=== PATIENT | female | born 1945 | race Caucasian/White ===

== ENCOUNTER 2019-07-15 22:16 | Inpatient (IN) | payer MEDICARE, OTHER ==
[2019-07-16] MEDS: INSULIN LISPRO SLIDING SCALE 100 UNITS/ML UNIT SUBQ SCH ×4 (07:30→20:57)
[2019-07-16] MEDS ORDERED: Tolterodine Tartrate 4 mg ER Cap PO SCH (09:00)
[2019-07-16] MEDS ORDERED: Non-Formulary Item 1 EA (Duloxetine Hcl [Cymbalta] 60 MG) PO SCH (09:00)
[2019-07-16] MEDS: Levothyroxine 0.025 Mg Tab PO SCH (09:00)
[2019-07-16] MEDS: Potassium Chloride 20 mEq ER Tab PO SCH (09:18)
[2019-07-16] MEDS: Aspirin 81mg Chewable Tab PO SCH (09:21)
[2019-07-16] MEDS: Albuterol/Ipratropium Neb 3 ML AERS HHN SCH ×2 (09:30→12:09)
--- NOTE | 2019-07-16 09:43 | Psychiatric Evaluation ---
DATE OF SERVICE: 07/16/2019 HISTORY OF PRESENT ILLNESS: This is a 74-year-old female medically cleared from [place] and when coming from [facility], the patient was apparently very aggressive, verbally abusive, threatening roommate. The patient tells me she has a history of schizophrenia, telling me that "they wanted me to call the devil." The patient noting that she hears voices, believes that she needs to contact the devil, very depressed, upset. PAST PSYCHIATRIC HISTORY: Admissions in the past, diagnosis of schizophrenia. Unclear when signs and symptoms worsened. FAMILY HISTORY: Noncontributory. SOCIAL HISTORY: Born in [place]. Not . She has 3 kids, but does not live with them, "they don't want me." MEDICATIONS: Noted. MENTAL STATUS EXAMINATION: Stated age. Fair eye contact. Speech within normal limits. Mood "okay." Affect flat. Thought processes were tangential. No overt SI or HI. The patient with voices, talking about the devil, calling the devil. Insight and judgment diminished. PROVISIONAL DIAGNOSES: Mood, unspecified; also schizophrenia. MEDICAL: Please see full H and P. ASSESSMENT: The patient requiring hospitalization, agitated, aggressive psychotically driven agitation, voices talking about the devil. TREATMENT PLAN: Includes group as well as milieu therapy, adjustment of medications. CONDITIONS FOR DISCHARGE: Improved mood, improved affect, better control of her psychotic symptoms, agitation. [facility]# [id number]
--- NOTE | 2019-07-16 18:05 | Consultation ---
DATE OF CONSULTATION: 07/16/2019 INTERNAL MEDICINE CONSULTATION REQUESTING PHYSICIAN: Lorne Velásquez M.D. REASON FOR CONSULT: Medical management. HISTORY OF PRESENT ILLNESS: This is a 74-year-old female with a history of diabetes with peripheral neuropathy, COPD, previous history of left lower lobe cellulitis, who was transferred from [facility] to [facility] for aggressive behavior including verbal abuse. The patient has a history of schizophrenia and states that she got aggressive because of her roommate bothering her. She denies any major symptomatology except for leg pain. The patient was admitted to [facility] for further management and care. PAST MEDICAL HISTORY: As noted above. Hypertension and hypothyroidism. PAST SURGICAL HISTORY: One . FAMILY HISTORY: Noncontributory to this admission. SOCIAL HISTORY: Previous smoker - the patient states that she only smoked for a few years and it was about a pack a week. Denies any ETOH and illicit drug usage. Currently lives at [facility]. ALLERGIES: PENICILLIN. OUTPATIENT MEDICATIONS: DuoNeb every 6 p.r.n. for SOB, aspirin 81 every day, Colace 100 mg b.i.d., Cymbalta 60 mg daily, Lexapro 5 mg at bedtime, Lasix 20 mg every day, gabapentin 300 mg every day, [place] 10/325 q. 4 p.r.n. for severe pain, Lantus 26 units at bedtime, insulin sliding scale, Humulin insulin sliding scale, levothyroxine 25 mcg every day, metoprolol 25 mg every day, potassium chloride 20 mEq every day, temazepam 15 mg at bedtime, and Detrol-LA 4 mg every day. REVIEW OF SYSTEMS: CONSTITUTIONAL: No fever or chills. No recent weight loss. CARDIOVASCULAR: No chest pain or palpitations. PULMONARY: Morning cough, but no shortness of breath. No recent COPD exacerbations. GASTROINTESTINAL: No bowel habit changes. GENITOURINARY: No bladder habit changes. NEUROLOGIC: No changes in vision. No headaches. Denies any syncope. PHYSICAL EXAMINATION: VITAL SIGNS: Temperature 98.0, pulse 101, respirations 19, BP 132/82, satting 95% on room air. GENERAL: She is a well-developed, well-nourished female, currently lying in bed, appears to be in no acute distress. She is awake, alert and oriented x 3. HEAD AND NECK: Normocephalic, atraumatic. Pupils are reactive to light. Extraocular movements are intact. Oropharynx is moist and clear. CARDIOVASCULAR: Regular rate and rhythm without any murmurs. LUNGS: Decreased to auscultation with fine crackles upon deep inspiration. ABDOMEN: Soft, supple, nontender, nondistended, normoactive bowel sounds. EXTREMITIES: Lower extremity: Currently, there is no pedal edema noted. There is no erythema, no clubbing or cyanosis. LABORATORY DATA: No labs available. ASSESSMENT: 1. Acute psych decompensation. 2. History of schizophrenia. 3. Type 2 diabetes with diabetic neuropathy. 4. Previous history of lower extremity cellulitis. 5. History of hypothyroidism. 6. Essential hypertension. PLAN: The patient has been admitted to the [facility] for further management and care. The patient will be kept on her current medications as scheduled. I will ask for basic lab work including a CBC, CMP, A1c, TSH and a lipid profile. UA will also be ordered. JOB# [id number]
[2019-07-16] MEDS: Insulin Glargine 100 units/ml 10ml Vial SUBQ SCH (20:54)
[2019-07-17] MEDS: Escitalopram Oxalate 5 mg Tab PO SCH ×2 (00:12→20:20)
[2019-07-17] MEDS: Albuterol/Ipratropium Neb 3 ML AERS HHN SCH ×5 (00:12→17:32)
[2019-07-17] MEDS: INSULIN LISPRO SLIDING SCALE 100 UNITS/ML UNIT SUBQ SCH ×4 (06:54→20:22)
[2019-07-17] MEDS: Levothyroxine 0.025 Mg Tab PO SCH (06:55)
--- NOTE | 2019-07-17 08:53 | Progress Notes ---
DATE: 07/17/2019 PROGRESS NOTE SUBJECTIVE: Chart was reviewed and the patient interviewed. Also discussed the patient's condition with the staff and reviewed records and labs. The patient is still reporting "I am hearing voices talking about the devil." She also is still depressed and anxious. The patient also is guarded and withdrawn and she is selectively mute. Also, during interview, the patient is in a depressed mood with flat affect and minimum interaction. She is still reporting auditory hallucinations, but denies any thoughts of suicide. ASSESSMENT: The patient is still depressed and psychotic. TREATMENT PLAN: Continue to monitor her behavior and her condition closely. Also, the patient started on Abilify and Lexapro and Cymbalta with no side effects. We will continue same dose. Also, encouraged the patient to interact more with others and to socialize more. JOB# [id number]
[2019-07-17] MEDS: Potassium Chloride 20 mEq ER Tab PO SCH (09:09)
[2019-07-17] MEDS: Aspirin 81mg Chewable Tab PO SCH (09:10)
[2019-07-17] MEDS: Insulin Glargine 100 units/ml 10ml Vial SUBQ SCH (20:21)
--- NOTE | 2019-07-17 21:12 | Internal Medicine Prog Note ---
Internal Medicine Subjective - Subjective Service Date: 07/17/19 (comfortable) Patient seen and examined:: without staff Patient is:: awake Per staff patient has:: no adverse event Internal Medicine Objective - Results Recent Labs: Laboratory Last Values POC Glucose 188 MG/DL (70 - 105) H 07/17/19 19:59 - Physical Exam Vitals and I&O: Vital Signs Temp 98.7 F 07/17/19 20:24 Pulse 106 07/17/19 20:24 Resp 20 07/17/19 20:24 BP 115/78 07/17/19 20:24 Pulse Ox 95 07/17/19 20:24 Intake & Output 07/17/19 07/17/19 07/18/19 06:59 18:59 06:59 Intake Total 120 120 Balance 120 120 Intake: Oral 120 120 Other: # Voids 3 3 2 # Bowel Movements 0 0 0 Active Medications: Current Medications Acetaminophen/Hydrocodone Bitart ([place] 10 Mg/325 Mg) 1 tab PO Q4H PRN PRN Reason: Pain (Severe 7-10) Stop: 09/14/19 03:44 Albuterol/Ipratropium (Duoneb Neb) 3 ml HHN Q6HR [facility] Stop: 09/14/19 07:59 Last Admin: 07/17/19 12:00 Dose: Not Given Aripiprazole (Abilify) 5 mg PO DAILY [facility]; Protocol Stop: 09/14/19 08:59 Last Admin: 07/17/19 09:10 Dose: 5 mg Aspirin (Aspirin Chewable) 81 mg PO DAILY [facility] Stop: 09/14/19 08:59 Last Admin: 07/17/19 09:10 Dose: 81 mg Docusate Sodium (Colace) 100 mg PO BID [facility] Stop: 09/14/19 08:59 Last Admin: 07/17/19 16:41 Dose: 100 mg Duloxetine HCl (Cymbalta) 60 mg PO DAILY [facility]; Protocol Stop: 09/15/19 08:59 Last Admin: 07/17/19 09:11 Dose: 60 mg Escitalopram Oxalate (Lexapro) 5 mg PO HS [facility]; Protocol Stop: 09/14/19 20:59 Last Admin: 07/17/19 20:20 Dose: 5 mg Furosemide (Lasix) 20 mg PO DAILY [facility] Stop: 09/14/19 08:59 Last Admin: 07/17/19 09:09 Dose: 20 mg Gabapentin (Neurontin) 300 mg PO DAILY [facility] Stop: 09/14/19 08:59 Last Admin: 07/17/19 09:09 Dose: 300 mg Insulin Glargine (Lantus Insulin) 26 units SUBQ HS [facility] Stop: 09/14/19 20:59 Last Admin: 07/17/19 20:21 Dose: 26 unit Insulin Human Lispro (Humalog Insulin Sliding Scale) 0 units SUBQ ACHS [facility] Stop: 09/14/19 07:29 Last Admin: 07/17/19 20:22 Dose: 2 units Levothyroxine Sodium (Synthroid) 0.025 mg PO QDAC [facility] Stop: 09/14/19 08:29 Last Admin: 07/17/19 06:55 Dose: 0.025 mg Lorazepam (Ativan) 0.5 mg PO Q4HR PRN; Protocol PRN Reason: Anxiety Stop: 08/15/19 02:54 Metoprolol Succinate (Toprol Xl) 50 mg PO DAILY [facility] Stop: 09/14/19 08:59 Last Admin: 07/17/19 09:10 Dose: 50 mg Potassium Chloride (Klor-Con) 20 meq PO DAILY [facility] Stop: 09/14/19 08:59 Last Admin: 07/17/19 09:09 Dose: 20 meq Temazepam (Restoril) 15 mg PO HS [facility]; Protocol Stop: 09/14/19 20:59 Last Admin: 07/17/19 20:22 Dose: 15 mg Tolterodine Tartrate (Detrol) 2 mg PO BID [facility] Stop: 09/14/19 09:59 Last Admin: 07/17/19 16:41 Dose: 2 mg Internal Medicine Assmt/Plan - Assessment Assessment: SSESSMENT: 1. Acute psych decompensation. 2. History of schizophrenia. 3. Type 2 diabetes with diabetic neuropathy. 4. Previous history of lower extremity cellulitis. 5. History of hypothyroidism. 6. Essential hypertension. - Plan Plan: CONT WITH CURRENT TX PLAN MONITOR WITH CURRENT GLUCOMETER CHECKS
[2019-07-18] MEDS: Albuterol/Ipratropium Neb 3 ML AERS HHN SCH ×4 (00:23→17:54)
[2019-07-18] MEDS: INSULIN LISPRO SLIDING SCALE 100 UNITS/ML UNIT SUBQ SCH ×4 (06:38→22:00)
[2019-07-18] MEDS: Levothyroxine 0.025 Mg Tab PO SCH (06:38)
--- NOTE | 2019-07-18 06:53 | Progress Notes ---
DATE: 07/18/2019 SUBJECTIVE: Chart was reviewed and the patient interviewed. Also discussed the patient's condition with the staff and reviewed records and labs. "I don't like you." The patient was yelling and screaming at me when I was trying to talk to her, saying that she does not like me and she refused to answer any of my questions. The patient also is easily irritable and easily agitated and suspicious and paranoid. She also is still isolative and withdrawn and tends to stay by herself most of the time. The patient also is angry for no apparent reason. Otherwise, the patient is compliant with taking her medications, but refused to have breathing treatment yesterday. She also still reports auditory hallucinations. She cannot elaborate on what are the voices telling her. ASSESSMENT: The patient is still psychotic, depressed, and paranoid. TREATMENT PLAN: The patient started on Abilify and Lexapro. We will continue same dose. We will adjust the dose according to her response. Also, we will continue to work on her ineffective coping and irritability. JOB# [id number]
[2019-07-18] MEDS: Aspirin 81mg Chewable Tab PO SCH (09:02)
[2019-07-18] MEDS: Potassium Chloride 20 mEq ER Tab PO SCH (09:02)
[2019-07-18] MEDS: Hydrocodone/APAP 10 mg/325 mg Tab PO PRN (16:52)
--- NOTE | 2019-07-18 19:25 | Internal Medicine Prog Note ---
Internal Medicine Subjective - Subjective Service Date: 07/18/19 (No acute events ) Patient seen and examined:: without staff Patient is:: awake Per staff patient has:: no adverse event Internal Medicine Objective - Results Recent Labs: Laboratory Last Values POC Glucose 227 MG/DL (70 - 105) H 07/18/19 16:45 - Physical Exam Vitals and I&O: Vital Signs Temp 96.9 F 07/18/19 14:00 Pulse 64 07/18/19 14:00 Resp 20 07/18/19 14:00 BP 108/53 07/18/19 14:00 Pulse Ox 97 07/18/19 14:00 Intake & Output 07/18/19 07/18/19 07/19/19 06:59 18:59 06:59 Intake Total 240 1200 Balance 240 1200 Intake: Oral 240 1200 Other: # Voids 2 4 # Bowel Movements 0 0 Active Medications: Current Medications Acetaminophen/Hydrocodone Bitart ([place] 10 Mg/325 Mg) 1 tab PO Q4H PRN PRN Reason: Pain (Severe 7-10) Stop: 09/14/19 03:44 Last Admin: 07/18/19 16:52 Dose: 1 tab Albuterol/Ipratropium (Duoneb Neb) 3 ml HHN Q6HR [facility] Stop: 09/14/19 07:59 Last Admin: 07/18/19 17:54 Dose: Not Given Aripiprazole (Abilify) 5 mg PO DAILY [facility]; Protocol Stop: 09/14/19 08:59 Last Admin: 07/18/19 09:02 Dose: 5 mg Aspirin (Aspirin Chewable) 81 mg PO DAILY [facility] Stop: 09/14/19 08:59 Last Admin: 07/18/19 09:02 Dose: 81 mg Docusate Sodium (Colace) 100 mg PO BID [facility] Stop: 09/14/19 08:59 Last Admin: 07/18/19 16:42 Dose: 100 mg Duloxetine HCl (Cymbalta) 60 mg PO DAILY [facility]; Protocol Stop: 09/15/19 08:59 Last Admin: 07/18/19 09:02 Dose: 60 mg Escitalopram Oxalate (Lexapro) 5 mg PO HS [facility]; Protocol Stop: 09/14/19 20:59 Last Admin: 07/17/19 20:20 Dose: 5 mg Furosemide (Lasix) 20 mg PO DAILY [facility] Stop: 09/14/19 08:59 Last Admin: 07/18/19 09:02 Dose: 20 mg Gabapentin (Neurontin) 300 mg PO DAILY [facility] Stop: 09/14/19 08:59 Last Admin: 07/18/19 09:02 Dose: 300 mg Insulin Glargine (Lantus Insulin) 26 units SUBQ HS [facility] Stop: 09/14/19 20:59 Last Admin: 07/17/19 20:21 Dose: 26 unit Insulin Human Lispro (Humalog Insulin Sliding Scale) 0 units SUBQ ACHS [facility] Stop: 09/14/19 07:29 Last Admin: 07/18/19 16:47 Dose: 4 units Levothyroxine Sodium (Synthroid) 0.025 mg PO QDAC [facility] Stop: 09/14/19 08:29 Last Admin: 07/18/19 06:38 Dose: 0.025 mg Lorazepam (Ativan) 0.5 mg PO Q4HR PRN; Protocol PRN Reason: Anxiety Stop: 08/15/19 02:54 Metoprolol Succinate (Toprol Xl) 50 mg PO DAILY [facility] Stop: 09/14/19 08:59 Last Admin: 07/18/19 09:03 Dose: 50 mg Potassium Chloride (Klor-Con) 20 meq PO DAILY [facility] Stop: 09/14/19 08:59 Last Admin: 07/18/19 09:02 Dose: 20 meq Temazepam (Restoril) 15 mg PO HS [facility]; Protocol Stop: 09/14/19 20:59 Last Admin: 07/17/19 20:22 Dose: 15 mg Tolterodine Tartrate (Detrol) 2 mg PO BID [facility] Stop: 09/14/19 09:59 Last Admin: 07/18/19 16:43 Dose: 2 mg Internal Medicine Assmt/Plan - Assessment Assessment: SSESSMENT: 1. Acute psych decompensation. 2. History of schizophrenia. 3. Type 2 diabetes with diabetic neuropathy. 4. Previous history of lower extremity cellulitis. 5. History of hypothyroidism. 6. Essential hypertension. - Plan Plan: CONT WITH CURRENT TX PLAN MONITOR WITH CURRENT GLUCOMETER CHECKS
[2019-07-18] MEDS: Escitalopram Oxalate 5 mg Tab PO SCH (21:50)
[2019-07-18] MEDS: Insulin Glargine 100 units/ml 10ml Vial SUBQ SCH (22:00)
[2019-07-19] MEDS: Albuterol/Ipratropium Neb 3 ML AERS HHN SCH ×3 (06:08→16:16)
[2019-07-19] MEDS: Levothyroxine 0.025 Mg Tab PO SCH (06:36)
[2019-07-19] MEDS: Hydrocodone/APAP 10 mg/325 mg Tab PO PRN (06:36)
[2019-07-19] MEDS: INSULIN LISPRO SLIDING SCALE 100 UNITS/ML UNIT SUBQ SCH ×4 (06:37→21:14)
[2019-07-19] MEDS: Aspirin 81mg Chewable Tab PO SCH (08:30)
[2019-07-19] MEDS: Potassium Chloride 20 mEq ER Tab PO SCH (08:31)
--- NOTE | 2019-07-19 08:39 | Progress Notes ---
DATE: 07/19/2019 PSYCHIATRIC PROGRESS NOTE SUBJECTIVE: Chart reviewed and the patient interviewed. Also discussed the patient's condition with the staff and reviewed records and labs. The patient continued to be in angry and in irritable mood and at the same time depressed and withdrawn. The patient wants to be left alone. Also, she continued to have unpredictable behavior. Also, continued to have severe mood swings. Otherwise, the patient is compliant with taking her medications with no side effects of medications. ASSESSMENT: The patient is still depressed and is still psychotic and paranoid. TREATMENT PLAN: Continue to monitor her behavior and her condition closely. Also, we will increase Abilify to 10 mg every day and we will increase Lexapro to 10 mg every day and we will continue to follow up her behavior and her medications closely. [facility]# [id number]
[2019-07-19] MEDS: Insulin Glargine 100 units/ml 10ml Vial SUBQ SCH (21:13)
[2019-07-20] MEDS: Levothyroxine 0.025 Mg Tab PO SCH (06:48)
[2019-07-20] MEDS: INSULIN LISPRO SLIDING SCALE 100 UNITS/ML UNIT SUBQ SCH ×4 (06:50→20:36)
[2019-07-20] MEDS: Albuterol/Ipratropium Neb 3 ML AERS HHN SCH ×4 (06:56→18:09)
[2019-07-20] MEDS: Aspirin 81mg Chewable Tab PO SCH (10:28)
[2019-07-20] MEDS: Potassium Chloride 20 mEq ER Tab PO SCH (10:30)
[2019-07-20] MEDS: Hydrocodone/APAP 10 mg/325 mg Tab PO PRN (17:18)
[2019-07-20] MEDS: Insulin Glargine 100 units/ml 10ml Vial SUBQ SCH (20:37)
--- NOTE | 2019-07-20 21:21 | Progress Notes ---
DATE: 07/20/[address] Velásquez. Case was discussed with staff of the patient, reviewed records. A 74-year-old female who was admitted on 07/16/2019 after she was medically cleared to [place] from [facility]. The patient was very aggressive, verbally abusive, threatening roommate. "They wanted me to call the devil." The patient noted that she hears voices, believes that she needs to contact the devil, depressed, upset with a history of schizophrenia. The patient continues to be angry, irritable. Continues to have poor insight, depressed, withdrawn, like to be left alone, unpredictable, paranoid. She is on Abilify that was increased yesterday to 10 mg daily and Lexapro was increased to 10 mg daily. No side effects with the medication, no sedation, no nausea, no extrapyramidal symptoms. She is also on Cymbalta 60 mg daily. We will continue outpatient group therapy, milieu therapy, adjust medication as needed. JOB# [id number]
[2019-07-21] MEDS: Albuterol/Ipratropium Neb 3 ML AERS HHN SCH ×4 (00:04→18:16)
[2019-07-21] MEDS: Hydrocodone/APAP 10 mg/325 mg Tab PO PRN (00:37)
[2019-07-21] MEDS: INSULIN LISPRO SLIDING SCALE 100 UNITS/ML UNIT SUBQ SCH ×4 (06:55→21:49)
[2019-07-21] MEDS: Levothyroxine 0.025 Mg Tab PO SCH (06:56)
[2019-07-21] MEDS: Potassium Chloride 20 mEq ER Tab PO SCH (09:27)
[2019-07-21] MEDS: Aspirin 81mg Chewable Tab PO SCH (09:27)
--- NOTE | 2019-07-21 14:46 | Progress Notes ---
DATE: 07/21/2019 Case was discussed with staff of the patient, reviewed records. The patient continues to be abusive, aggressive, threatening roommate. She moved to a room by herself. Continues to be delusional, hearing voices, depressed, with a history of schizophrenia. Continues to be unpredictable, impulsive, needing redirection. She is compliant with the medication with no side effects, no sedation, no nausea, no extrapyramidal symptoms. We will continue outpatient group therapy, milieu therapy, adjust medication as needed. JOB# [id number]
[2019-07-21] MEDS: Insulin Glargine 100 units/ml 10ml Vial SUBQ SCH (21:48)
[2019-07-22] MEDS: Albuterol/Ipratropium Neb 3 ML AERS HHN SCH ×3 (06:23→13:35)
[2019-07-22] MEDS: INSULIN LISPRO SLIDING SCALE 100 UNITS/ML UNIT SUBQ SCH ×4 (06:57→20:35)
[2019-07-22] MEDS: Levothyroxine 0.025 Mg Tab PO SCH (07:51)
[2019-07-22] MEDS: Potassium Chloride 20 mEq ER Tab PO SCH (08:38)
[2019-07-22] MEDS: Aspirin 81mg Chewable Tab PO SCH (08:39)
[2019-07-22] MEDS: Hydrocodone/APAP 10 mg/325 mg Tab PO PRN ×2 (08:50→21:15)
--- NOTE | 2019-07-22 09:50 | Progress Notes ---
DATE: 07/22/2019 SUBJECTIVE: Chart was reviewed and the patient interviewed. Also discussed the patient's condition with the staff and reviewed records and labs. The patient is still in irritable mood and she is still easily agitated. The patient also wants to be left alone and she is still depressed and withdrawn with flat affect. The patient also is still asking for more pain medicine. Otherwise, the patient is compliant with taking her medications with no side effects of medications. ASSESSMENT: The patient is still depressed and is still psychotic. TREATMENT PLAN: Continue to monitor her behavior and her condition closely. Also, continue Abilify, Cymbalta and Lexapro same dose and continue to work on her ineffective coping. JOB# [id number]
[2019-07-22] MEDS: Insulin Glargine 100 units/ml 10ml Vial SUBQ SCH (20:37)
[2019-07-23] MEDS: Albuterol/Ipratropium Neb 3 ML AERS HHN SCH ×4 (06:40→17:31)
[2019-07-23] MEDS: Levothyroxine 0.025 Mg Tab PO SCH (06:41)
[2019-07-23] MEDS: INSULIN LISPRO SLIDING SCALE 100 UNITS/ML UNIT SUBQ SCH ×4 (06:51→20:35)
--- NOTE | 2019-07-23 07:19 | Progress Notes ---
DATE: PSYCHIATRIC PROGRESS NOTE SUBJECTIVE: Chart was reviewed and the patient interviewed. Also discussed the patient's condition with the staff and reviewed records and labs. The patient is extremely angry and for some reason, she does not want to talk to me and she waved with her hand to get out of her room. She is still severely paranoid and suspicious and she still has severe mood swings and easily irritable and agitated. Otherwise, the patient is compliant with taking her medications with no side effects of medications. ASSESSMENT: The patient is still psychotic and is still agitated. TREATMENT PLAN: Continue to monitor her behavior and her condition closely. Also, continue to work on discharge plans and placement issue. ADDENDUM Because of the patient's paranoia and agitation, we will increase Abilify to 20 mg every day. Also, we will increase gabapentin to 300 mg twice a day and continue to follow up closely. JOB# [id number]
--- NOTE | 2019-07-23 07:34 | Internal Medicine Prog Note ---
Internal Medicine Subjective - Subjective Service Date: 07/23/19 (no events or distress) Patient seen and examined:: without staff Patient is:: awake Per staff patient has:: no adverse event Internal Medicine Objective - Results Recent Labs: Laboratory Last Values POC Glucose 143 MG/DL (70 - 105) H 07/23/19 06:11 - Physical Exam Vitals and I&O: Vital Signs Temp 0 F 07/23/19 06:11 Pulse 84 07/22/19 20:05 Resp 20 07/22/19 20:05 BP 129/61 07/22/19 20:05 Pulse Ox 99 07/22/19 20:05 Intake & Output 07/22/19 07/23/19 07/23/19 18:59 06:59 18:59 Intake Total 240 Balance 240 Intake: Oral 240 Other: # Voids 2 3 # Bowel Movements 0 0 Active Medications: Current Medications Acetaminophen/Hydrocodone Bitart ([place] 10 Mg/325 Mg) 1 tab PO Q4H PRN PRN Reason: Pain (Severe 7-10) Stop: 09/14/19 03:44 Last Admin: 07/22/19 21:15 Dose: 1 tab Albuterol/Ipratropium (Duoneb Neb) 3 ml HHN Q6HR [facility] Stop: 09/14/19 07:59 Last Admin: 07/23/19 06:40 Dose: Not Given Aripiprazole (Abilify) 20 mg PO DAILY [facility]; Protocol Stop: 09/21/19 08:59 Aspirin (Aspirin Chewable) 81 mg PO DAILY [facility] Stop: 09/14/19 08:59 Last Admin: 07/22/19 08:39 Dose: 81 mg Docusate Sodium (Colace) 100 mg PO BID [facility] Stop: 09/14/19 08:59 Last Admin: 07/22/19 16:09 Dose: 100 mg Duloxetine HCl (Cymbalta) 60 mg PO DAILY [facility]; Protocol Stop: 09/15/19 08:59 Last Admin: 07/22/19 08:39 Dose: 60 mg Escitalopram Oxalate (Lexapro) 10 mg PO HS [facility]; Protocol Stop: 09/17/19 20:59 Last Admin: 07/22/19 20:35 Dose: 10 mg Furosemide (Lasix) 20 mg PO DAILY [facility] Stop: 09/14/19 08:59 Last Admin: 07/22/19 08:39 Dose: 20 mg Gabapentin (Neurontin) 300 mg PO BID [facility] Stop: 09/21/19 08:59 Insulin Glargine (Lantus Insulin) 26 units SUBQ HS [facility] Stop: 09/14/19 20:59 Last Admin: 07/22/19 20:37 Dose: 26 unit Insulin Human Lispro (Humalog Insulin Sliding Scale) 0 units SUBQ ACHS [facility] Stop: 09/14/19 07:29 Last Admin: 07/23/19 06:51 Dose: Not Given Levothyroxine Sodium (Synthroid) 0.025 mg PO QDAC [facility] Stop: 09/14/19 08:29 Last Admin: 07/23/19 06:41 Dose: 0.025 mg Lorazepam (Ativan) 0.5 mg PO Q4HR PRN; Protocol PRN Reason: Anxiety Stop: 08/15/19 02:54 Last Admin: 07/19/19 16:34 Dose: 0.5 mg Metoprolol Succinate (Toprol Xl) 50 mg PO DAILY [facility] Stop: 09/14/19 08:59 Last Admin: 07/22/19 08:39 Dose: 50 mg Potassium Chloride (Klor-Con) 20 meq PO DAILY [facility] Stop: 09/14/19 08:59 Last Admin: 07/22/19 08:38 Dose: 20 meq Temazepam (Restoril) 15 mg PO HS [facility]; Protocol Stop: 09/14/19 20:59 Last Admin: 07/22/19 20:35 Dose: 15 mg Tolterodine Tartrate (Detrol) 2 mg PO BID [facility] Stop: 09/14/19 09:59 Last Admin: 07/22/19 16:10 Dose: 2 mg HEENT: NC/AT, PERRLA Neck: Supple, No LAD Lungs: CTAB Cardiovascular: RRR, Normal S1, Normal S2 Abdomen: soft, non-tender, non-distended Extremities: clear Internal Medicine Assmt/Plan - Assessment Assessment: SSESSMENT: 1. Acute psych decompensation. 2. History of schizophrenia. 3. Type 2 diabetes with diabetic neuropathy. 4. Previous history of lower extremity cellulitis. 5. History of hypothyroidism. 6. Essential hypertension. - Plan Plan: CONT WITH CURRENT TX PLAN MONITOR WITH CURRENT GLUCOMETER CHECKS Nutritional Asmnt/Malnutr-PDOC - Dietary Evaluation Malnutrition Findings (Please click <Entered> for more info): Nutritional Asmnt/Malnutrition Start: 07/19/19 15: 53 Text: Status: Complete Freq: Protocol: Document 07/19/19 15:53 QUIQUE (Rec: 07/19/19 15:56 [email or web address] [id number]) Nutritional Asmnt/Malnutrition Patient General Information Nutritional Screening Moderate Risk Diagnosis Psychosis Pertinent Medical Hx/Surgical Hx Schizophrenia, DM, Peripheral Neuropathy, COPD, HTN, Hypothyroidism Subjective Information Pt is a 74-year-old female admitted on 07/16 d/t aggressiveness, verbally abusive, threatening to roommate. Pt only ate 50% meals on admit date, refused meals the next day and ate 50% , 75%,75% yesterday. Visited pt in room, she stated the food was good today. She understands she has diabetes and understands her Diet Rx. Educated her on not having juice in between meals and making sure she drinks lots of water and milk at meals. Pt stated understanding. Will continue to monitor PO intake. Anthropometrics HT: 52 WT: 169 LB (76.82 kg) ABW: 125 LB (56.70 kg) BMI: 30.91 (Obese) GI/ Skin Integrity GI: WNL, Soft, Non-tender, Round, Large BM: Not Noted I/O: 1320/Not Noted Skin: Dryness, Rt lateral knee dry scab, Distal lower extremities dry scabs Castro: 16 Diet Order: [facility] Estimated Energy Needs: (Obese , ABW) 0288-7549 kcals (20-25 kcals/ kg) 45-56g Pro (0.8-1.0 g/kg) 7778-3082 ml (25-30 ml/kg) Current Diet Order/ Nutrition Support [facility] Pertinent Medications Albuterol, Colace, Lasix, Lantus, INS-SS, Synthroid, Klor-Con Pertinent Labs 07/17: Glucose 179, Alk Phos 123, Tags 205, HDL 30, A1c 8.8 % Nutritional Hx/Data Height 1.57 m Height (Calculated Centimeters) 157.5 Current Weight (lbs) 76.657 kg Weight (Calculated Kilograms) 76.7 Weight (Calculated Grams) 84328.1 [place] Body Weight 110 LB (50 kg) % [place] Body Weight 154 Body Mass Index (BMI) 30.9 Weight Status Obese GI Symptoms GI Symptoms None Last BM Not Noted Skin Integrity/Comment: Skin: Dryness, Rt lateral knee dry scab, Distal lower extremities dry scabs Castro: 16 Current %PO Fair (50-74%) Estimated Nutritional Goals BEE in Kcals: Adj wt of IBW Calories/Kcals/Kg 20-25 Kcals Calculated 2775-5780 Protein: Adj wt of IBW Protein g/k.8-1.0 Protein Calculated 45-56 Fluid: ml 3055-2106 ml (25-30 ml/kg) Nutritional Problem 2. Problem Problem Obesity Etiology r/t consistent energy overconsumption Signs/Symptoms: aeb BMI 30.91 (obese). 1. Problem Problem Impaired nutrient utilization Etiology r/t endocrine dysfunction Signs/Symptoms: aeb labs (07/17) glucose 179, A1c 8.8%. Malnutrition Related to Morbid Obesity Malnutrition related to morbid obesity No Intervention/Recommendation Comments 1.Continue CCHO diet as tolerated. 2.Continue antihyperglycemic medications for glucose control per MD order. Expected Outcomes/Goals Expected Outcomes/Goals 1.PO intake to meet 75% of estimated nutritional needs. 2.Monitor PO intake, wt, nutrition related labs to trend WNL, and skin integrity to trend WNL. 3.F/U as moderate risk in 3-5 days, -07/24
[2019-07-23] MEDS: Aspirin 81mg Chewable Tab PO SCH (09:05)
[2019-07-23] MEDS: Potassium Chloride 20 mEq ER Tab PO SCH (09:06)
[2019-07-23] MEDS: Hydrocodone/APAP 10 mg/325 mg Tab PO PRN (09:06)
[2019-07-23] MEDS: Insulin Glargine 100 units/ml 10ml Vial SUBQ SCH (20:34)
[2019-07-24] MEDS: Albuterol/Ipratropium Neb 3 ML AERS HHN SCH ×4 (00:10→17:08)
[2019-07-24] MEDS: Hydrocodone/APAP 10 mg/325 mg Tab PO PRN (06:41)
[2019-07-24] MEDS: Levothyroxine 0.025 Mg Tab PO SCH (06:41)
[2019-07-24] MEDS: INSULIN LISPRO SLIDING SCALE 100 UNITS/ML UNIT SUBQ SCH ×4 (06:42→20:23)
--- NOTE | 2019-07-24 07:45 | Progress Notes ---
DATE: 07/24/2019 SUBJECTIVE: Chart was reviewed and the patient interviewed. Also, discussed the patient's condition with the staff and reviewed records and labs. The patient continued to be suspicious and paranoid and selectively mute. She also is still isolative and wants to be left alone. Also, forgetful and needs redirections. The patient also still seems to be in a depressed mood. Otherwise, the patient continued to comply with taking her medications and the patient continued to take Abilify that was increased to 20 mg every day as well as Cymbalta 60 mg every day and Neurontin 300 mg twice a day as well as Lexapro 10 mg every day. Also, continue to work on her anger and her irritable mood. JOB# [id number]
[2019-07-24] MEDS: Aspirin 81mg Chewable Tab PO SCH (08:46)
[2019-07-24] MEDS: Potassium Chloride 20 mEq ER Tab PO SCH (08:46)
[2019-07-24] MEDS: Insulin Glargine 100 units/ml 10ml Vial SUBQ SCH (20:22)
--- NOTE | 2019-07-24 21:14 | Internal Medicine Prog Note ---
Internal Medicine Subjective - Subjective Service Date: 07/24/19 (no events) Patient is:: awake Per staff patient has:: no adverse event Internal Medicine Objective - Results Recent Labs: Laboratory Last Values POC Glucose 199 MG/DL (70 - 105) H 07/24/19 20:18 - Physical Exam Vitals and I&O: Vital Signs Temp 97.7 F 07/24/19 21:00 Pulse 97 07/24/19 21:00 Resp 20 07/24/19 21:00 BP 133/79 07/24/19 21:00 Pulse Ox 99 07/24/19 21:00 Intake & Output 07/24/19 07/24/19 07/25/19 06:59 18:59 06:59 Intake Total 120 850 120 Balance 120 850 120 Intake: Oral 120 850 120 Other: # Voids 1 2 # Bowel Movements 1 0 Active Medications: Current Medications Acetaminophen/Hydrocodone Bitart ([place] 10 Mg/325 Mg) 1 tab PO Q4H PRN PRN Reason: Pain (Severe 7-10) Stop: 09/14/19 03:44 Last Admin: 07/24/19 06:41 Dose: 1 tab Albuterol/Ipratropium (Duoneb Neb) 3 ml HHN Q6HR [facility] Stop: 09/14/19 07:59 Last Admin: 07/24/19 17:08 Dose: Not Given Aripiprazole (Abilify) 20 mg PO DAILY [facility]; Protocol Stop: 09/21/19 08:59 Last Admin: 07/24/19 08:46 Dose: 20 mg Aspirin (Aspirin Chewable) 81 mg PO DAILY [facility] Stop: 09/14/19 08:59 Last Admin: 07/24/19 08:46 Dose: 81 mg Docusate Sodium (Colace) 100 mg PO BID [facility] Stop: 09/14/19 08:59 Last Admin: 07/24/19 17:05 Dose: 100 mg Duloxetine HCl (Cymbalta) 60 mg PO DAILY [facility]; Protocol Stop: 09/15/19 08:59 Last Admin: 07/24/19 08:46 Dose: 60 mg Escitalopram Oxalate (Lexapro) 10 mg PO HS [facility]; Protocol Stop: 09/17/19 20:59 Last Admin: 07/24/19 20:22 Dose: 10 mg Furosemide (Lasix) 20 mg PO DAILY [facility] Stop: 09/14/19 08:59 Last Admin: 07/24/19 08:48 Dose: 20 mg Gabapentin (Neurontin) 300 mg PO BID [facility] Stop: 09/21/19 08:59 Last Admin: 07/24/19 17:06 Dose: 300 mg Insulin Glargine (Lantus Insulin) 26 units SUBQ HS [facility] Stop: 09/14/19 20:59 Last Admin: 07/24/19 20:22 Dose: 26 unit Insulin Human Lispro (Humalog Insulin Sliding Scale) 0 units SUBQ ACHS [facility] Stop: 09/14/19 07:29 Last Admin: 07/24/19 20:23 Dose: 2 units Levothyroxine Sodium (Synthroid) 0.025 mg PO QDAC [facility] Stop: 09/14/19 08:29 Last Admin: 07/24/19 06:41 Dose: 0.025 mg Lorazepam (Ativan) 0.5 mg PO Q4HR PRN; Protocol PRN Reason: Anxiety Stop: 08/15/19 02:54 Last Admin: 07/19/19 16:34 Dose: 0.5 mg Metoprolol Succinate (Toprol Xl) 50 mg PO DAILY [facility] Stop: 09/14/19 08:59 Last Admin: 07/24/19 08:47 Dose: 50 mg Potassium Chloride (Klor-Con) 20 meq PO DAILY [facility] Stop: 09/14/19 08:59 Last Admin: 07/24/19 08:46 Dose: 20 meq Temazepam (Restoril) 15 mg PO HS [facility]; Protocol Stop: 09/14/19 20:59 Last Admin: 07/24/19 20:22 Dose: 15 mg Tolterodine Tartrate (Detrol) 2 mg PO BID [facility] Stop: 09/14/19 09:59 Last Admin: 07/24/19 17:06 Dose: 2 mg HEENT: NC/AT, PERRLA Neck: Supple, No LAD Lungs: CTAB Cardiovascular: RRR, Normal S1, Normal S2 Abdomen: soft, non-tender, non-distended Extremities: clear Internal Medicine Assmt/Plan - Assessment Assessment: SSESSMENT: 1. Acute psych decompensation. 2. History of schizophrenia. 3. Type 2 diabetes with diabetic neuropathy. 4. Previous history of lower extremity cellulitis. 5. History of hypothyroidism. 6. Essential hypertension. - Plan Plan: CONT WITH CURRENT TX PLAN MONITOR WITH CURRENT GLUCOMETER CHECKS Nutritional Asmnt/Malnutr-PDOC - Dietary Evaluation Malnutrition Findings (Please click <Entered> for more info): Nutritional Asmnt/Malnutrition Start: 07/19/19 15: 53 Text: Status: Complete Freq: Protocol: Document 07/19/19 15:53 QUIQUE (Rec: 07/19/19 15:56 [email or web address]) Nutritional Asmnt/Malnutrition Patient General Information Nutritional Screening Moderate Risk Diagnosis Psychosis Pertinent Medical Hx/Surgical Hx Schizophrenia, DM, Peripheral Neuropathy, COPD, HTN, Hypothyroidism Subjective Information Pt is a 74-year-old female admitted on 07/16 d/t aggressiveness, verbally abusive, threatening to roommate. Pt only ate 50% meals on admit date, refused meals the next day and ate 50% , 75%,75% yesterday. Visited pt in room, she stated the food was good today. She understands she has diabetes and understands her Diet Rx. Educated her on not having juice in between meals and making sure she drinks lots of water and milk at meals. Pt stated understanding. Will continue to monitor PO intake. Anthropometrics HT: 52 WT: 169 LB (76.82 kg) ABW: 125 LB (56.70 kg) BMI: 30.91 (Obese) GI/ Skin Integrity GI: WNL, Soft, Non-tender, Round, Large BM: Not Noted I/O: 1320/Not Noted Skin: Dryness, Rt lateral knee dry scab, Distal lower extremities dry scabs Castro: 16 Diet Order: [facility] Estimated Energy Needs: (Obese , ABW) 2580-6615 kcals (20-25 kcals/ kg) 45-56g Pro (0.8-1.0 g/kg) 1059-5388 ml (25-30 ml/kg) Current Diet Order/ Nutrition Support [facility] Pertinent Medications Albuterol, Colace, Lasix, Lantus, INS-SS, Synthroid, Klor-Con Pertinent Labs 07/17: Glucose 179, Alk Phos 123, Tags 205, HDL 30, A1c 8.8 % Nutritional Hx/Data Height 1.57 m Height (Calculated Centimeters) 157.5 Current Weight (lbs) 76.657 kg Weight (Calculated Kilograms) 76.7 Weight (Calculated Grams) 13267.1 [place] Body Weight 110 LB (50 kg) % [place] Body Weight 154 Body Mass Index (BMI) 30.9 Weight Status Obese GI Symptoms GI Symptoms None Last BM Not Noted Skin Integrity/Comment: Skin: Dryness, Rt lateral knee dry scab, Distal lower extremities dry scabs Castro: 16 Current %PO Fair (50-74%) Estimated Nutritional Goals BEE in Kcals: Adj wt of IBW Calories/Kcals/Kg 20-25 Kcals Calculated 0846-9070 Protein: Adj wt of IBW Protein g/k.8-1.0 Protein Calculated 45-56 Fluid: ml 0665-4846 ml (25-30 ml/kg) Nutritional Problem 2. Problem Problem Obesity Etiology r/t consistent energy overconsumption Signs/Symptoms: aeb BMI 30.91 (obese). 1. Problem Problem Impaired nutrient utilization Etiology r/t endocrine dysfunction Signs/Symptoms: aeb labs (07/17) glucose 179, A1c 8.8%. Malnutrition Related to Morbid Obesity Malnutrition related to morbid obesity No Intervention/Recommendation Comments 1.Continue CCHO diet as tolerated. 2.Continue antihyperglycemic medications for glucose control per MD order. Expected Outcomes/Goals Expected Outcomes/Goals 1.PO intake to meet 75% of estimated nutritional needs. 2.Monitor PO intake, wt, nutrition related labs to trend WNL, and skin integrity to trend WNL. 3.F/U as moderate risk in 3-5 days, -07/24
[2019-07-25] MEDS: Albuterol/Ipratropium Neb 3 ML AERS HHN SCH ×4 (00:35→17:39)
[2019-07-25] MEDS: INSULIN LISPRO SLIDING SCALE 100 UNITS/ML UNIT SUBQ SCH ×4 (06:39→20:19)
[2019-07-25] MEDS: Levothyroxine 0.025 Mg Tab PO SCH (06:40)
[2019-07-25] MEDS: Potassium Chloride 20 mEq ER Tab PO SCH (08:38)
[2019-07-25] MEDS: Aspirin 81mg Chewable Tab PO SCH (08:38)
[2019-07-25] MEDS: Hydrocodone/APAP 10 mg/325 mg Tab PO PRN (08:40)
[2019-07-25] MEDS: Insulin Glargine 100 units/ml 10ml Vial SUBQ SCH (20:20)
--- NOTE | 2019-07-25 20:49 | Internal Medicine Prog Note ---
Internal Medicine Subjective - Subjective Service Date: 07/25/19 (no events) Patient seen and examined:: without staff Patient is:: awake Per staff patient has:: no adverse event Internal Medicine Objective - Results Recent Labs: Laboratory Last Values POC Glucose 264 MG/DL (70 - 105) H 07/25/19 20:03 - Physical Exam Vitals and I&O: Vital Signs Temp 97.4 F 07/25/19 20:16 Pulse 88 07/25/19 20:16 Resp 20 07/25/19 20:16 BP 133/75 07/25/19 20:16 Pulse Ox 99 07/25/19 20:16 Intake & Output 07/25/19 07/25/19 07/26/19 06:59 18:59 06:59 Intake Total 240 1000 240 Balance 240 1000 240 Intake: Oral 240 1000 240 Other: # Voids 2 4 1 # Bowel Movements 0 1 Active Medications: Current Medications Acetaminophen/Hydrocodone Bitart ([place] 10 Mg/325 Mg) 1 tab PO Q4H PRN PRN Reason: Pain (Severe 7-10) Stop: 09/14/19 03:44 Last Admin: 07/25/19 08:40 Dose: 1 tab Albuterol/Ipratropium (Duoneb Neb) 3 ml HHN Q6HR [facility] Stop: 09/14/19 07:59 Last Admin: 07/25/19 17:39 Dose: Not Given Aspirin (Aspirin Chewable) 81 mg PO DAILY [facility] Stop: 09/14/19 08:59 Last Admin: 07/25/19 08:38 Dose: 81 mg Docusate Sodium (Colace) 100 mg PO BID [facility] Stop: 09/14/19 08:59 Last Admin: 07/25/19 16:52 Dose: 100 mg Duloxetine HCl (Cymbalta) 60 mg PO DAILY [facility]; Protocol Stop: 09/15/19 08:59 Last Admin: 07/25/19 08:38 Dose: 60 mg Escitalopram Oxalate (Lexapro) 10 mg PO HS [facility]; Protocol Stop: 09/17/19 20:59 Last Admin: 07/25/19 20:19 Dose: 10 mg Furosemide (Lasix) 20 mg PO DAILY [facility] Stop: 09/14/19 08:59 Last Admin: 07/25/19 08:39 Dose: 20 mg Gabapentin (Neurontin) 300 mg PO BID [facility] Stop: 09/21/19 08:59 Last Admin: 07/25/19 16:52 Dose: 300 mg Insulin Glargine (Lantus Insulin) 26 units SUBQ HS [facility] Stop: 09/14/19 20:59 Last Admin: 07/25/19 20:20 Dose: 26 unit Insulin Human Lispro (Humalog Insulin Sliding Scale) 0 units SUBQ ACHS [facility] Stop: 09/14/19 07:29 Last Admin: 07/25/19 20:19 Dose: 6 units Levothyroxine Sodium (Synthroid) 0.025 mg PO QDAC [facility] Stop: 09/14/19 08:29 Last Admin: 07/25/19 06:40 Dose: 0.025 mg Lorazepam (Ativan) 0.5 mg PO Q4HR PRN; Protocol PRN Reason: Anxiety Stop: 08/15/19 02:54 Last Admin: 07/19/19 16:34 Dose: 0.5 mg Metoprolol Succinate (Toprol Xl) 50 mg PO DAILY [facility] Stop: 09/14/19 08:59 Last Admin: 07/25/19 08:39 Dose: 50 mg Potassium Chloride (Klor-Con) 20 meq PO DAILY [facility] Stop: 09/14/19 08:59 Last Admin: 07/25/19 08:38 Dose: 20 meq Quetiapine Fumarate (Seroquel) 25 mg PO BID [facility]; Protocol Stop: 09/23/19 08:59 Last Admin: 07/25/19 16:52 Dose: 25 mg Quetiapine Fumarate (Seroquel) [address] [facility]; Protocol Stop: 09/23/19 20:59 Last Admin: 07/25/19 20:19 Dose: 100 mg Temazepam (Restoril) [address] [facility]; Protocol Stop: 09/14/19 20:59 Last Admin: 07/25/19 20:19 Dose: 15 mg Tolterodine Tartrate (Detrol) 2 mg PO BID [facility] Stop: 09/14/19 09:59 Last Admin: 07/25/19 16:52 Dose: 2 mg HEENT: NC/AT, PERRLA Neck: Supple, No LAD Lungs: CTAB Cardiovascular: RRR, Normal S1, Normal S2 Abdomen: soft, non-tender, non-distended Extremities: clear Internal Medicine Assmt/Plan - Assessment Assessment: SSESSMENT: 1. Acute psych decompensation. 2. History of schizophrenia. 3. Type 2 diabetes with diabetic neuropathy. 4. Previous history of lower extremity cellulitis. 5. History of hypothyroidism. 6. Essential hypertension. - Plan Plan: CONT WITH CURRENT TX PLAN MONITOR WITH CURRENT GLUCOMETER CHECKS Nutritional Asmnt/Malnutr-PDOC - Dietary Evaluation Malnutrition Findings (Please click <Entered> for more info): Nutritional Asmnt/Malnutrition Start: 07/19/19 15: 53 Text: Status: Complete Freq: Protocol: Document 07/19/19 15:53 [email or web address] (Rec: 07/19/19 15:56 [id number]) Nutritional Asmnt/Malnutrition Patient General Information Nutritional Screening Moderate Risk Diagnosis Psychosis Pertinent Medical Hx/Surgical Hx Schizophrenia, DM, Peripheral Neuropathy, COPD, HTN, Hypothyroidism Subjective Information Pt is a 74-year-old female admitted on 07/16 d/t aggressiveness, verbally abusive, threatening to roommate. Pt only ate 50% meals on admit date, refused meals the next day and ate 50% , 75%,75% yesterday. Visited pt in room, she stated the food was good today. She understands she has diabetes and understands her Diet Rx. Educated her on not having juice in between meals and making sure she drinks lots of water and milk at meals. Pt stated understanding. Will continue to monitor PO intake. Anthropometrics HT: 52 WT: 169 LB (76.82 kg) ABW: 125 LB (56.70 kg) BMI: 30.91 (Obese) GI/ Skin Integrity GI: WNL, Soft, Non-tender, Round, Large BM: Not Noted I/O: 1320/Not Noted Skin: Dryness, Rt lateral knee dry scab, Distal lower extremities dry scabs Castro: 16 Diet Order: [facility] Estimated Energy Needs: (Obese , ABW) 4032-9675 kcals (20-25 kcals/ kg) 45-56g Pro (0.8-1.0 g/kg) 6701-7163 ml (25-30 ml/kg) Current Diet Order/ Nutrition Support [facility] Pertinent Medications Albuterol, Colace, Lasix, Lantus, INS-SS, Synthroid, Klor-Con Pertinent Labs 07/17: Glucose 179, Alk Phos 123, Tags 205, HDL 30, A1c 8.8 % Nutritional Hx/Data Height 1.57 m Height (Calculated Centimeters) 157.5 Current Weight (lbs) 76.657 kg Weight (Calculated Kilograms) 76.7 Weight (Calculated Grams) 53350.1 [place] Body Weight 110 LB (50 kg) % [place] Body Weight 154 Body Mass Index (BMI) 30.9 Weight Status Obese GI Symptoms GI Symptoms None Last BM Not Noted Skin Integrity/Comment: Skin: Dryness, Rt lateral knee dry scab, Distal lower extremities dry scabs Castro: 16 Current %PO Fair (50-74%) Estimated Nutritional Goals BEE in Kcals: Adj wt of IBW Calories/Kcals/Kg 20-25 Kcals Calculated 8612-8692 Protein: Adj wt of IBW Protein g/k.8-1.0 Protein Calculated 45-56 Fluid: ml 6923-8974 ml (25-30 ml/kg) Nutritional Problem 2. Problem Problem Obesity Etiology r/t consistent energy overconsumption Signs/Symptoms: aeb BMI 30.91 (obese). 1. Problem Problem Impaired nutrient utilization Etiology r/t endocrine dysfunction Signs/Symptoms: aeb labs (07/17) glucose 179, A1c 8.8%. Malnutrition Related to Morbid Obesity Malnutrition related to morbid obesity No Intervention/Recommendation Comments 1.Continue CCHO diet as tolerated. 2.Continue antihyperglycemic medications for glucose control per MD order. Expected Outcomes/Goals Expected Outcomes/Goals 1.PO intake to meet 75% of estimated nutritional needs. 2.Monitor PO intake, wt, nutrition related labs to trend WNL, and skin integrity to trend WNL. 3.F/U as moderate risk in 3-5 days, -07/24
--- NOTE | 2019-07-25 22:43 | Progress Notes ---
DATE: PSYCHIATRIC PROGRESS NOTE SUBJECTIVE: Chart reviewed and the patient interviewed. Also discussed the patient's condition with the staff, and reviewed records and labs. The patient today reports auditory hallucinations and she said that she has been hearing voices, but she has not been elaborating on what the voices are telling her. The patient also is still in angry mood and she does not want to talk to me or to the nurses, and wants to be left alone. The patient also is still in an irritable mood and she is still easily agitated with episodes of screaming and yelling for no apparent reason. Also, the patient seems to be actively responding. ASSESSMENT: The patient is still psychotic and agitated. TREATMENT PLAN: It seems that the Abilify has not been helping the patient much. We will discontinue Abilify and we will start the patient on Seroquel, on a dose of 25 mg twice a day and 100 mg at bedtime, and we will continue to follow up her condition and medications closely. [facility]# [id number]
[2019-07-26] MEDS: Albuterol/Ipratropium Neb 3 ML AERS HHN SCH ×3 (00:59→12:27)
[2019-07-26] MEDS: Levothyroxine 0.025 Mg Tab PO SCH (06:32)
[2019-07-26] MEDS: INSULIN LISPRO SLIDING SCALE 100 UNITS/ML UNIT SUBQ SCH ×4 (06:33→20:30)
--- NOTE | 2019-07-26 08:18 | Progress Notes ---
DATE: SUBJECTIVE: Chart reviewed and the patient interviewed. Also discussed the patient's condition with the staff and reviewed records and labs. The patient is still easily agitated and guarded, but seems to be slightly calmer than before. She also still seems to be suspicious and is paranoid and still has difficulty controlling her mood and her temper. Otherwise, the patient is compliant with taking her medications and it seems that Seroquel has been helping the patient to slightly more than the Risperdal. ASSESSMENT: The patient is still psychotic, but less agitated. TREATMENT PLAN: We will continue to monitor her behavior and condition closely. Also, we will increase Seroquel to 37.5 mg twice a day and 125 mg at bedtime and we will continue to follow up closely and work on her ineffective coping. JOB# [id number]
[2019-07-26] MEDS: Aspirin 81mg Chewable Tab PO SCH (09:52)
[2019-07-26] MEDS: Potassium Chloride 20 mEq ER Tab PO SCH (09:52)
[2019-07-26] MEDS: Hydrocodone/APAP 10 mg/325 mg Tab PO PRN ×2 (10:06→20:56)
[2019-07-26] MEDS: Insulin Glargine 100 units/ml 10ml Vial SUBQ SCH (20:31)
--- NOTE | 2019-07-26 21:25 | Internal Medicine Prog Note ---
Internal Medicine Subjective - Subjective Service Date: 07/26/19 (NO EVENTS) Patient seen and examined:: without staff Patient is:: awake Per staff patient has:: no adverse event Internal Medicine Objective - Results Recent Labs: Laboratory Last Values POC Glucose 210 MG/DL (70 - 105) H 07/26/19 19:38 - Physical Exam Vitals and I&O: Vital Signs Temp 97.0 F 07/26/19 20:38 Pulse 87 07/26/19 20:38 Resp 19 07/26/19 20:38 BP 104/62 07/26/19 20:38 Pulse Ox 96 07/26/19 20:38 Intake & Output 07/26/19 07/26/19 07/27/19 06:59 18:59 06:59 Intake Total 240 900 120 Balance 240 900 120 Intake: Oral 240 900 120 Other: # Voids 1 3 2 # Bowel Movements 0 0 Active Medications: Current Medications Acetaminophen/Hydrocodone Bitart ([place] 10 Mg/325 Mg) 1 tab PO Q4H PRN PRN Reason: Pain (Severe 7-10) Stop: 09/14/19 03:44 Last Admin: 07/26/19 20:56 Dose: 1 tab Albuterol/Ipratropium (Duoneb Neb) 3 ml HHN Q6HR [facility] Stop: 09/14/19 07:59 Last Admin: 07/26/19 12:27 Dose: Not Given Aspirin (Aspirin Chewable) 81 mg PO DAILY [facility] Stop: 09/14/19 08:59 Last Admin: 07/26/19 09:52 Dose: 81 mg Docusate Sodium (Colace) 100 mg PO BID [facility] Stop: 09/14/19 08:59 Last Admin: 07/26/19 17:14 Dose: 100 mg Duloxetine HCl (Cymbalta) 60 mg PO DAILY [facility]; Protocol Stop: 09/15/19 08:59 Last Admin: 07/26/19 09:52 Dose: 60 mg Escitalopram Oxalate (Lexapro) 10 mg PO HS [facility]; Protocol Stop: 09/17/19 20:59 Last Admin: 07/26/19 20:29 Dose: 10 mg Furosemide (Lasix) 20 mg PO DAILY [facility] Stop: 09/14/19 08:59 Last Admin: 07/26/19 09:53 Dose: 20 mg Gabapentin (Neurontin) 300 mg PO BID [facility] Stop: 09/21/19 08:59 Last Admin: 07/26/19 17:14 Dose: 300 mg Insulin Glargine (Lantus Insulin) 26 units SUBQ HS [facility] Stop: 09/14/19 20:59 Last Admin: 07/26/19 20:31 Dose: 26 unit Insulin Human Lispro (Humalog Insulin Sliding Scale) 0 units SUBQ ACHS [facility] Stop: 09/14/19 07:29 Last Admin: 07/26/19 20:30 Dose: 4 units Levothyroxine Sodium (Synthroid) 0.025 mg PO QDAC [facility] Stop: 09/14/19 08:29 Last Admin: 07/26/19 06:32 Dose: 0.025 mg Lorazepam (Ativan) 0.5 mg PO Q4HR PRN; Protocol PRN Reason: Anxiety Stop: 08/15/19 02:54 Last Admin: 07/19/19 16:34 Dose: 0.5 mg Metoprolol Succinate (Toprol Xl) 50 mg PO DAILY [facility] Stop: 09/14/19 08:59 Last Admin: 07/26/19 09:52 Dose: 50 mg Potassium Chloride (Klor-Con) 20 meq PO DAILY [facility] Stop: 09/14/19 08:59 Last Admin: 07/26/19 09:52 Dose: 20 meq Quetiapine Fumarate (Seroquel) 37.5 mg PO BID [facility]; Protocol Stop: 09/24/19 08:59 Last Admin: 07/26/19 17:14 Dose: 37.5 mg Quetiapine Fumarate 100 mg/ (Quetiapine Fumarate 25 mg) 125 mg PO [facility] Stop: 09/24/19 20:59 Last Admin: 07/26/19 20:29 Dose: 125 mg Temazepam (Restoril) 15 mg PO HS [facility]; Protocol Stop: 09/14/19 20:59 Last Admin: 07/26/19 20:29 Dose: 15 mg Tolterodine Tartrate (Detrol) 2 mg PO BID [facility] Stop: 09/14/19 09:59 Last Admin: 07/26/19 17:14 Dose: 2 mg HEENT: NC/AT, PERRLA Neck: Supple, No LAD Lungs: CTAB Cardiovascular: RRR, Normal S1, Normal S2 Abdomen: soft, non-tender, non-distended Extremities: clear Internal Medicine Assmt/Plan - Assessment Assessment: SSESSMENT: 1. Acute psych decompensation. 2. History of schizophrenia. 3. Type 2 diabetes with diabetic neuropathy. 4. Previous history of lower extremity cellulitis. 5. History of hypothyroidism. 6. Essential hypertension. - Plan Plan: CONT WITH CURRENT TX PLAN MONITOR WITH CURRENT GLUCOMETER CHECKS Nutritional Asmnt/Malnutr-PDOC - Dietary Evaluation Malnutrition Findings (Please click <Entered> for more info): Nutritional Asmnt/Malnutrition Start: 07/19/19 15: 53 Text: Status: Complete Freq: Protocol: Document 07/19/19 15:53 QUIQUE (Rec: 07/19/19 15:56 [email or web address] [id number]) Nutritional Asmnt/Malnutrition Patient General Information Nutritional Screening Moderate Risk Diagnosis Psychosis Pertinent Medical Hx/Surgical Hx Schizophrenia, DM, Peripheral Neuropathy, COPD, HTN, Hypothyroidism Subjective Information Pt is a 74-year-old female admitted on 07/16 d/t aggressiveness, verbally abusive, threatening to roommate. Pt only ate 50% meals on admit date, refused meals the next day and ate 50% , 75%,75% yesterday. Visited pt in room, she stated the food was good today. She understands she has diabetes and understands her Diet Rx. Educated her on not having juice in between meals and making sure she drinks lots of water and milk at meals. Pt stated understanding. Will continue to monitor PO intake. Anthropometrics HT: 52 WT: 169 LB (76.82 kg) ABW: 125 LB (56.70 kg) BMI: 30.91 (Obese) GI/ Skin Integrity GI: WNL, Soft, Non-tender, Round, Large BM: Not Noted I/O: 1320/Not Noted Skin: Dryness, Rt lateral knee dry scab, Distal lower extremities dry scabs Castro: 16 [facility] Estimated Energy Needs: (Obese , ABW) 4593-7399 kcals (20-25 kcals/ kg) 45-56g Pro (0.8-1.0 g/kg) 2651-8258 ml (25-30 ml/kg) Current Diet Order/ Nutrition Support [facility] Pertinent Medications Albuterol, Colace, Lasix, Lantus, INS-SS, Synthroid, Klor-Con Pertinent Labs 07/17: Glucose 179, Alk Phos 123, Tags 205, HDL 30, A1c 8.8 % Nutritional Hx/Data Height 1.57 m Height (Calculated Centimeters) 157.5 Current Weight (lbs) 76.657 kg Weight (Calculated Kilograms) 76.7 Weight (Calculated Grams) 63413.1 [place] Body Weight 110 LB (50 kg) % [place] Body Weight 154 Body Mass Index (BMI) 30.9 Weight Status Obese GI Symptoms GI Symptoms None Last BM Not Noted Skin Integrity/Comment: Skin: Dryness, Rt lateral knee dry scab, Distal lower extremities dry scabs Castro: 16 Current %PO Fair (50-74%) Estimated Nutritional Goals BEE in Kcals: Adj wt of IBW Calories/Kcals/Kg 20-25 Kcals Calculated 8536-3746 Protein: Adj wt of IBW Protein g/k.8-1.0 Protein Calculated 45-56 Fluid: ml 6958-2961 ml (25-30 ml/kg) Nutritional Problem 2. Problem Problem Obesity Etiology r/t consistent energy overconsumption Signs/Symptoms: aeb BMI 30.91 (obese). 1. Problem Problem Impaired nutrient utilization Etiology r/t endocrine dysfunction Signs/Symptoms: aeb labs (07/17) glucose 179, A1c 8.8%. Malnutrition Related to Morbid Obesity Malnutrition related to morbid obesity No Intervention/Recommendation Comments 1.Continue CCHO diet as tolerated. 2.Continue antihyperglycemic medications for glucose control per MD order. Expected Outcomes/Goals Expected Outcomes/Goals 1.PO intake to meet 75% of estimated nutritional needs. 2.Monitor PO intake, wt, nutrition related labs to trend WNL, and skin integrity to trend WNL. 3.F/U as moderate risk in 3-5 days, -07/24
[2019-07-27] MEDS: Albuterol/Ipratropium Neb 3 ML AERS HHN SCH ×4 (00:46→17:11)
[2019-07-27] MEDS: Levothyroxine 0.025 Mg Tab PO SCH (06:41)
[2019-07-27] MEDS: INSULIN LISPRO SLIDING SCALE 100 UNITS/ML UNIT SUBQ SCH ×4 (06:45→21:24)
[2019-07-27] MEDS: Potassium Chloride 20 mEq ER Tab PO SCH (09:29)
[2019-07-27] MEDS: Aspirin 81mg Chewable Tab PO SCH (09:30)
[2019-07-27] MEDS: Hydrocodone/APAP 10 mg/325 mg Tab PO PRN ×2 (09:48→16:22)
--- NOTE | 2019-07-27 17:04 | Progress Notes ---
DATE: 07/27/2019 SUBJECTIVE: Chart was reviewed and the patient interviewed. Also discussed the patient's condition with the staff and reviewed records and labs. "I want money from the bank and I want a bra and underwear." The patient seems to be slightly confused today, but she seems to be calmer and less agitated and less paranoid. The patient also is trying to interact more. The patient is saying that she needs money, but after explaining to her that she does not need money while in the hospital. She was calm and accepted that. She also has been getting out of her room slightly more, but she still at times seems to be depressed. The patient also has been compliant with taking her medications with no side effects of medications. ASSESSMENT: The patient is still psychotic, but shows some improvement. TREATMENT PLAN: Continue to monitor behavior and condition closely. Also, continue current psychotropic medications and followup. [facility]# [id number]
[2019-07-27] MEDS: Insulin Glargine 100 units/ml 10ml Vial SUBQ SCH (21:24)
[2019-07-28] MEDS: Albuterol/Ipratropium Neb 3 ML AERS HHN SCH ×4 (00:30→18:11)
[2019-07-28] MEDS: INSULIN LISPRO SLIDING SCALE 100 UNITS/ML UNIT SUBQ SCH ×4 (06:44→21:31)
[2019-07-28] MEDS: Hydrocodone/APAP 10 mg/325 mg Tab PO PRN ×2 (06:45→23:25)
[2019-07-28] MEDS: Levothyroxine 0.025 Mg Tab PO SCH (06:45)
[2019-07-28] MEDS: Aspirin 81mg Chewable Tab PO SCH (09:11)
[2019-07-28] MEDS: Potassium Chloride 20 mEq ER Tab PO SCH (09:13)
--- NOTE | 2019-07-28 17:38 | Progress Notes ---
DATE: SUBJECTIVE: Chart was reviewed and the patient interviewed. Also discussed the patient's condition with the staff and reviewed records and labs. The patient is still paranoid. The patient also is still agitated and still has periods of irritability and anger, but seems to be less than before. The patient also is easier to redirect her. Otherwise, the patient is compliant with taking her medications and again she continues to improve with the Seroquel. ASSESSMENT: The patient is still psychotic, but less agitated. TREATMENT PLAN: Continue to monitor behavior and condition closely. Also, continue adjusting psychotropic medications and work on behavioral modification. JOB# [id number]
--- NOTE | 2019-07-28 18:18 | Internal Medicine Prog Note ---
Internal Medicine Subjective - Subjective Service Date: 07/28/19 (STATUS QUO) Patient seen and examined:: without staff Patient is:: awake Per staff patient has:: no adverse event Internal Medicine Objective - Results Recent Labs: Laboratory Last Values POC Glucose 135 MG/DL (70 - 105) H 07/28/19 11:59 - Physical Exam Vitals and I&O: Vital Signs Temp 97.6 F 07/28/19 14:00 Pulse 84 07/28/19 14:00 Resp 18 07/28/19 14:00 BP 112/59 07/28/19 14:00 Pulse Ox 100 07/28/19 14:00 Intake & Output 07/27/19 07/28/19 07/28/19 18:59 06:59 18:59 Intake Total 240 Balance 240 Intake: Oral 240 Other: # Voids 3 1 # Bowel Movements 1 Active Medications: Current Medications Acetaminophen/Hydrocodone Bitart ([place] 10 Mg/325 Mg) 1 tab PO Q4H PRN PRN Reason: Pain (Severe 7-10) Stop: 09/14/19 03:44 Last Admin: 07/28/19 06:45 Dose: 1 tab Albuterol/Ipratropium (Duoneb Neb) 3 ml HHN Q6HR [facility] Stop: 09/14/19 07:59 Last Admin: 07/28/19 18:11 Dose: Not Given Aspirin (Aspirin Chewable) 81 mg PO DAILY [facility] Stop: 09/14/19 08:59 Last Admin: 07/28/19 09:11 Dose: 81 mg Docusate Sodium (Colace) 100 mg PO BID [facility] Stop: 09/14/19 08:59 Last Admin: 07/28/19 16:14 Dose: 100 mg Duloxetine HCl (Cymbalta) 60 mg PO DAILY [facility]; Protocol Stop: 09/15/19 08:59 Last Admin: 07/28/19 09:11 Dose: 60 mg Escitalopram Oxalate (Lexapro) 10 mg PO HS [facility]; Protocol Stop: 09/17/19 20:59 Last Admin: 07/27/19 21:17 Dose: 10 mg Furosemide (Lasix) 20 mg PO DAILY [facility] Stop: 09/14/19 08:59 Last Admin: 07/28/19 09:12 Dose: 20 mg Gabapentin (Neurontin) 300 mg PO BID [facility] Stop: 09/21/19 08:59 Last Admin: 07/28/19 16:14 Dose: 300 mg Insulin Glargine (Lantus Insulin) 26 units SUBQ HS [facility] Stop: 09/14/19 20:59 Last Admin: 07/27/19 21:24 Dose: 26 unit Insulin Human Lispro (Humalog Insulin Sliding Scale) 0 units SUBQ ACHS [facility] Stop: 09/14/19 07:29 Last Admin: 07/28/19 17:04 Dose: 4 units Levothyroxine Sodium (Synthroid) 0.025 mg PO QDAC [facility] Stop: 09/14/19 08:29 Last Admin: 07/28/19 06:45 Dose: 0.025 mg Lorazepam (Ativan) 0.5 mg PO Q4HR PRN; Protocol PRN Reason: Anxiety Stop: 08/15/19 02:54 Last Admin: 07/19/19 16:34 Dose: 0.5 mg Metoprolol Succinate (Toprol Xl) 50 mg PO DAILY [facility] Stop: 09/14/19 08:59 Last Admin: 07/28/19 09:12 Dose: 50 mg Potassium Chloride (Klor-Con) 20 meq PO DAILY [facility] Stop: 09/14/19 08:59 Last Admin: 07/28/19 09:13 Dose: 20 meq Quetiapine Fumarate (Seroquel) 50 mg PO BID [facility]; Protocol Stop: 09/25/19 08:59 Last Admin: 07/28/19 16:14 Dose: 50 mg Quetiapine Fumarate (Seroquel) 150 mg PO [facility] Stop: 09/25/19 20:59 Last Admin: 07/27/19 21:18 Dose: 150 mg Temazepam (Restoril) 15 mg PO [facility]; Protocol Stop: 09/14/19 20:59 Last Admin: 07/27/19 21:18 Dose: 15 mg Tolterodine Tartrate (Detrol) 2 mg PO BID [facility] Stop: 09/14/19 09:59 Last Admin: 07/28/19 16:14 Dose: 2 mg HEENT: NC/AT, PERRLA Neck: Supple, No LAD Lungs: CTAB Cardiovascular: RRR, Normal S1, Normal S2 Abdomen: soft, non-tender, non-distended Extremities: clear Internal Medicine Assmt/Plan - Assessment Assessment: SSESSMENT: 1. Acute psych decompensation-cont with current mgt. 2. History of schizophrenia. 3. Type 2 diabetes with diabetic neuropathy. 4. Previous history of lower extremity cellulitis. 5. History of hypothyroidism. 6. Essential hypertension-stable. - Plan Plan: CONT WITH CURRENT TX PLAN MONITOR WITH CURRENT GLUCOMETER CHECKS Nutritional Asmnt/Malnutr-PDOC - Dietary Evaluation Malnutrition Findings (Please click <Entered> for more info): Nutritional Asmnt/Malnutrition Start: 07/19/19 15: 53 Text: Status: Complete Freq: Protocol: Document 07/19/19 15:53 JORDANYUSEF (Rec: 07/19/19 15:56 [email or web address] [email or web address]) Nutritional Asmnt/Malnutrition Patient General Information Nutritional Screening Moderate Risk Diagnosis Psychosis Pertinent Medical Hx/Surgical Hx Schizophrenia, DM, Peripheral Neuropathy, COPD, HTN, Hypothyroidism Subjective Information Pt is a 74-year-old female admitted on 07/16 d/t aggressiveness, verbally abusive, threatening to roommate. Pt only ate 50% meals on admit date, refused meals the next day and ate 50% , 75%,75% yesterday. Visited pt in room, she stated the food was good today. She understands she has diabetes and understands her Diet Rx. Educated her on not having juice in between meals and making sure she drinks lots of water and milk at meals. Pt stated understanding. Will continue to monitor PO intake. Anthropometrics HT: 52 WT: 169 LB (76.82 kg) ABW: 125 LB (56.70 kg) BMI: 30.91 (Obese) GI/ Skin Integrity GI: WNL, Soft, Non-tender, Round, Large BM: Not Noted I/O: 1320/Not Noted Skin: Dryness, Rt lateral knee dry scab, Distal lower extremities dry scabs Castro: 16 Diet Order: [facility] Estimated Energy Needs: (Obese , ABW) 7544-6063 kcals (20-25 kcals/ kg) 45-56g Pro (0.8-1.0 g/kg) 5276-2937 ml (25-30 ml/kg) Current Diet Order/ Nutrition Support [facility] Pertinent Medications Albuterol, Colace, Lasix, Lantus, INS-SS, Synthroid, Klor-Con Pertinent Labs 07/17: Glucose 179, Alk Phos 123, Tags 205, HDL 30, A1c 8.8 % Nutritional Hx/Data Height 1.57 m Height (Calculated Centimeters) 157.5 Current Weight (lbs) 76.657 kg Weight (Calculated Kilograms) 76.7 Weight (Calculated Grams) 58237.1 [place] Body Weight 110 LB (50 kg) % [place] Body Weight 154 Body Mass Index (BMI) 30.9 Weight Status Obese GI Symptoms GI Symptoms None Last BM Not Noted Skin Integrity/Comment: Skin: Dryness, Rt lateral knee dry scab, Distal lower extremities dry scabs Castro: 16 Current %PO Fair (50-74%) Estimated Nutritional Goals BEE in Kcals: Adj wt of IBW Calories/Kcals/Kg 20-25 Kcals Calculated 6156-2656 Protein: Adj wt of IBW Protein g/k.8-1.0 Protein Calculated 45-56 Fluid: ml 4190-7837 ml (25-30 ml/kg) Nutritional Problem 2. Problem Problem Obesity Etiology r/t consistent energy overconsumption Signs/Symptoms: aeb BMI 30.91 (obese). 1. Problem Problem Impaired nutrient utilization Etiology r/t endocrine dysfunction Signs/Symptoms: aeb labs (07/17) glucose 179, A1c 8.8%. Malnutrition Related to Morbid Obesity Malnutrition related to morbid obesity No Intervention/Recommendation Comments 1.Continue CCHO diet as tolerated. 2.Continue antihyperglycemic medications for glucose control per MD order. Expected Outcomes/Goals Expected Outcomes/Goals 1.PO intake to meet 75% of estimated nutritional needs. 2.Monitor PO intake, wt, nutrition related labs to trend WNL, and skin integrity to trend WNL. 3.F/U as moderate risk in 3-5 days, -07/24
[2019-07-28] MEDS: Insulin Glargine 100 units/ml 10ml Vial SUBQ SCH (21:30)
[2019-07-29] MEDS: Albuterol/Ipratropium Neb 3 ML AERS HHN SCH ×4 (05:51→17:43)
[2019-07-29] MEDS: INSULIN LISPRO SLIDING SCALE 100 UNITS/ML UNIT SUBQ SCH ×4 (06:52→21:32)
[2019-07-29] MEDS: Levothyroxine 0.025 Mg Tab PO SCH (06:53)
[2019-07-29] MEDS: Potassium Chloride 20 mEq ER Tab PO SCH (08:34)
[2019-07-29] MEDS: Aspirin 81mg Chewable Tab PO SCH (08:36)
--- NOTE | 2019-07-29 12:28 | Internal Medicine Prog Note ---
Internal Medicine Subjective - Subjective Service Date: 07/29/19 (comfortable) Patient is:: awake Per staff patient has:: no adverse event Internal Medicine Objective - Results Recent Labs: Laboratory Last Values POC Glucose 162 MG/DL (70 - 105) H 07/29/19 11:49 - Physical Exam Vitals and I&O: Vital Signs Temp 97.1 F 07/29/19 05:42 Pulse 100 07/29/19 08:35 Resp 18 07/29/19 05:42 BP 120/65 07/29/19 08:36 Pulse Ox 100 07/29/19 05:42 Intake & Output 07/28/19 07/29/19 07/29/19 18:59 06:59 18:59 Intake Total 900 400 Balance 900 400 Intake: Oral 900 400 Other: # Voids 2 # Bowel Movements 0 Active Medications: Current Medications Acetaminophen/Hydrocodone Bitart ([place] 10 Mg/325 Mg) 1 tab PO Q4H PRN PRN Reason: Pain (Severe 7-10) Stop: 09/14/19 03:44 Last Admin: 07/28/19 23:25 Dose: 1 tab Albuterol/Ipratropium (Duoneb Neb) 3 ml HHN Q6HR [facility] Stop: 09/14/19 07:59 Last Admin: 07/29/19 05:51 Dose: Not Given Aspirin (Aspirin Chewable) 81 mg PO DAILY [facility] Stop: 09/14/19 08:59 Last Admin: 07/29/19 08:36 Dose: 81 mg Docusate Sodium (Colace) 100 mg PO BID [facility] Stop: 09/14/19 08:59 Last Admin: 07/29/19 08:36 Dose: 100 mg Duloxetine HCl (Cymbalta) 60 mg PO DAILY [facility]; Protocol Stop: 09/15/19 08:59 Last Admin: 07/29/19 08:33 Dose: 60 mg Escitalopram Oxalate (Lexapro) 10 mg PO HS [facility]; Protocol Stop: 09/17/19 20:59 Last Admin: 07/28/19 21:30 Dose: 10 mg Furosemide (Lasix) 20 mg PO DAILY [facility] Stop: 09/14/19 08:59 Last Admin: 07/29/19 08:36 Dose: 20 mg Gabapentin (Neurontin) 300 mg PO BID [facility] Stop: 09/21/19 08:59 Last Admin: 07/29/19 08:36 Dose: 300 mg Insulin Glargine (Lantus Insulin) 26 units SUBQ HS [facility] Stop: 09/14/19 20:59 Last Admin: 07/28/19 21:30 Dose: 26 unit Insulin Human Lispro (Humalog Insulin Sliding Scale) 0 units SUBQ ACHS [facility] Stop: 09/14/19 07:29 Last Admin: 07/29/19 06:52 Dose: 6 units Levothyroxine Sodium (Synthroid) 0.025 mg PO QDAC [facility] Stop: 09/14/19 08:29 Last Admin: 07/29/19 06:53 Dose: 0.025 mg Lorazepam (Ativan) 0.5 mg PO Q4HR PRN; Protocol PRN Reason: Anxiety Stop: 08/15/19 02:54 Last Admin: 07/19/19 16:34 Dose: 0.5 mg Metoprolol Succinate (Toprol Xl) 50 mg PO DAILY [facility] Stop: 09/14/19 08:59 Last Admin: 07/29/19 08:35 Dose: 50 mg Potassium Chloride (Klor-Con) 20 meq PO DAILY [facility] Stop: 09/14/19 08:59 Last Admin: 07/29/19 08:34 Dose: 20 meq Quetiapine Fumarate (Seroquel) 50 mg PO BID [facility]; Protocol Stop: 09/25/19 08:59 Last Admin: 07/29/19 08:34 Dose: 50 mg Quetiapine Fumarate (Seroquel) 150 mg PO [facility] Stop: 09/25/19 20:59 Last Admin: 07/28/19 21:31 Dose: 150 mg Temazepam (Restoril) 15 mg PO [facility]; Protocol Stop: 09/14/19 20:59 Last Admin: 07/28/19 21:32 Dose: 15 mg Tolterodine Tartrate (Detrol) 2 mg PO BID [facility] Stop: 09/14/19 09:59 Last Admin: 07/29/19 08:36 Dose: 2 mg HEENT: NC/AT, PERRLA Neck: Supple, No LAD Lungs: CTAB Cardiovascular: RRR, Normal S1, Normal S2 Abdomen: soft, non-tender, non-distended Extremities: clear Internal Medicine Assmt/Plan - Assessment Assessment: SSESSMENT: 1. Acute psych decompensation-cont with current mgt. 2. History of schizophrenia. 3. Type 2 diabetes with diabetic neuropathy. 4. Previous history of lower extremity cellulitis. 5. History of hypothyroidism. 6. Essential hypertension-stable. - Plan Plan: CONT WITH CURRENT TX PLAN MONITOR WITH CURRENT GLUCOMETER CHECKS Nutritional Asmnt/Malnutr-PDOC - Dietary Evaluation Malnutrition Findings (Please click <Entered> for more info): Nutritional Asmnt/Malnutrition Start: 07/19/19 15: 53 Text: Status: Complete Freq: Protocol: Document 07/19/19 15:53 QUIQUE (Rec: 07/19/19 15:56 [email or web address] [email or web address]) Nutritional Asmnt/Malnutrition Patient General Information Nutritional Screening Moderate Risk Diagnosis Psychosis Pertinent Medical Hx/Surgical Hx Schizophrenia, DM, Peripheral Neuropathy, COPD, HTN, Hypothyroidism Subjective Information Pt is a 74-year-old female admitted on 07/16 d/t aggressiveness, verbally abusive, threatening to roommate. Pt only ate 50% meals on admit date, refused meals the next day and ate 50% , 75%,75% yesterday. Visited pt in room, she stated the food was good today. She understands she has diabetes and understands her Diet Rx. Educated her on not having juice in between meals and making sure she drinks lots of water and milk at meals. Pt stated understanding. Will continue to monitor PO intake. Anthropometrics HT: 52 WT: 169 LB (76.82 kg) ABW: 125 LB (56.70 kg) BMI: 30.91 (Obese) GI/ Skin Integrity GI: WNL, Soft, Non-tender, Round, Large BM: Not Noted I/O: 1320/Not Noted Skin: Dryness, Rt lateral knee dry scab, Distal lower extremities dry scabs Castro: 16 [facility] Estimated Energy Needs: (Obese , ABW) 9265-2506 kcals (20-25 kcals/ kg) 45-56g Pro (0.8-1.0 g/kg) 6901-0762 ml (25-30 ml/kg) Current Diet Order/ Nutrition Support [facility] Pertinent Medications Albuterol, Colace, Lasix, Lantus, INS-SS, Synthroid, Klor-Con Pertinent Labs 07/17: Glucose 179, Alk Phos 123, Tags 205, HDL 30, A1c 8.8 % Nutritional Hx/Data Height 1.57 m Height (Calculated Centimeters) 157.5 Current Weight (lbs) 76.657 kg Weight (Calculated Kilograms) 76.7 Weight (Calculated Grams) 52450.1 [place] Body Weight 110 LB (50 kg) % [place] Body Weight 154 Body Mass Index (BMI) 30.9 Weight Status Obese GI Symptoms GI Symptoms None Last BM Not Noted Skin Integrity/Comment: Skin: Dryness, Rt lateral knee dry scab, Distal lower extremities dry scabs Castro: 16 Current %PO Fair (50-74%) Estimated Nutritional Goals BEE in Kcals: Adj wt of IBW Calories/Kcals/Kg 20-25 Kcals Calculated 8993-0772 Protein: Adj wt of IBW Protein g/k.8-1.0 Protein Calculated 45-56 Fluid: ml 7462-6244 ml (25-30 ml/kg) Nutritional Problem 2. Problem Problem Obesity Etiology r/t consistent energy overconsumption Signs/Symptoms: aeb BMI 30.91 (obese). 1. Problem Problem Impaired nutrient utilization Etiology r/t endocrine dysfunction Signs/Symptoms: aeb labs (07/17) glucose 179, A1c 8.8%. Malnutrition Related to Morbid Obesity Malnutrition related to morbid obesity No Intervention/Recommendation Comments 1.Continue CCHO diet as tolerated. 2.Continue antihyperglycemic medications for glucose control per MD order. Expected Outcomes/Goals Expected Outcomes/Goals 1.PO intake to meet 75% of estimated nutritional needs. 2.Monitor PO intake, wt, nutrition related labs to trend WNL, and skin integrity to trend WNL. 3.F/U as moderate risk in 3-5 days, -07/24
[2019-07-29] MEDS: Insulin Glargine 100 units/ml 10ml Vial SUBQ SCH (21:31)
[2019-07-29] MEDS: Hydrocodone/APAP 10 mg/325 mg Tab PO PRN (23:32)
[2019-07-30] MEDS: Albuterol/Ipratropium Neb 3 ML AERS HHN SCH ×4 (00:08→17:44)
--- NOTE | 2019-07-30 01:32 | Progress Notes ---
DATE: SUBJECTIVE: Chart was reviewed and the patient interviewed. Also discussed the patient's condition with the staff and reviewed records and labs. The patient is still forgetful and confused. She also is still paranoid, but seems to be slightly less than before. Also, her irritability and anger seems to be less. She mumbles to herself and she still has difficulty expressing her needs. Otherwise, the patient continued to comply with taking Seroquel with no side effects. ASSESSMENT: The patient is still paranoid, but less agitated. TREATMENT PLAN: Continue to monitor behavior and condition closely. Also, continue adjusting psychotropic medications and work on discharge plans. JOB# [id number]
[2019-07-30] MEDS: INSULIN LISPRO SLIDING SCALE 100 UNITS/ML UNIT SUBQ SCH ×4 (06:56→20:22)
[2019-07-30] MEDS: Levothyroxine 0.025 Mg Tab PO SCH (06:56)
[2019-07-30] MEDS: Aspirin 81mg Chewable Tab PO SCH (08:14)
[2019-07-30] MEDS: Potassium Chloride 20 mEq ER Tab PO SCH (08:14)
--- NOTE | 2019-07-30 18:39 | Progress Notes ---
DATE: 07/30/2019 SUBJECTIVE: Chart was reviewed and the patient interviewed. Also discussed the patient's condition with the staff and reviewed records and labs. The patient continued to be in a depressed mood and she is still easily agitated and easily irritable. The patient also is interacting minimally with others. The patient also still seems to be preoccupied. She also is at times calling people's names and making mean faces to other patients. Otherwise, the patient is compliant with taking her medications with no side effects of Cymbalta, Neurontin, Seroquel, or Lexapro. ASSESSMENT: The patient is still agitated and psychotic. TREATMENT PLAN: Continue to monitor behavior and condition closely. Also, continue adjusting psychotropic medications and work on behavioral modifications. JOB# [id number]
[2019-07-30] MEDS: Insulin Glargine 100 units/ml 10ml Vial SUBQ SCH (20:23)
[2019-07-30] MEDS: Hydrocodone/APAP 10 mg/325 mg Tab PO PRN (20:36)
[2019-07-31] MEDS: Albuterol/Ipratropium Neb 3 ML AERS HHN SCH ×4 (00:02→17:11)
[2019-07-31] MEDS: INSULIN LISPRO SLIDING SCALE 100 UNITS/ML UNIT SUBQ SCH ×4 (06:36→20:32)
[2019-07-31] MEDS: Levothyroxine 0.025 Mg Tab PO SCH (06:36)
[2019-07-31] MEDS: Aspirin 81mg Chewable Tab PO SCH (08:19)
[2019-07-31] MEDS: Potassium Chloride 20 mEq ER Tab PO SCH (08:22)
--- NOTE | 2019-07-31 13:49 | Internal Medicine Prog Note ---
Internal Medicine Subjective - Subjective Service Date: 07/31/19 (no events) Patient seen and examined:: without staff Patient is:: awake Per staff patient has:: no adverse event Internal Medicine Objective - Results Recent Labs: Laboratory Last Values POC Glucose 286 MG/DL (70 - 105) H 07/31/19 11:38 - Physical Exam Vitals and I&O: Vital Signs Temp 98.9 F 07/31/19 06:28 Pulse 85 07/31/19 08:22 Resp 18 07/31/19 08:00 BP 131/59 07/31/19 08:22 Pulse Ox 98 07/31/19 06:28 Intake & Output 07/30/19 07/31/19 07/31/19 18:59 06:59 18:59 Intake Total 900 360 Balance 900 360 Intake: Oral 900 360 Other: # Voids 3 2 # Bowel Movements 1 Active Medications: Current Medications Acetaminophen/Hydrocodone Bitart ([place] 10 Mg/325 Mg) 1 tab PO Q4H PRN PRN Reason: Pain (Severe 7-10) Stop: 09/14/19 03:44 Last Admin: 07/30/19 20:36 Dose: 1 tab Albuterol/Ipratropium (Duoneb Neb) 3 ml HHN Q6HR [facility] Stop: 09/14/19 07:59 Last Admin: 07/31/19 11:48 Dose: Not Given Aspirin (Aspirin Chewable) 81 mg PO DAILY [facility] Stop: 09/14/19 08:59 Last Admin: 07/31/19 08:19 Dose: 81 mg Docusate Sodium (Colace) 100 mg PO BID [facility] Stop: 09/14/19 08:59 Last Admin: 07/31/19 08:20 Dose: 100 mg Duloxetine HCl (Cymbalta) 60 mg PO DAILY [facility]; Protocol Stop: 09/15/19 08:59 Last Admin: 07/31/19 08:20 Dose: 60 mg Escitalopram Oxalate (Lexapro) 10 mg PO HS [facility]; Protocol Stop: 09/17/19 20:59 Last Admin: 07/30/19 20:23 Dose: 10 mg Furosemide (Lasix) 20 mg PO DAILY [facility] Stop: 09/14/19 08:59 Last Admin: 07/31/19 08:21 Dose: 20 mg Gabapentin (Neurontin) 300 mg PO BID [facility] Stop: 09/21/19 08:59 Last Admin: 07/31/19 08:22 Dose: 300 mg Insulin Glargine (Lantus Insulin) 26 units SUBQ HS [facility] Stop: 09/14/19 20:59 Last Admin: 07/30/19 20:23 Dose: 26 unit Insulin Human Lispro (Humalog Insulin Sliding Scale) 0 units SUBQ ACHS [facility] Stop: 09/14/19 07:29 Last Admin: 07/31/19 11:58 Dose: 6 units Levothyroxine Sodium (Synthroid) 0.025 mg PO QDAC [facility] Stop: 09/14/19 08:29 Last Admin: 07/31/19 06:36 Dose: 0.025 mg Lorazepam (Ativan) 0.5 mg PO Q4HR PRN; Protocol PRN Reason: Anxiety Stop: 08/15/19 02:54 Last Admin: 07/19/19 16:34 Dose: 0.5 mg Metoprolol Succinate (Toprol Xl) 50 mg PO DAILY [facility] Stop: 09/14/19 08:59 Last Admin: 07/31/19 08:22 Dose: 50 mg Potassium Chloride (Klor-Con) 20 meq PO DAILY [facility] Stop: 09/14/19 08:59 Last Admin: 07/31/19 08:22 Dose: 20 meq Quetiapine Fumarate (Seroquel) 50 mg PO BID [facility]; Protocol Stop: 09/25/19 16:59 Last Admin: 07/31/19 08:23 Dose: 50 mg Quetiapine Fumarate (Seroquel) 200 mg PO [facility] Stop: 09/29/19 20:59 Temazepam (Restoril) 15 mg PO HS [facility]; Protocol Stop: 09/14/19 20:59 Last Admin: 07/30/19 20:23 Dose: 15 mg Tolterodine Tartrate (Detrol) 2 mg PO BID [facility] Stop: 09/14/19 09:59 Last Admin: 07/31/19 08:24 Dose: 2 mg HEENT: NC/AT, PERRLA Neck: Supple, No LAD Lungs: CTAB Cardiovascular: RRR, Normal S1, Normal S2 Abdomen: soft, non-tender, non-distended Extremities: clear Internal Medicine Assmt/Plan - Assessment Assessment: SSESSMENT: 1. Acute psych decompensation-cont with current mgt. 2. History of schizophrenia. 3. Type 2 diabetes with diabetic neuropathy. 4. Previous history of lower extremity cellulitis. 5. History of hypothyroidism. 6. Essential hypertension-stable. - Plan Plan: CONT WITH CURRENT TX PLAN MONITOR WITH CURRENT GLUCOMETER CHECKS Nutritional Asmnt/Malnutr-PDOC - Dietary Evaluation Malnutrition Findings (Please click <Entered> for more info): Nutritional Asmnt/Malnutrition Start: 07/19/19 15: 53 Text: Status: Complete Freq: Protocol: Document 07/19/19 15:53 QUIQUE (Rec: 07/19/19 15:56 [email or web address] [email or web address]) Nutritional Asmnt/Malnutrition Patient General Information Nutritional Screening Moderate Risk Diagnosis Psychosis Pertinent Medical Hx/Surgical Hx Schizophrenia, DM, Peripheral Neuropathy, COPD, HTN, Hypothyroidism Subjective Information Pt is a 74-year-old female admitted on 07/16 d/t aggressiveness, verbally abusive, threatening to roommate. Pt only ate 50% meals on admit date, refused meals the next day and ate 50% , 75%,75% yesterday. Visited pt in room, she stated the food was good today. She understands she has diabetes and understands her Diet Rx. Educated her on not having juice in between meals and making sure she drinks lots of water and milk at meals. Pt stated understanding. Will continue to monitor PO intake. Anthropometrics HT: 52 WT: 169 LB (76.82 kg) ABW: 125 LB (56.70 kg) BMI: 30.91 (Obese) GI/ Skin Integrity GI: WNL, Soft, Non-tender, Round, Large BM: Not Noted I/O: 1320/Not Noted Skin: Dryness, Rt lateral knee dry scab, Distal lower extremities dry scabs Castro: 16 [facility] Estimated Energy Needs: (Obese , ABW) 6866-3403 kcals (20-25 kcals/ kg) 45-56g Pro (0.8-1.0 g/kg) 7203-4042 ml (25-30 ml/kg) Current Diet Order/ Nutrition Support [facility] Pertinent Medications Albuterol, Colace, Lasix, Lantus, INS-SS, Synthroid, Klor-Con Pertinent Labs 07/17: Glucose 179, Alk Phos 123, Tags 205, HDL 30, A1c 8.8 % Nutritional Hx/Data Height 1.57 m Height (Calculated Centimeters) 157.5 Current Weight (lbs) 76.657 kg Weight (Calculated Kilograms) 76.7 Weight (Calculated Grams) 29535.1 [place] Body Weight 110 LB (50 kg) % [place] Body Weight 154 Body Mass Index (BMI) 30.9 Weight Status Obese GI Symptoms GI Symptoms None Last BM Not Noted Skin Integrity/Comment: Skin: Dryness, Rt lateral knee dry scab, Distal lower extremities dry scabs Castro: 16 Current %PO Fair (50-74%) Estimated Nutritional Goals BEE in Kcals: Adj wt of IBW Calories/Kcals/Kg 20-25 Kcals Calculated 6769-7342 Protein: Adj wt of IBW Protein g/k.8-1.0 Protein Calculated 45-56 Fluid: ml 2236-3388 ml (25-30 ml/kg) Nutritional Problem 2. Problem Problem Obesity Etiology r/t consistent energy overconsumption Signs/Symptoms: aeb BMI 30.91 (obese). 1. Problem Problem Impaired nutrient utilization Etiology r/t endocrine dysfunction Signs/Symptoms: aeb labs (07/17) glucose 179, A1c 8.8%. Malnutrition Related to Morbid Obesity Malnutrition related to morbid obesity No Intervention/Recommendation Comments 1.Continue CCHO diet as tolerated. 2.Continue antihyperglycemic medications for glucose control per MD order. Expected Outcomes/Goals Expected Outcomes/Goals 1.PO intake to meet 75% of estimated nutritional needs. 2.Monitor PO intake, wt, nutrition related labs to trend WNL, and skin integrity to trend WNL. 3.F/U as moderate risk in 3-5 days, -07/24
[2019-07-31] MEDS: Insulin Glargine 100 units/ml 10ml Vial SUBQ SCH (20:31)
[2019-08-01] MEDS: Albuterol/Ipratropium Neb 3 ML AERS HHN SCH ×4 (00:10→17:30)
[2019-08-01] MEDS: INSULIN LISPRO SLIDING SCALE 100 UNITS/ML UNIT SUBQ SCH ×4 (06:35→21:34)
[2019-08-01] MEDS: Levothyroxine 0.025 Mg Tab PO SCH (06:35)
[2019-08-01] MEDS: Aspirin 81mg Chewable Tab PO SCH (08:39)
[2019-08-01] MEDS: Potassium Chloride 20 mEq ER Tab PO SCH (08:40)
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
--- NOTE | 2019-08-01 10:13 | Progress Notes ---
DATE: SUBJECTIVE: Chart was reviewed and the patient interviewed. Also discussed the patient's condition with the staff and reviewed records and labs. The patient is still anxious and is still having labile affect and unpredictable behavior. The patient also still mumbles to herself. She also is still having episodes of irritability and agitation. Otherwise, the patient is compliant with taking her medications with no side effects of medications. ASSESSMENT: The patient is still psychotic and still needs redirections and also working on placement. TREATMENT PLAN: We will continue monitoring her behavior and her condition closely. Also, we will increase Seroquel to 50 mg twice a day and 200 mg at bedtime and continue to work on her discharge plans and placement issue as well as working on behavioral modification. JOB# [id number]
--- NOTE | 2019-08-01 21:20 | Internal Medicine Prog Note ---
Internal Medicine Subjective - Subjective Service Date: 08/01/19 (no events) Patient seen and examined:: without staff Patient is:: awake Per staff patient has:: no adverse event Internal Medicine Objective - Results Recent Labs: Laboratory Last Values POC Glucose 254 MG/DL (70 - 105) H 08/01/19 20:57 - Physical Exam Vitals and I&O: Vital Signs Temp 98.0 F 08/01/19 14:00 Pulse 92 08/01/19 14:00 Resp 20 08/01/19 14:00 BP 125/71 08/01/19 14:00 Pulse Ox 97 08/01/19 14:00 Intake & Output 08/01/19 08/01/19 08/02/19 06:59 18:59 06:59 Intake Total 120 1200 Balance 120 1200 Intake: Oral 120 1200 Other: # Voids 2 # Bowel Movements 1 1 Active Medications: Current Medications Acetaminophen (Tylenol) 650 mg PO Q4HR PRN PRN Reason: Pain or Fever >101 Stop: 09/30/19 20:58 Acetaminophen/Hydrocodone Bitart ([place] 10 Mg/325 Mg) 1 tab PO Q4H PRN PRN Reason: Pain (Severe 7-10) Stop: 09/14/19 03:44 Last Admin: 07/30/19 20:36 Dose: 1 tab Albuterol/Ipratropium (Duoneb Neb) 3 ml HHN Q6HR [facility] Stop: 09/14/19 07:59 Last Admin: 08/01/19 17:30 Dose: Not Given Aspirin (Aspirin Chewable) 81 mg PO DAILY [facility] Stop: 09/14/19 08:59 Last Admin: 08/01/19 08:39 Dose: 81 mg Docusate Sodium (Colace) 100 mg PO BID [facility] Stop: 09/14/19 08:59 Last Admin: 08/01/19 17:31 Dose: 100 mg Duloxetine HCl (Cymbalta) 60 mg PO DAILY [facility]; Protocol Stop: 09/15/19 08:59 Last Admin: 08/01/19 08:39 Dose: 60 mg Escitalopram Oxalate (Lexapro) 10 mg PO HS [facility]; Protocol Stop: 09/17/19 20:59 Last Admin: 07/31/19 20:31 Dose: 10 mg Furosemide (Lasix) 20 mg PO DAILY [facility] Stop: 09/14/19 08:59 Last Admin: 08/01/19 08:39 Dose: 20 mg Gabapentin (Neurontin) 300 mg PO BID [facility] Stop: 09/21/19 08:59 Last Admin: 08/01/19 17:31 Dose: 300 mg Insulin Glargine (Lantus Insulin) 26 units SUBQ HS [facility] Stop: 09/14/19 20:59 Last Admin: 07/31/19 20:31 Dose: 26 unit Insulin Human Lispro (Humalog Insulin Sliding Scale) 0 units SUBQ ACHS [facility] Stop: 09/14/19 07:29 Last Admin: 08/01/19 17:20 Dose: 4 units Levothyroxine Sodium (Synthroid) 0.025 mg PO QDAC [facility] Stop: 09/14/19 08:29 Last Admin: 08/01/19 06:35 Dose: 0.025 mg Lorazepam (Ativan) 0.5 mg PO Q4HR PRN; Protocol PRN Reason: Anxiety Stop: 08/15/19 02:54 Last Admin: 07/19/19 16:34 Dose: 0.5 mg Metoprolol Succinate (Toprol Xl) 50 mg PO DAILY [facility] Stop: 09/14/19 08:59 Last Admin: 08/01/19 08:40 Dose: 50 mg Potassium Chloride (Klor-Con) 20 meq PO DAILY [facility] Stop: 09/14/19 08:59 Last Admin: 08/01/19 08:40 Dose: 20 meq Quetiapine Fumarate (Seroquel) 200 mg PO [facility] Stop: 09/29/19 20:59 Last Admin: 07/31/19 20:32 Dose: 200 mg Quetiapine Fumarate 50 mg/ (Quetiapine Fumarate 25 mg) 75 mg PO BID [facility] Stop: 09/30/19 08:59 Last Admin: 08/01/19 17:32 Dose: 75 mg Temazepam (Restoril) 15 mg PO HS [facility]; Protocol Stop: 09/14/19 20:59 Last Admin: 07/31/19 20:32 Dose: 15 mg Tolterodine Tartrate (Detrol) 2 mg PO BID [facility] Stop: 09/14/19 09:59 Last Admin: 08/01/19 17:32 Dose: 2 mg HEENT: NC/AT, PERRLA Neck: Supple, No LAD Lungs: CTAB Cardiovascular: RRR, Normal S1, Normal S2 Abdomen: soft, non-tender, non-distended Extremities: clear Internal Medicine Assmt/Plan - Assessment Assessment: SSESSMENT: 1. Acute psych decompensation-cont with current mgt. 2. History of schizophrenia. 3. Type 2 diabetes with diabetic neuropathy. 4. Previous history of lower extremity cellulitis. 5. History of hypothyroidism. 6. Essential hypertension-stable. - Plan Plan: CONT WITH CURRENT TX PLAN MONITOR WITH CURRENT GLUCOMETER CHECKS Nutritional Asmnt/Malnutr-PDOC - Dietary Evaluation Malnutrition Findings (Please click <Entered> for more info): Nutritional Asmnt/Malnutrition Start: 07/19/19 15: 53 Text: Status: Complete Freq: Protocol: Document 07/19/19 15:53 QUIQUE (Rec: 07/19/19 15:56 QUIQUE [id number]) Nutritional Asmnt/Malnutrition Patient General Information Nutritional Screening Moderate Risk Diagnosis Psychosis Pertinent Medical Hx/Surgical Hx Schizophrenia, DM, Peripheral Neuropathy, COPD, HTN, Hypothyroidism Subjective Information Pt is a 74-year-old female admitted on 07/16 d/t aggressiveness, verbally abusive, threatening to roommate. Pt only ate 50% meals on admit date, refused meals the next day and ate 50% , 75%,75% yesterday. Visited pt in room, she stated the food was good today. She understands she has diabetes and understands her Diet Rx. Educated her on not having juice in between meals and making sure she drinks lots of water and milk at meals. Pt stated understanding. Will continue to monitor PO intake. Anthropometrics HT: 52 WT: 169 LB (76.82 kg) ABW: 125 LB (56.70 kg) BMI: 30.91 (Obese) GI/ Skin Integrity GI: WNL, Soft, Non-tender, Round, Large BM: Not Noted I/O: 1320/Not Noted Skin: Dryness, Rt lateral knee dry scab, Distal lower extremities dry scabs Castro: 16 Diet Order: [facility] Estimated Energy Needs: (Obese , ABW) 7274-6909 kcals (20-25 kcals/ kg) 45-56g Pro (0.8-1.0 g/kg) 9755-4732 ml (25-30 ml/kg) Current Diet Order/ Nutrition Support [facility] Pertinent Medications Albuterol, Colace, Lasix, Lantus, INS-SS, Synthroid, Klor-Con Pertinent Labs 07/17: Glucose 179, Alk Phos 123, Tags 205, HDL 30, A1c 8.8 % Nutritional Hx/Data Height 1.57 m Height (Calculated Centimeters) 157.5 Current Weight (lbs) 76.657 kg Weight (Calculated Kilograms) 76.7 Weight (Calculated Grams) 14783.1 [place] Body Weight 110 LB (50 kg) % [place] Body Weight 154 Body Mass Index (BMI) 30.9 Weight Status Obese GI Symptoms GI Symptoms None Last BM Not Noted Skin Integrity/Comment: Skin: Dryness, Rt lateral knee dry scab, Distal lower extremities dry scabs Castro: 16 Current %PO Fair (50-74%) Estimated Nutritional Goals BEE in Kcals: Adj wt of IBW Calories/Kcals/Kg 20-25 Kcals Calculated 3678-4729 Protein: Adj wt of IBW Protein g/k.8-1.0 Protein Calculated 45-56 Fluid: ml 6075-7934 ml (25-30 ml/kg) Nutritional Problem 2. Problem Problem Obesity Etiology r/t consistent energy overconsumption Signs/Symptoms: aeb BMI 30.91 (obese). 1. Problem Problem Impaired nutrient utilization Etiology r/t endocrine dysfunction Signs/Symptoms: aeb labs (07/17) glucose 179, A1c 8.8%. Malnutrition Related to Morbid Obesity Malnutrition related to morbid obesity No Intervention/Recommendation Comments 1.Continue [facility]CHO diet as tolerated. 2.Continue antihyperglycemic medications for glucose control per MD order. Expected Outcomes/Goals Expected Outcomes/Goals 1.PO intake to meet 75% of estimated nutritional needs. 2.Monitor PO intake, wt, nutrition related labs to trend WNL, and skin integrity to trend WNL. 3.F/U as moderate risk in 3-5 days, -07/24
[2019-08-01] MEDS: Hydrocodone/APAP 10 mg/325 mg Tab PO PRN (21:31)
[2019-08-01] MEDS: Insulin Glargine 100 units/ml 10ml Vial SUBQ SCH (21:33)
[2019-08-02] MEDS: Albuterol/Ipratropium Neb 3 ML AERS HHN SCH ×4 (00:32→18:11)
[2019-08-02] MEDS: Levothyroxine 0.025 Mg Tab PO SCH (06:48)
[2019-08-02] MEDS: INSULIN LISPRO SLIDING SCALE 100 UNITS/ML UNIT SUBQ SCH ×4 (06:49→20:43)
[2019-08-02] MEDS: Hydrocodone/APAP 10 mg/325 mg Tab PO PRN ×2 (06:57→20:36)
[2019-08-02] MEDS: Aspirin 81mg Chewable Tab PO SCH (08:12)
[2019-08-02] MEDS: Potassium Chloride 20 mEq ER Tab PO SCH (08:12)
--- NOTE | 2019-08-02 15:34 | Internal Medicine Prog Note ---
Internal Medicine Subjective - Subjective Service Date: 08/02/19 (no events) Patient seen and examined:: without staff Patient is:: awake Per staff patient has:: no adverse event Internal Medicine Objective - Results Recent Labs: Laboratory Last Values POC Glucose 155 MG/DL (70 - 105) H 08/02/19 11:17 - Physical Exam Vitals and I&O: Vital Signs Temp 97.9 F 08/02/19 14:00 Pulse 83 08/02/19 14:00 Resp 18 08/02/19 14:00 BP 120/66 08/02/19 14:00 Pulse Ox 98 08/02/19 14:00 Intake & Output 08/01/19 08/02/19 08/02/19 18:59 06:59 18:59 Intake Total 1200 120 Balance 1200 120 Intake: Oral 1200 120 Other: # Voids 3 # Bowel Movements 1 Active Medications: Current Medications Acetaminophen (Tylenol) 650 mg PO Q4HR PRN PRN Reason: Pain or Fever >101 Stop: 09/30/19 20:58 Acetaminophen/Hydrocodone Bitart ([place] 10 Mg/325 Mg) 1 tab PO Q4H PRN PRN Reason: Pain (Severe 7-10) Stop: 09/14/19 03:44 Last Admin: 08/02/19 06:57 Dose: 1 tab Albuterol/Ipratropium (Duoneb Neb) 3 ml HHN Q6HR [facility] Stop: 09/14/19 07:59 Last Admin: 08/02/19 06:42 Dose: Not Given Aspirin (Aspirin Chewable) 81 mg PO DAILY [facility] Stop: 09/14/19 08:59 Last Admin: 08/02/19 08:12 Dose: 81 mg Docusate Sodium (Colace) 100 mg PO BID [facility] Stop: 09/14/19 08:59 Last Admin: 08/02/19 08:12 Dose: 100 mg Duloxetine HCl (Cymbalta) 60 mg PO DAILY [facility]; Protocol Stop: 09/15/19 08:59 Last Admin: 08/02/19 08:13 Dose: 60 mg Escitalopram Oxalate (Lexapro) 10 mg PO HS [facility]; Protocol Stop: 09/17/19 20:59 Last Admin: 08/01/19 21:32 Dose: 10 mg Furosemide (Lasix) 20 mg PO DAILY [facility] Stop: 09/14/19 08:59 Last Admin: 08/02/19 08:13 Dose: 20 mg Gabapentin (Neurontin) 300 mg PO BID [facility] Stop: 09/21/19 08:59 Last Admin: 08/02/19 08:12 Dose: 300 mg Insulin Glargine (Lantus Insulin) 26 units SUBQ HS [facility] Stop: 09/14/19 20:59 Last Admin: 08/01/19 21:33 Dose: 26 unit Insulin Human Lispro (Humalog Insulin Sliding Scale) 0 units SUBQ ACHS [facility] Stop: 09/14/19 07:29 Last Admin: 08/02/19 11:32 Dose: 2 units Levothyroxine Sodium (Synthroid) 0.025 mg PO QDAC [facility] Stop: 09/14/19 08:29 Last Admin: 08/02/19 06:48 Dose: 0.025 mg Lorazepam (Ativan) 0.5 mg PO Q4HR PRN; Protocol PRN Reason: Anxiety Stop: 08/15/19 02:54 Last Admin: 07/19/19 16:34 Dose: 0.5 mg Metoprolol Succinate (Toprol Xl) 50 mg PO DAILY [facility] Stop: 09/14/19 08:59 Last Admin: 08/02/19 08:14 Dose: 50 mg Potassium Chloride (Klor-Con) 20 meq PO DAILY [facility] Stop: 09/14/19 08:59 Last Admin: 08/02/19 08:12 Dose: 20 meq Quetiapine Fumarate (Seroquel) 200 mg PO [facility] Stop: 09/29/19 20:59 Last Admin: 08/01/19 21:32 Dose: 200 mg Quetiapine Fumarate (Seroquel) 100 mg PO BID [facility] Stop: 10/01/19 08:59 Last Admin: 08/02/19 08:13 Dose: 100 mg Temazepam (Restoril) 15 mg PO HS [facility]; Protocol Stop: 09/14/19 20:59 Last Admin: 08/01/19 21:32 Dose: 15 mg Tolterodine Tartrate (Detrol) 2 mg PO BID [facility] Stop: 09/14/19 09:59 Last Admin: 08/02/19 08:12 Dose: 2 mg HEENT: NC/AT, PERRLA Neck: Supple, No LAD Lungs: CTAB Cardiovascular: RRR, Normal S1, Normal S2 Abdomen: soft, non-tender, non-distended Extremities: clear Internal Medicine Assmt/Plan - Assessment Assessment: SSESSMENT: 1. Acute psych decompensation-cont with current mgt. 2. History of schizophrenia. 3. Type 2 diabetes with diabetic neuropathy. 4. Previous history of lower extremity cellulitis. 5. History of hypothyroidism. 6. Essential hypertension-stable. - Plan Plan: CONT WITH CURRENT TX PLAN MONITOR WITH CURRENT GLUCOMETER CHECKS Nutritional Asmnt/Malnutr-PDOC - Dietary Evaluation Malnutrition Findings (Please click <Entered> for more info): Nutritional Asmnt/Malnutrition Start: 07/19/19 15: 53 Text: Status: Complete Freq: Protocol: Document 07/19/19 15:53 QUIQUE (Rec: 07/19/19 15:56 QUIQUE [id number]) Nutritional Asmnt/Malnutrition Patient General Information Nutritional Screening Moderate Risk Diagnosis Psychosis Pertinent Medical Hx/Surgical Hx Schizophrenia, DM, Peripheral Neuropathy, COPD, HTN, Hypothyroidism Subjective Information Pt is a 74-year-old female admitted on 07/16 d/t aggressiveness, verbally abusive, threatening to roommate. Pt only ate 50% meals on admit date, refused meals the next day and ate 50% , 75%,75% yesterday. Visited pt in room, she stated the food was good today. She understands she has diabetes and understands her Diet Rx. Educated her on not having juice in between meals and making sure she drinks lots of water and milk at meals. Pt stated understanding. Will continue to monitor PO intake. Anthropometrics HT: 52 WT: 169 LB (76.82 kg) ABW: 125 LB (56.70 kg) BMI: 30.91 (Obese) GI/ Skin Integrity GI: WNL, Soft, Non-tender, Round, Large BM: Not Noted I/O: 1320/Not Noted Skin: Dryness, Rt lateral knee dry scab, Distal lower extremities dry scabs Castro: 16 [facility] Estimated Energy Needs: (Obese , ABW) 9143-9493 kcals (20-25 kcals/ kg) 45-56g Pro (0.8-1.0 g/kg) 2246-0628 ml (25-30 ml/kg) Current Diet Order/ Nutrition Support [facility] Pertinent Medications Albuterol, Colace, Lasix, Lantus, INS-SS, Synthroid, Klor-Con Pertinent Labs 07/17: Glucose 179, Alk Phos 123, Tags 205, HDL 30, A1c 8.8 % Nutritional Hx/Data Height 1.57 m Height (Calculated Centimeters) 157.5 Current Weight (lbs) 76.657 kg Weight (Calculated Kilograms) 76.7 Weight (Calculated Grams) 47421.1 [place] Body Weight 110 LB (50 kg) % [place] Body Weight 154 Body Mass Index (BMI) 30.9 Weight Status Obese GI Symptoms GI Symptoms None Last BM Not Noted Skin Integrity/Comment: Skin: Dryness, Rt lateral knee dry scab, Distal lower extremities dry scabs Castro: 16 Current %PO Fair (50-74%) Estimated Nutritional Goals BEE in Kcals: Adj wt of IBW Calories/Kcals/Kg 20-25 Kcals Calculated 9623-2254 Protein: Adj wt of IBW Protein g/k.8-1.0 Protein Calculated 45-56 Fluid: ml 6103-8513 ml (25-30 ml/kg) Nutritional Problem 2. Problem Problem Obesity Etiology r/t consistent energy overconsumption Signs/Symptoms: aeb BMI 30.91 (obese). 1. Problem Problem Impaired nutrient utilization Etiology r/t endocrine dysfunction Signs/Symptoms: aeb labs (07/17) glucose 179, A1c 8.8%. Malnutrition Related to Morbid Obesity Malnutrition related to morbid obesity No Intervention/Recommendation Comments 1.Continue [facility] diet as tolerated. 2.Continue antihyperglycemic medications for glucose control per MD order. Expected Outcomes/Goals Expected Outcomes/Goals 1.PO intake to meet 75% of estimated nutritional needs. 2.Monitor PO intake, wt, nutrition related labs to trend WNL, and skin integrity to trend WNL. 3.F/U as moderate risk in 3-5 days, -07/24
[2019-08-02] MEDS: Insulin Glargine 100 units/ml 10ml Vial SUBQ SCH (20:43)
[2019-08-03] MEDS: Albuterol/Ipratropium Neb 3 ML AERS HHN SCH ×4 (00:45→17:57)
[2019-08-03] MEDS: Levothyroxine 0.025 Mg Tab PO SCH (06:46)
[2019-08-03] MEDS: Hydrocodone/APAP 10 mg/325 mg Tab PO PRN (06:46)
[2019-08-03] MEDS: INSULIN LISPRO SLIDING SCALE 100 UNITS/ML UNIT SUBQ SCH ×4 (06:47→21:57)
[2019-08-03] MEDS: Aspirin 81mg Chewable Tab PO SCH (08:49)
[2019-08-03] MEDS: Potassium Chloride 20 mEq ER Tab PO SCH (08:50)
--- NOTE | 2019-08-03 18:15 | Psych Progress Note ---
Psych Progress Note - Intro Date of Progress Note: 08/03/19 - Assessment Assessment: Patient interviewed, case discussed with staff, chart and records were reviewed. Dr. Doyle covering for Dr. Velásquez. The patient was visited bedside. The patient is sleeping difficult to awake for the interview. Per staff reports the patient has been very delusional and irritable and with mood swings and needs constant redirection. At this time the patient appears calm and sleeping and uncooperative and not willing to cooperate with the interview. No side effects have been noted. - Vitals, I&O Vitals: Vital Signs - 24 hr 08/02/19 08/03/19 08/03/19 20:00 06:10 08:00 Temp 98.1 F 97.0 F HR 82 82 RR 20 20 17 BP 110/69 116/65 O2 Sat % 97 96 08/03/19 08/03/19 08:50 15:10 Temp 97.4 F HR 82 89 RR 18 BP 116/65 99/56 O2 Sat % 95 - Plan Plan: Continue current treatment plan and monitor for behaviors. - Review of Relevant Data Review of Relevant Data: I have reviewed the following items and time gretta (where applicable) has been applied. - Medications Current Medications: Current Medications Acetaminophen (Tylenol) 650 mg PO Q4HR PRN PRN Reason: Pain or Fever >101 Stop: 09/30/19 20:58 Acetaminophen/Hydrocodone Bitart ([place] 10 Mg/325 Mg) 1 tab PO Q4H PRN PRN Reason: Pain (Severe 7-10) Stop: 09/14/19 03:44 Last Admin: 08/03/19 06:46 Dose: 1 tab Albuterol/Ipratropium (Duoneb Neb) 3 ml HHN Q6HR [facility] Stop: 09/14/19 07:59 Last Admin: 08/03/19 17:57 Dose: Not Given Aspirin (Aspirin Chewable) 81 mg PO DAILY [facility] Stop: 09/14/19 08:59 Last Admin: 08/03/19 08:49 Dose: 81 mg Docusate Sodium (Colace) 100 mg PO BID [facility] Stop: 09/14/19 08:59 Last Admin: 08/03/19 16:37 Dose: 100 mg Duloxetine HCl (Cymbalta) 60 mg PO DAILY [facility]; Protocol Stop: 09/15/19 08:59 Last Admin: 08/03/19 08:50 Dose: 60 mg Escitalopram Oxalate (Lexapro) 10 mg PO HS [facility]; Protocol Stop: 09/17/19 20:59 Last Admin: 08/02/19 20:35 Dose: 10 mg Furosemide (Lasix) 20 mg PO DAILY [facility] Stop: 09/14/19 08:59 Last Admin: 08/03/19 08:50 Dose: 20 mg Gabapentin (Neurontin) 300 mg PO BID [facility] Stop: 09/21/19 08:59 Last Admin: 08/03/19 16:37 Dose: 300 mg Insulin Glargine (Lantus Insulin) 26 units SUBQ HS [facility] Stop: 09/14/19 20:59 Last Admin: 08/02/19 20:43 Dose: 26 unit Insulin Human Lispro (Humalog Insulin Sliding Scale) 0 units SUBQ ACHS [facility] Stop: 09/14/19 07:29 Last Admin: 08/03/19 16:25 Dose: Not Given Levothyroxine Sodium (Synthroid) 0.025 mg PO QDAC [facility] Stop: 09/14/19 08:29 Last Admin: 08/03/19 06:46 Dose: 0.025 mg Lorazepam (Ativan) 0.5 mg PO Q4HR PRN; Protocol PRN Reason: Anxiety Stop: 08/15/19 02:54 Last Admin: 07/19/19 16:34 Dose: 0.5 mg Metoprolol Succinate (Toprol Xl) 50 mg PO DAILY [facility] Stop: 09/14/19 08:59 Last Admin: 08/03/19 08:50 Dose: 50 mg Potassium Chloride (Klor-Con) 20 meq PO DAILY [facility] Stop: 09/14/19 08:59 Last Admin: 08/03/19 08:50 Dose: 20 meq Quetiapine Fumarate (Seroquel) 200 mg PO HS [facility] Stop: 09/29/19 20:59 Last Admin: 08/02/19 20:36 Dose: 200 mg Quetiapine Fumarate (Seroquel) 100 mg PO BID [facility] Stop: 10/01/19 08:59 Last Admin: 08/03/19 16:37 Dose: 100 mg Temazepam (Restoril) 15 mg PO [facility]; Protocol Stop: 09/14/19 20:59 Last Admin: 08/02/19 20:35 Dose: 15 mg Tolterodine Tartrate (Detrol) 2 mg PO BID [facility] Stop: 09/14/19 09:59 Last Admin: 08/03/19 16:37 Dose: 2 mg
[2019-08-03] MEDS: Insulin Glargine 100 units/ml 10ml Vial SUBQ SCH (21:56)
[2019-08-04] MEDS: Albuterol/Ipratropium Neb 3 ML AERS HHN SCH ×4 (00:34→17:13)
[2019-08-04] MEDS: INSULIN LISPRO SLIDING SCALE 100 UNITS/ML UNIT SUBQ SCH ×4 (06:34→20:54)
[2019-08-04] MEDS: Levothyroxine 0.025 Mg Tab PO SCH (06:35)
[2019-08-04] MEDS: Aspirin 81mg Chewable Tab PO SCH (09:28)
[2019-08-04] MEDS: Potassium Chloride 20 mEq ER Tab PO SCH (09:30)
--- NOTE | 2019-08-04 11:11 | Progress Notes ---
DATE: 08/04/2019 SUBJECTIVE: A 74-year-old female coming from [facility], apparently aggressive, verbally abusive, threatening other roommates, history of schizophrenia. The patient is still agitated, upset, ____ "voices," not patti for safety, hoping for dose increase of medications. Currently on Seroquel, Lexapro, also Cymbalta. The patient mostly withdrawn, keeps to self, ongoing symptoms, safety concerns. PLAN: I will be stopping dosing of Lexapro given that she is on Cymbalta, recommend dose titration of Cymbalta. The patient currently on dosing of Seroquel. I will be increasing the dose of Seroquel to target perceptual disturbances. JOB# [id number]
--- NOTE | 2019-08-04 19:55 | Internal Medicine Prog Note ---
Internal Medicine Subjective - Subjective Service Date: 08/04/19 (no events) Patient seen and examined:: without staff Patient is:: awake Per staff patient has:: no adverse event Internal Medicine Objective - Results Recent Labs: Laboratory Last Values POC Glucose 210 MG/DL (70 - 105) H 08/04/19 16:58 - Physical Exam Vitals and I&O: Vital Signs Temp 98.5 F 08/04/19 05:56 Pulse 109 08/04/19 09:29 Resp 18 08/04/19 08:00 BP 136/72 08/04/19 09:29 Pulse Ox 94 08/04/19 05:56 Intake & Output 08/04/19 08/04/19 08/05/19 06:59 18:59 06:59 Intake Total 360 Balance 360 Intake: Oral 360 Other: # Voids 1 # Bowel Movements 0 Active Medications: Current Medications Acetaminophen (Tylenol) 650 mg PO Q4HR PRN PRN Reason: Pain or Fever >101 Stop: 09/30/19 20:58 Last Admin: 08/04/19 12:23 Dose: 650 mg Acetaminophen/Hydrocodone Bitart ([place] 10 Mg/325 Mg) 1 tab PO Q4H PRN PRN Reason: Pain (Severe 7-10) Stop: 09/14/19 03:44 Last Admin: 08/03/19 06:46 Dose: 1 tab Albuterol/Ipratropium (Duoneb Neb) 3 ml HHN Q6HR [facility] Stop: 09/14/19 07:59 Last Admin: 08/04/19 17:13 Dose: Not Given Aspirin (Aspirin Chewable) 81 mg PO DAILY [facility] Stop: 09/14/19 08:59 Last Admin: 08/04/19 09:28 Dose: 81 mg Docusate Sodium (Colace) 100 mg PO BID [facility] Stop: 09/14/19 08:59 Last Admin: 08/04/19 16:16 Dose: 100 mg Duloxetine HCl (Cymbalta) 60 mg PO DAILY [facility]; Protocol Stop: 09/15/19 08:59 Last Admin: 08/04/19 09:28 Dose: 60 mg Furosemide (Lasix) 20 mg PO DAILY [facility] Stop: 09/14/19 08:59 Last Admin: 08/04/19 09:28 Dose: 20 mg Gabapentin (Neurontin) 300 mg PO BID [facility] Stop: 09/21/19 08:59 Last Admin: 08/04/19 16:16 Dose: 300 mg Insulin Glargine (Lantus Insulin) 26 units SUBQ HS [facility] Stop: 09/14/19 20:59 Last Admin: 08/03/19 21:56 Dose: Not Given Insulin Human Lispro (Humalog Insulin Sliding Scale) 0 units SUBQ ACHS [facility] Stop: 09/14/19 07:29 Last Admin: 08/04/19 17:28 Dose: 4 units Levothyroxine Sodium (Synthroid) 0.025 mg PO QDAC [facility] Stop: 09/14/19 08:29 Last Admin: 08/04/19 06:35 Dose: Not Given Lorazepam (Ativan) 0.5 mg PO Q4HR PRN; Protocol PRN Reason: Anxiety Stop: 08/15/19 02:54 Last Admin: 07/19/19 16:34 Dose: 0.5 mg Metoprolol Succinate (Toprol Xl) 50 mg PO DAILY [facility] Stop: 09/14/19 08:59 Last Admin: 08/04/19 09:29 Dose: 50 mg Potassium Chloride (Klor-Con) 20 meq PO DAILY [facility] Stop: 09/14/19 08:59 Last Admin: 08/04/19 09:30 Dose: 20 meq Quetiapine Fumarate (Seroquel) 100 mg PO BID [facility] Stop: 10/01/19 08:59 Last Admin: 08/04/19 16:16 Dose: 100 mg Quetiapine Fumarate 200 mg/ (Quetiapine Fumarate 50 mg) 250 mg PO HS [facility] Stop: 10/03/19 20:59 Temazepam (Restoril) 15 mg PO [facility]; Protocol Stop: 09/14/19 20:59 Last Admin: 08/03/19 21:57 Dose: Not Given Tolterodine Tartrate (Detrol) 2 mg PO BID [facility] Stop: 09/14/19 09:59 Last Admin: 08/04/19 16:16 Dose: 2 mg HEENT: NC/AT, PERRLA Neck: Supple, No LAD Lungs: CTAB Cardiovascular: RRR, Normal S1, Normal S2 Abdomen: soft, non-tender, non-distended Extremities: clear Internal Medicine Assmt/Plan - Assessment Assessment: SSESSMENT: 1. Acute psych decompensation-cont with current mgt. 2. History of schizophrenia. 3. Type 2 diabetes with diabetic neuropathy. 4. Previous history of lower extremity cellulitis. 5. History of hypothyroidism. 6. Essential hypertension-stable. - Plan Plan: CONT WITH CURRENT TX PLAN MONITOR WITH CURRENT GLUCOMETER CHECKS Nutritional Asmnt/Malnutr-PDOC - Dietary Evaluation Malnutrition Findings (Please click <Entered> for more info): Nutritional Asmnt/Malnutrition Start: 07/19/19 15: 53 Text: Status: Complete Freq: Protocol: Document 07/19/19 15:53 QUIQUE (Rec: 07/19/19 15:56 [email or web address]) Nutritional Asmnt/Malnutrition Patient General Information Nutritional Screening Moderate Risk Diagnosis Psychosis Pertinent Medical Hx/Surgical Hx Schizophrenia, DM, Peripheral Neuropathy, COPD, HTN, Hypothyroidism Subjective Information Pt is a 74-year-old female admitted on 07/16 d/t aggressiveness, verbally abusive, threatening to roommate. Pt only ate 50% meals on admit date, refused meals the next day and ate 50% , 75%,75% yesterday. Visited pt in room, she stated the food was good today. She understands she has diabetes and understands her Diet Rx. Educated her on not having juice in between meals and making sure she drinks lots of water and milk at meals. Pt stated understanding. Will continue to monitor PO intake. Anthropometrics HT: 52 WT: 169 LB (76.82 kg) ABW: 125 LB (56.70 kg) BMI: 30.91 (Obese) GI/ Skin Integrity GI: WNL, Soft, Non-tender, Round, Large BM: Not Noted I/O: 1320/Not Noted Skin: Dryness, Rt lateral knee dry scab, Distal lower extremities dry scabs Castro: 16 [facility] Estimated Energy Needs: (Obese , ABW) 0518-9079 kcals (20-25 kcals/ kg) 45-56g Pro (0.8-1.0 g/kg) 3348-5722 ml (25-30 ml/kg) Current Diet Order/ Nutrition Support [facility] Pertinent Medications Albuterol, Colace, Lasix, Lantus, INS-SS, Synthroid, Klor-Con Pertinent Labs 07/17: Glucose 179, Alk Phos 123, Tags 205, HDL 30, A1c 8.8 % Nutritional Hx/Data Height 1.57 m Height (Calculated Centimeters) 157.5 Current Weight (lbs) 76.657 kg Weight (Calculated Kilograms) 76.7 Weight (Calculated Grams) 85389.1 [place] Body Weight 110 LB (50 kg) % [place] Body Weight 154 Body Mass Index (BMI) 30.9 Weight Status Obese GI Symptoms GI Symptoms None Last BM Not Noted Skin Integrity/Comment: Skin: Dryness, Rt lateral knee dry scab, Distal lower extremities dry scabs Castro: 16 Current %PO Fair (50-74%) Estimated Nutritional Goals BEE in Kcals: Adj wt of IBW Calories/Kcals/Kg 20-25 Kcals Calculated 3982-7162 Protein: Adj wt of IBW Protein g/k.8-1.0 Protein Calculated 45-56 Fluid: ml 6080-8339 ml (25-30 ml/kg) Nutritional Problem 2. Problem Problem Obesity Etiology r/t consistent energy overconsumption Signs/Symptoms: aeb BMI 30.91 (obese). 1. Problem Problem Impaired nutrient utilization Etiology r/t endocrine dysfunction Signs/Symptoms: aeb labs (07/17) glucose 179, A1c 8.8%. Malnutrition Related to Morbid Obesity Malnutrition related to morbid obesity No Intervention/Recommendation Comments 1.Continue CCHO diet as tolerated. 2.Continue antihyperglycemic medications for glucose control per MD order. Expected Outcomes/Goals Expected Outcomes/Goals 1.PO intake to meet 75% of estimated nutritional needs. 2.Monitor PO intake, wt, nutrition related labs to trend WNL, and skin integrity to trend WNL. 3.F/U as moderate risk in 3-5 days, -07/24
[2019-08-04] MEDS: Insulin Glargine 100 units/ml 10ml Vial SUBQ SCH (20:54)
[2019-08-05] MEDS: Levothyroxine 0.025 Mg Tab PO SCH (06:38)
[2019-08-05] MEDS: Albuterol/Ipratropium Neb 3 ML AERS HHN SCH ×3 (06:39→06:48)
[2019-08-05] MEDS: Hydrocodone/APAP 10 mg/325 mg Tab PO PRN ×2 (06:40→20:49)
[2019-08-05] MEDS: INSULIN LISPRO SLIDING SCALE 100 UNITS/ML UNIT SUBQ SCH ×4 (06:57→20:58)
[2019-08-05] MEDS: Aspirin 81mg Chewable Tab PO SCH (08:09)
[2019-08-05] MEDS: Potassium Chloride 20 mEq ER Tab PO SCH (08:09)
--- NOTE | 2019-08-05 14:47 | Internal Medicine Prog Note ---
Internal Medicine Subjective - Subjective Service Date: 08/05/19 (no events) Patient is:: awake Per staff patient has:: no adverse event Internal Medicine Objective - Results Recent Labs: Laboratory Last Values POC Glucose 223 MG/DL (70 - 105) H 08/05/19 06:46 - Physical Exam Vitals and I&O: Vital Signs Temp 97.9 F 08/05/19 06:49 Pulse 89 08/05/19 08:10 Resp 20 08/05/19 06:49 BP 124/64 08/05/19 08:12 Pulse Ox 96 08/05/19 06:49 Intake & Output 08/04/19 08/05/19 08/05/19 18:59 06:59 18:59 Intake Total 240 Balance 240 Intake: Oral 240 Other: # Voids 3 # Bowel Movements 0 Active Medications: Current Medications Acetaminophen (Tylenol) 650 mg PO Q4HR PRN PRN Reason: Pain or Fever >101 Stop: 09/30/19 20:58 Last Admin: 08/04/19 12:23 Dose: 650 mg Acetaminophen/Hydrocodone Bitart ([place] 10 Mg/325 Mg) 1 tab PO Q4H PRN PRN Reason: Pain (Severe 7-10) Stop: 09/14/19 03:44 Last Admin: 08/05/19 06:40 Dose: 1 tab Albuterol/Ipratropium (Duoneb Neb) 3 ml HHN Q6HR [facility] Stop: 09/14/19 07:59 Last Admin: 08/05/19 06:48 Dose: Not Given Aspirin (Aspirin Chewable) 81 mg PO DAILY [facility] Stop: 09/14/19 08:59 Last Admin: 08/05/19 08:09 Dose: 81 mg Docusate Sodium (Colace) 100 mg PO BID [facility] Stop: 09/14/19 08:59 Last Admin: 08/05/19 08:09 Dose: 100 mg Duloxetine HCl (Cymbalta) 60 mg PO DAILY [facility]; Protocol Stop: 09/15/19 08:59 Last Admin: 08/05/19 08:08 Dose: 60 mg Furosemide (Lasix) 20 mg PO DAILY [facility] Stop: 09/14/19 08:59 Last Admin: 08/05/19 08:12 Dose: 20 mg Gabapentin (Neurontin) 300 mg PO BID [facility] Stop: 09/21/19 08:59 Last Admin: 08/05/19 08:09 Dose: 300 mg Insulin Glargine (Lantus Insulin) 26 units SUBQ HS [facility] Stop: 09/14/19 20:59 Last Admin: 08/04/19 20:54 Dose: 26 unit Insulin Human Lispro (Humalog Insulin Sliding Scale) 0 units SUBQ ACHS [facility] Stop: 09/14/19 07:29 Last Admin: 08/05/19 12:00 Dose: Not Given Levothyroxine Sodium (Synthroid) 0.025 mg PO QDAC [facility] Stop: 09/14/19 08:29 Last Admin: 08/05/19 06:38 Dose: 0.025 mg Lorazepam (Ativan) 0.5 mg PO Q4HR PRN; Protocol PRN Reason: Anxiety Stop: 08/15/19 02:54 Last Admin: 07/19/19 16:34 Dose: 0.5 mg Metoprolol Succinate (Toprol Xl) 50 mg PO DAILY [facility] Stop: 09/14/19 08:59 Last Admin: 08/05/19 08:10 Dose: 50 mg Potassium Chloride (Klor-Con) 20 meq PO DAILY [facility] Stop: 09/14/19 08:59 Last Admin: 08/05/19 08:09 Dose: 20 meq Quetiapine Fumarate (Seroquel) 100 mg PO BID [facility] Stop: 10/01/19 08:59 Last Admin: 08/05/19 08:08 Dose: 100 mg Quetiapine Fumarate 200 mg/ (Quetiapine Fumarate 50 mg) 250 mg PO [facility] Stop: 10/03/19 20:59 Last Admin: 08/04/19 20:54 Dose: 250 mg Temazepam (Restoril) 15 mg PO [facility]; Protocol Stop: 09/14/19 20:59 Last Admin: 08/04/19 20:54 Dose: 15 mg Tolterodine Tartrate (Detrol) 2 mg PO BID [facility] Stop: 09/14/19 09:59 Last Admin: 08/05/19 08:10 Dose: 2 mg HEENT: NC/AT, PERRLA Neck: Supple, No LAD Lungs: CTAB Cardiovascular: RRR, Normal S1, Normal S2 Abdomen: soft, non-tender, non-distended Extremities: clear Internal Medicine Assmt/Plan - Assessment Assessment: SSESSMENT: 1. Acute psych decompensation-cont with current mgt. 2. History of schizophrenia. 3. Type 2 diabetes with diabetic neuropathy. 4. Previous history of lower extremity cellulitis. 5. History of hypothyroidism. 6. Essential hypertension-stable. - Plan Plan: CONT WITH CURRENT TX PLAN MONITOR WITH CURRENT GLUCOMETER CHECKS Nutritional Asmnt/Malnutr-PDOC - Dietary Evaluation Malnutrition Findings (Please click <Entered> for more info): Nutritional Asmnt/Malnutrition Start: 07/19/19 15: 53 Text: Status: Complete Freq: Protocol: Document 07/19/19 15:53 [email or web address] (Rec: 07/19/19 15:56 [email or web address]) Nutritional Asmnt/Malnutrition Patient General Information Nutritional Screening Moderate Risk Diagnosis Psychosis Pertinent Medical Hx/Surgical Hx Schizophrenia, DM, Peripheral Neuropathy, COPD, HTN, Hypothyroidism Subjective Information Pt is a 74-year-old female admitted on 07/16 d/t aggressiveness, verbally abusive, threatening to roommate. Pt only ate 50% meals on admit date, refused meals the next day and ate 50% , 75%,75% yesterday. Visited pt in room, she stated the food was good today. She understands she has diabetes and understands her Diet Rx. Educated her on not having juice in between meals and making sure she drinks lots of water and milk at meals. Pt stated understanding. Will continue to monitor PO intake. Anthropometrics HT: 52 WT: 169 LB (76.82 kg) ABW: 125 LB (56.70 kg) BMI: 30.91 (Obese) GI/ Skin Integrity GI: WNL, Soft, Non-tender, Round, Large BM: Not Noted I/O: 1320/Not Noted Skin: Dryness, Rt lateral knee dry scab, Distal lower extremities dry scabs Castro: 16 Diet Order: [facility] [place] Estimated Energy Needs: (Obese , ABW) 7894-5866 kcals (20-25 kcals/ kg) 45-56g Pro (0.8-1.0 g/kg) 1795-4192 ml (25-30 ml/kg) Current Diet Order/ Nutrition Support [facility] [place] Pertinent Medications Albuterol, Colace, Lasix, Lantus, INS-SS, Synthroid, Klor-Con Pertinent Labs 07/17: Glucose 179, Alk Phos 123, Tags 205, HDL 30, A1c 8.8 % Nutritional Hx/Data Height 1.57 m Height (Calculated Centimeters) 157.5 Current Weight (lbs) 76.657 kg Weight (Calculated Kilograms) 76.7 Weight (Calculated Grams) 37926.1 [place] Body Weight 110 LB (50 kg) % [place] Body Weight 154 Body Mass Index (BMI) 30.9 Weight Status Obese GI Symptoms GI Symptoms None Last BM Not Noted Skin Integrity/Comment: Skin: Dryness, Rt lateral knee dry scab, Distal lower extremities dry scabs Castro: 16 Current %PO Fair (50-74%) Estimated Nutritional Goals BEE in Kcals: Adj wt of IBW Calories/Kcals/Kg 20-25 Kcals Calculated 9704-1479 Protein: Adj wt of IBW Protein g/k.8-1.0 Protein Calculated 45-56 Fluid: ml 7620-4717 ml (25-30 ml/kg) Nutritional Problem 2. Problem Problem Obesity Etiology r/t consistent energy overconsumption Signs/Symptoms: aeb BMI 30.91 (obese). 1. Problem Problem Impaired nutrient utilization Etiology r/t endocrine dysfunction Signs/Symptoms: aeb labs (07/17) glucose 179, A1c 8.8%. Malnutrition Related to Morbid Obesity Malnutrition related to morbid obesity No Intervention/Recommendation Comments 1.Continue CCHO diet as tolerated. 2.Continue antihyperglycemic medications for glucose control per MD order. Expected Outcomes/Goals Expected Outcomes/Goals 1.PO intake to meet 75% of estimated nutritional needs. 2.Monitor PO intake, wt, nutrition related labs to trend WNL, and skin integrity to trend WNL. 3.F/U as moderate risk in 3-5 days, -07/24
[2019-08-05 16:03] VITALS: BP 154/80
[2019-08-05] MEDS: Insulin Glargine 100 units/ml 10ml Vial SUBQ SCH (20:59)
[2019-08-06] MEDS: Albuterol/Ipratropium Neb 3 ML AERS HHN SCH ×3 (06:00→12:30)
[2019-08-06] MEDS: INSULIN LISPRO SLIDING SCALE 100 UNITS/ML UNIT SUBQ SCH ×2 (06:37→11:26)
[2019-08-06] MEDS: Levothyroxine 0.025 Mg Tab PO SCH (06:37)
[2019-08-06] MEDS: Hydrocodone/APAP 10 mg/325 mg Tab PO PRN (06:37)
--- NOTE | 2019-08-06 07:06 | Discharge Summary ---
DATE OF DISCHARGE: 08/06/2019 AGE: 74. SEX: Female. PHYSICIAN: Dr. Velásquez. FINAL DIAGNOSIS AND PRIMARY DIAGNOSIS: Schizophrenic disorder. REASON FOR HOSPITALIZATION: The patient was admitted to the hospital from [facility] because the patient was aggressive and verbally abusive and was threatening her roommate and staff in the facility. HOSPITAL COURSE: The patient continued to be agitated and in irritable mood. The patient also was restless and was in angry mood. The patient also is having severe mood swings with yelling and screaming episodes. The patient was started on Cymbalta and the dose adjusted to 60 mg every day and gabapentin dose adjusted to 300 mg twice a day. The patient was started also on Seroquel, but started to help patient's mood and the dose adjusted to 100 mg twice a day and 250 mg at bedtime. Gradually, the patient's affect was brighter. The patient was less irritable and less agitated. Also, it was easier to follow directions. Also, decreased mood swings. The patient was discharged back to [facility]. PHYSICAL EXAMINATION: Physical exam of the patient was monitored closely by Dr. Dominguez and the patient has no major medical issues while in the hospital. AFTER DISCHARGE PLANS: The patient discharged from the hospital and returned back to [facility] with plans for followup there. EXPECTED OUTCOME AFTER DISCHARGE: Fair if the patient continues to take her psychotropic medications and follow up with discharge plans. [facility]# [id number]
[2019-08-06] MEDS: Potassium Chloride 20 mEq ER Tab PO SCH (08:20)
[2019-08-06] MEDS: Aspirin 81mg Chewable Tab PO SCH (08:24)
--- NOTE | 2019-08-06 09:27 | Progress Notes ---
DATE: SUBJECTIVE: Chart reviewed and the patient interviewed. Also discussed the patient's condition with the staff and reviewed records and labs. The patient is still anxious and is still in a depressed mood. The patient also is still interacting minimally with others. The patient also is compliant with taking her medications with no side effects of medications. ASSESSMENT: The patient is still anxious and depressed and has mood swings and in irritable mood. TREATMENT PLAN: Continue monitoring behavior closely. Also, continue to work on her ineffective coping and her compliant with medications, also working on discharge plans and placement issue. JOB# [id number]
== END 2019-08-06 13:15 | DRG 885 ==
LOC: GERO 07-16 01:13
PROVIDERS: ADMIT Psychiatry & Neurology Psychiatry; ATTEND Psychiatry & Neurology Psychiatry
DX: F20.9 Schizophrenia, unspecified (principal); F39 Unspecified mood [affective] disorder; I10 Essential (primary) hypertension; F22 Delusional disorders; Z87.891 Personal history of nicotine dependence; E11.42 Type 2 diabetes mellitus with diabetic polyneuropathy; J44.9 Chronic obstructive pulmonary disease, unspecified; E03.9 Hypothyroidism, unspecified; Z88.0 Allergy status to penicillin; Z79.84 Long term (current) use of oral hypoglycemic drugs; Z79.899 Other long term (current) drug therapy
CPT/HCPCS: 82948-90; 83036-90; G0410; J1815; Z7610

== ENCOUNTER 2019-08-28 12:39 | Inpatient (IN) | payer MEDICARE, OTHER ==
[2019-08-29 02:35] VITALS: BP 117/78
[2019-08-29] MEDS ORDERED: Magnesium Hydroxide (MOM) 30 mL UDC PO PRN (02:36)
[2019-08-29] MEDS ORDERED: Maalox 30 mL Cup PO PRN (02:36)
[2019-08-29] MEDS ORDERED: GLUCAGON HCl 1 MG KIT IM PRN ×2 (03:52→19:15)
[2019-08-29] MEDS ORDERED: Hydrocodone/APAP 10 mg/325 mg Tab PO PRN (04:55)
[2019-08-29] MEDS ORDERED: Albuterol/Ipratropium Neb 3 ML AERS HHN SCH (06:00)
[2019-08-29] MEDS: INSULIN LISPRO SLIDING SCALE 100 UNITS/ML UNIT SUBQ SCH ×4 (07:18→20:46)
[2019-08-29] MEDS ORDERED: Albuterol/Ipratropium Neb 3 ML AERS HHN ONE (08:00)
--- NOTE | 2019-08-29 08:43 | Psychiatric Evaluation ---
DATE OF SERVICE: 08/29/2019 PSYCHIATRIC INITIAL EVALUATION AND MENTAL STATUS EXAM AGE: 74. SEX: Female. PHYSICIAN: Dr. Velásquez. CHIEF COMPLAINT: Agitation and verbal abuse. HISTORY OF PRESENT ILLNESS: The patient is a 74-year-old female who has been under my care in [facility]. The patient has been agitated and has been verbally abrasive with the staff. The patient also has been trying to leave the facility without knowing where she is going and has been suspicious and paranoid about the people there. I tried to adjust her medications including Seroquel and Risperdal, but the patient was still agitated and aggressive and in irritable mood. She also has been having severe mood swings with difficulty following directions. PAST PSYCHIATRIC HISTORY: The patient has history of schizoaffective disorder and has been taking Seroquel and also Risperdal and Lexapro. CURRENT MEDICATIONS: Seroquel, Lexapro and Risperdal. PAST MEDICAL HISTORY: The patient has history of hypertension, diabetes mellitus, hypothyroidism, peripheral neuropathy and COPD. SOCIAL HISTORY: The patient lives in [facility]. No known alcohol or street drug use. No known legal issues or abuse issues. ALLERGIES: No known allergies. MENTAL STATUS EXAMINATION: The patient appears slightly older than her stated age. Anxious. Sad affect. Irritable mood. Thought processes are circumstantial, but no flight of ideas. The patient denies auditory or visual hallucinations, but seems to be suspicious and paranoid. The patient denies any current suicidal or homicidal ideations. The patient is alert and oriented to time, place, person, and situation. Intact immediate, recent and remote memories. Poor insight and she does not know why she is in the hospital. Poor judgment and she wanted to leave the facility in [facility] and was aggressive with the staff. Seems to be of average intelligence based on her verbal ability. ASSESSMENT: PRIMARY DIAGNOSIS: Schizoaffective disorder, bipolar type, severe, with psychotic features. MEDICAL DIAGNOSES: 1. Hypertension. 2. Hypothyroidism. 3. Peripheral neuropathy. TREATMENT PLAN: We will monitor patient's behavior closely. We will discontinue Risperdal and we will add Depakote. We will also monitor her medications. ESTIMATED LENGTH OF STAY: 5-7 days. PATIENT'S STRENGTHS AND WEAKNESSES: The patient has supportive staff in the facility and she seems to be relatively fair health and cooperative with taking her medications. Weaknesses are her ineffective coping and agitation and aggressive behavior. AFTER DISCHARGE PLAN: The patient will return to the facility and outpatient treatment and followup will continue there. [facility]# [id number]
[2019-08-29] MEDS: Potassium Chloride 20 mEq ER Tab PO SCH (09:45)
[2019-08-29] MEDS: Aspirin 81mg Chewable Tab PO SCH (09:45)
[2019-08-29] MEDS: Levothyroxine 0.025 Mg Tab PO SCH (09:55)
[2019-08-29] MEDS: Albuterol/Ipratropium Neb 3 ML AERS HHN SCH ×2 (13:26→19:05)
--- NOTE | 2019-08-29 20:11 | History & Physical ---
ADMIT DATE: 08/29/2019 HISTORY OF PRESENT ILLNESS: A 74-year-old female with long history of diabetes mellitus, hypertension, hypothyroidism, bladder dysfunction, dementia, psychosis, admitted to [facility] under Dr. Velásquez's service on 08/29/2019. The patient feels well, no chest pain, no shortness of breath, nausea, vomiting, fever or chills. PAST MEDICAL HISTORY: Significant for hypertension, diabetes mellitus, hypothyroidism, bladder dysfunction, dementia and psychosis. PAST SURGICAL HISTORY: No recent surgery. ALLERGIES: PENICILLIN. MEDICATIONS: Follow admission reconciliation. SOCIAL HISTORY: No smoking, no alcohol, no drug. FAMILY HISTORY: Noncontributory. REVIEW OF SYSTEMS: RENAL SYSTEM: No history of chronic renal disorder. CARDIOVASCULAR SYSTEM: She has history of hypertension. ENDOCRINE SYSTEM: She has history of hypothyroidism and diabetes mellitus. GASTROINTESTINAL SYSTEM: No upper or lower gastrointestinal bleed. NEUROLOGICAL SYSTEM: No seizure disorder. SKELETOMUSCULAR SYSTEM: No muscular dystrophy. HEMATOLOGICAL SYSTEM: No bleeding tendencies. RESPIRATORY SYSTEM: No asthma. GENITOURINARY: She has bladder dysfunction. PHYSICAL EXAMINATION: GENERAL: She is awake, alert, mildly confused. VITAL SIGNS: Temperature 97.1, heart rate 90, blood pressure 121/75. HEENT: Normocephalic. Pupils reacting equal to light and accommodation. Sclerae clear. Examination of mouth, well hydrated mucosa. NECK: Supple. Negative for lymphadenopathy, JVD or bruit. CHEST: Air bilaterally normal. No rhonchi or wheezing. HEART: S1, S2 normal. No murmurs, rubs or gallop rhythm. BREAST: Examination done by primary physician, no complaint. ABDOMEN: Soft, bowel sounds positive. EXTREMITIES: No edema. BACK: Normal vertebra. SKIN: Intact. GENITAL AND RECTAL: Done by primary physician, no complaint. NEUROLOGIC: She is awake, alert, mildly confused. Cranial nerve 1: The patient is able to smell different odor. Cranial nerve 2: The patient is able to read printed page. Cranial nerve 3: The patient is able to move eyeball upward and outward. Cranial nerve 4: The patient is able to move eyeball inward and downward. Cranial nerve 5: The patient is able to clench teeth, has normal sensation to forehead. Cranial nerve 6: The patient is able to move eyeball lateral on both sides. Cranial nerve 7: The patient is able to move eyebrow upward on both sides. Cranial nerve 8: The patient is able to hear finger rubs on both sides. Cranial nerve 9: The patient has normal gag reflex. Cranial nerve 10: The patient is able to move soft palate upward on both sides. Cranial nerve 11: The patient is able to shrink shoulder on both sides. Cranial nerve 12: The patient is able to stick tongue straight. Motor system examination within normal limits. Deep tendon reflexes within normal limits. Coordination of muscle within normal limits. Sensory system: The patient has normal pain, touch, position of the upper extremities. Gait is stable. ASSESSMENT: 1. Hypertension. 2. Diabetes mellitus. 3. Hypothyroidism. 4. Psychosis. PLAN: The patient admitted to the hospital under Dr. Velásquez's service. Medical problem addressed during hospitalization is psychosis. Medical problems addressed at discharge are hypertension, diabetes mellitus, hypothyroidism. The patient is medically stable for activity. Thank you Dr. Velásquez for asking me to see your patient. The patient will follow up with primary physician upon discharge. The patient is a full code. JOB# [id number]
[2019-08-29] MEDS: Insulin Glargine 100 units/ml 10ml Vial SUBQ SCH (20:45)
[2019-08-29] MEDS ORDERED: INSULIN LISPRO SLIDING SCALE 100 UNITS/ML UNIT SUBQ SCH (21:00)
[2019-08-29] MEDS ORDERED: Insulin Glargine 100 units/ml 10ml Vial SUBQ SCH (21:00)
[2019-08-29] MEDS ORDERED: Escitalopram Oxalate 5 mg Tab PO SCH (21:00)
[2019-08-30] MEDS ORDERED: Albuterol/Ipratropium Neb 3 ML AERS HHN SCH
[2019-08-30] MEDS: Albuterol/Ipratropium Neb 3 ML AERS HHN SCH ×3 (01:00→12:46)
[2019-08-30] MEDS: Levothyroxine 0.025 Mg Tab PO SCH (06:37)
[2019-08-30] MEDS: INSULIN LISPRO SLIDING SCALE 100 UNITS/ML UNIT SUBQ SCH ×4 (06:54→21:11)
[2019-08-30] MEDS ORDERED: Levothyroxine 0.025 Mg Tab PO SCH (07:30)
[2019-08-30] MEDS: Aspirin 81mg Chewable Tab PO SCH (08:24)
[2019-08-30] MEDS: Potassium Chloride 20 mEq ER Tab PO SCH (08:26)
[2019-08-30] MEDS ORDERED: TOLTERODINE TARTRATE 4 MG PO SCH (09:00)
[2019-08-30] MEDS ORDERED: Aspirin 81mg Chewable Tab PO SCH (09:00)
--- NOTE | 2019-08-30 18:23 | Internal Medicine Prog Note ---
Internal Medicine Subjective - Subjective Service Date: 08/30/19 Patient seen and examined:: with staff (SHE FEELS WELL) Patient is:: awake, verbal, ambulating, talking, confused Per staff patient has:: no adverse event, confused Internal Medicine Objective - Results Recent Labs: Laboratory Last Values POC Glucose 194 MG/DL (70 - 105) H 08/30/19 06:45 - Physical Exam Vitals and I&O: Vital Signs Temp 97.6 F 08/30/19 14:00 Pulse 92 08/30/19 14:00 Resp 20 08/30/19 14:00 BP 133/75 08/30/19 14:00 Pulse Ox 98 08/30/19 14:00 Intake & Output 08/29/19 08/30/19 08/30/19 18:59 06:59 18:59 Intake Total 850 120 Balance 850 120 Intake: Oral 850 120 Other: # Voids 1 # Bowel Movements 0 Active Medications: Current Medications Acetaminophen (Tylenol) 650 mg PO Q4H PRN PRN Reason: Pain (Mild 1-3) Stop: 10/28/19 02:35 Last Admin: 08/30/19 07:00 Dose: 650 mg Acetaminophen/Hydrocodone Bitart ([place] 10 Mg/325 Mg) 1 tab PO Q4H PRN PRN Reason: Pain (Severe 7-10) Stop: 10/28/19 04:54 Al Hydrox/Mg Hydrox/Simethicone (Maalox) 30 ml PO Q4HR PRN PRN Reason: GI DISTRESS Stop: 10/28/19 02:35 Albuterol/Ipratropium (Duoneb Neb) 3 ml HHN Q6HRT [facility] Stop: 10/28/19 05:59 Last Admin: 08/30/19 12:46 Dose: Not Given Aspirin (Aspirin Chewable) 81 mg PO DAILY [facility] Stop: 10/28/19 08:59 Last Admin: 08/30/19 08:24 Dose: 81 mg Dextrose (Glutose 40%) 18.75 gm PO PRN PRN PRN Reason: Blood Glucose less than 70 Stop: 10/28/19 03:51 Docusate Sodium (Colace) 100 mg PO BID [facility] Stop: 10/28/19 08:59 Last Admin: 08/30/19 16:23 Dose: 100 mg Duloxetine HCl (Cymbalta) 60 mg PO DAILY [facility] Stop: 10/28/19 08:59 Last Admin: 08/30/19 08:25 Dose: 60 mg Furosemide (Lasix) 20 mg PO DAILY [facility] Stop: 10/28/19 08:59 Last Admin: 08/30/19 08:25 Dose: 20 mg Gabapentin (Neurontin) 300 mg PO DAILY [facility] Stop: 10/28/19 08:59 Last Admin: 08/30/19 08:25 Dose: 300 mg Glucagon (Glucagen) 1 mg IM PRN PRN PRN Reason: Blood Glucose less than 70 Stop: 10/28/19 03:51 Insulin Glargine (Lantus Insulin) 26 units SUBQ HS [facility] Stop: 10/28/19 20:59 Last Admin: 08/29/19 20:45 Dose: 26 unit Insulin Human Lispro (Humalog Insulin Sliding Scale) 0 units SUBQ [facility]; Protocol Stop: 10/28/19 07:29 Last Admin: 08/30/19 16:23 Dose: 2 units Levothyroxine Sodium (Synthroid) 0.025 mg PO QDAC [facility] Stop: 10/28/19 07:29 Last Admin: 08/30/19 06:37 Dose: 0.025 mg Lorazepam (Ativan) 0.5 mg PO Q4HR PRN; Protocol PRN Reason: Anxiety Stop: 09/28/19 02:35 Magnesium Hydroxide (Milk Of Magnesia) 30 ml PO HS PRN PRN Reason: Constipation Metoprolol Succinate (Toprol Xl) 50 mg PO DAILY [facility] Stop: 10/28/19 08:59 Last Admin: 08/30/19 08:26 Dose: 50 mg Potassium Chloride (Klor-Con) 20 meq PO DAILY [facility] Stop: 10/28/19 08:59 Last Admin: 08/30/19 08:26 Dose: 20 meq Quetiapine Fumarate (Seroquel) 100 mg PO BID [facility]; Protocol Stop: 10/28/19 08:59 Last Admin: 08/30/19 16:23 Dose: 100 mg Quetiapine Fumarate (Seroquel) 300 mg PO HS [facility]; Protocol Stop: 10/28/19 20:59 Last Admin: 08/29/19 20:30 Dose: 300 mg Temazepam (Restoril) 15 mg PO [facility] Stop: 10/28/19 20:59 Last Admin: 08/29/19 21:24 Dose: 15 mg Tolterodine Tartrate (Detrol) 4 mg PO DAILY [facility] Stop: 10/28/19 08:59 Last Admin: 08/30/19 08:26 Dose: 4 mg Valproate Sodium (Depakene) 250 mg PO BID [facility]; Protocol Stop: 10/28/19 08:59 Last Admin: 08/30/19 16:23 Dose: 250 mg General: demented HEENT: NC/AT, PERRLA, EOMI, anicteric sclerae, throat clear Neck: Supple, No JVD, No thyromegaly, +2 carotid pulse wo bruit, No LAD Lungs: CTAB Cardiovascular: RRR, Normal S1, Normal S2, without murmur Abdomen: soft, non-tender, non-distended Extremities: clear Neurological: no change Internal Medicine Assmt/Plan - Assessment Assessment: 1.HTN. 2.DM. 3.HYPOTHYROIDISM 4.PSYCHOSIS - Plan Plan: CONTINUE ON CURRENT MEDICATION AND DIET
--- NOTE | 2019-08-30 20:07 | Progress Notes ---
DATE: 08/30/2019 SUBJECTIVE: Chart was reviewed and the patient interviewed. Also discussed the patient's condition with the staff and reviewed the records and labs. The patient is still "don't feel good." She still seems to be in a depressed mood and she is still withdrawn and anxious. The patient also still feeling hopeless and helpless. The patient also still has severe mood swings with periods of agitation and irritability. Otherwise, the patient is compliant with taking her medications with no side effects of medications. She is still somehow suspicious and paranoid, but no major behavioral issues while in the hospital. The patient is going around on a wheelchair with no problems. TREATMENT PLAN: We will monitor the patient's behavior and condition closely. The patient also continued to take Depakote and Depakote blood level is pending. At the same time, we will continue to follow up closely. PSYCHIATRIC# [id number]
[2019-08-30] MEDS: Insulin Glargine 100 units/ml 10ml Vial SUBQ SCH (21:12)
[2019-08-31] MEDS: Albuterol/Ipratropium Neb 3 ML AERS HHN SCH ×4 (01:05→19:03)
[2019-08-31] MEDS: Levothyroxine 0.025 Mg Tab PO SCH (06:52)
[2019-08-31] MEDS: INSULIN LISPRO SLIDING SCALE 100 UNITS/ML UNIT SUBQ SCH ×4 (06:54→21:11)
[2019-08-31] MEDS: Aspirin 81mg Chewable Tab PO SCH (08:48)
[2019-08-31] MEDS: Potassium Chloride 20 mEq ER Tab PO SCH (08:49)
--- NOTE | 2019-08-31 15:07 | General Progress Note ---
Subjective - Review of Systems Service Date: 08/31/19 Subjective: resting comfortably no distress Objective - Results Recent Labs: Laboratory Last Values POC Glucose 258 MG/DL (70 - 105) H 08/30/19 20:27 - Physical Exam Vitals and I&O: Vital Signs Temp 96.9 F 08/31/19 14:37 Pulse 92 08/31/19 14:37 Resp 20 08/31/19 14:37 BP 125/72 08/31/19 14:37 Pulse Ox 98 08/31/19 14:37 Intake & Output 08/30/19 08/31/19 08/31/19 18:59 06:59 18:59 Intake Total 1000 480 Output Total 1 Balance 1000 479 Intake: Oral 1000 480 Output: Urine/Stool Mix 1 Other: # Voids 4 1 # Bowel Movements 1 Active Medications: Current Medications Acetaminophen (Tylenol) 650 mg PO Q4H PRN PRN Reason: Pain (Mild 1-3) Stop: 10/28/19 02:35 Last Admin: 08/30/19 07:00 Dose: 650 mg Acetaminophen/Hydrocodone Bitart ([place] 10 Mg/325 Mg) 1 tab PO Q4H PRN PRN Reason: Pain (Severe 7-10) Stop: 10/28/19 04:54 Last Admin: 08/31/19 06:52 Dose: 1 tab Al Hydrox/Mg Hydrox/Simethicone (Maalox) 30 ml PO Q4HR PRN PRN Reason: GI DISTRESS Stop: 10/28/19 02:35 Albuterol/Ipratropium (Duoneb Neb) 3 ml HHN Q6HRT [facility] Stop: 10/28/19 05:59 Last Admin: 08/31/19 12:42 Dose: Not Given Aspirin (Aspirin Chewable) 81 mg PO DAILY [facility] Stop: 10/28/19 08:59 Last Admin: 08/31/19 08:48 Dose: 81 mg Dextrose (Glutose 40%) 18.75 gm PO PRN PRN PRN Reason: Blood Glucose less than 70 Stop: 10/28/19 03:51 Docusate Sodium (Colace) 100 mg PO BID [facility] Stop: 10/28/19 08:59 Last Admin: 08/31/19 08:48 Dose: 100 mg Duloxetine HCl (Cymbalta) 60 mg PO DAILY [facility] Stop: 10/28/19 08:59 Last Admin: 08/31/19 08:48 Dose: 60 mg Furosemide (Lasix) 20 mg PO DAILY [facility] Stop: 10/28/19 08:59 Last Admin: 08/31/19 08:48 Dose: 20 mg Gabapentin (Neurontin) 300 mg PO DAILY [facility] Stop: 10/28/19 08:59 Last Admin: 08/31/19 08:48 Dose: 300 mg Glucagon (Glucagen) 1 mg IM PRN PRN PRN Reason: Blood Glucose less than 70 Stop: 10/28/19 03:51 Insulin Glargine (Lantus Insulin) 26 units SUBQ HS [facility] Stop: 10/28/19 20:59 Last Admin: 08/30/19 21:12 Dose: 26 unit Insulin Human Lispro (Humalog Insulin Sliding Scale) 0 units SUBQ [facility]; Protocol Stop: 10/28/19 07:29 Last Admin: 08/31/19 11:22 Dose: 2 units Levothyroxine Sodium (Synthroid) 0.025 mg PO QDAC [facility] Stop: 10/28/19 07:29 Last Admin: 08/31/19 06:52 Dose: 0.025 mg Lorazepam (Ativan) 0.5 mg PO Q4HR PRN; Protocol PRN Reason: Anxiety Stop: 09/28/19 02:35 Magnesium Hydroxide (Milk Of Magnesia) 30 ml PO HS PRN PRN Reason: Constipation Metoprolol Succinate (Toprol Xl) 50 mg PO DAILY [facility] Stop: 10/28/19 08:59 Last Admin: 08/31/19 08:48 Dose: 50 mg Potassium Chloride (Klor-Con) 20 meq PO DAILY [facility] Stop: 10/28/19 08:59 Last Admin: 08/31/19 08:49 Dose: 20 meq Quetiapine Fumarate (Seroquel) 100 mg PO BID [facility]; Protocol Stop: 10/28/19 08:59 Last Admin: 08/31/19 08:49 Dose: 100 mg Quetiapine Fumarate (Seroquel) 300 mg PO HS [facility]; Protocol Stop: 10/28/19 20:59 Last Admin: 08/30/19 20:31 Dose: 300 mg Temazepam (Restoril) 15 mg PO [facility] Stop: 10/28/19 20:59 Last Admin: 02/28/20 20:31 Dose: 15 mg Tolterodine Tartrate (Detrol) 4 mg PO DAILY [facility] Stop: 10/28/19 08:59 Last Admin: 08/31/19 08:49 Dose: 4 mg Valproate Sodium (Depakene) 250 mg PO BID [facility]; Protocol Stop: 10/28/19 08:59 Last Admin: 08/31/19 08:49 Dose: 250 mg General: No acute distress HEENT: Atraumatic, PERRLA Neck: Supple, JVD, Thyromegaly Cardiovascular: Regular rate, Normal S1, Normal S2 Lungs: Clear to auscultation Abdomen: Bowel sounds, Soft Assessment/Plan - Assessment Assessment: 1.HTN. 2.DM. 3.HYPOTHYROIDISM 4.PSYCHOSIS - Plan Plan: continue current treatment
[2019-08-31] MEDS: Insulin Glargine 100 units/ml 10ml Vial SUBQ SCH (21:01)
[2019-09-01] MEDS: Albuterol/Ipratropium Neb 3 ML AERS HHN SCH ×4 (01:02→20:00)
--- NOTE | 2019-09-01 06:47 | Psych Progress Note ---
Psych Progress Note - Intro Date of Progress Note: 08/31/19 - Assessment Assessment: Irvin interviewed, case discussed with staff, chart and records were reviewed. Patient is anxious irritable and uncooperative overall. This morning she is more pleasant and greets provider. She is not willing to engage much with the interview. No side effects noted. No plan for self care. - Vitals, I&O Vitals: Vital Signs - 24 hr 08/31/19 08/31/19 08/31/19 08:48 14:37 20:41 Temp 96.9 F 98.9 F HR 98 92 104 RR 20 20 BP 143/77 125/72 130/70 O2 Sat % 98 98 09/01/19 06:16 Temp 98.1 F HR 107 RR 20 BP 127/73 O2 Sat % 96 - Objective Psych General Appearance: Report: Clean Psych Behavior: Report: Calm, Uncooperative Psych Speech: Report: Mumbled Psych Mood: Report: Euthymic Psych Affect: Report: Labile Psych Thought Process: Report: Loose Associations Psych Cognition: Report: Confused Psych Insight: Report: Impaired Psych Judgement: Report: Impaired - Plan Plan: continue current treatment plan. observe for side effects and behaviors. - Review of Relevant Data Review of Relevant Data: I have reviewed the following items and time gretta (where applicable) has been applied. - Medications Current Medications: Current Medications Acetaminophen (Tylenol) 650 mg PO Q4H PRN PRN Reason: Pain (Mild 1-3) Stop: 10/28/19 02:35 Last Admin: 08/30/19 07:00 Dose: 650 mg Acetaminophen/Hydrocodone Bitart ([place] 10 Mg/325 Mg) 1 tab PO Q4H PRN PRN Reason: Pain (Severe 7-10) Stop: 10/28/19 04:54 Last Admin: 08/31/19 06:52 Dose: 1 tab Al Hydrox/Mg Hydrox/Simethicone (Maalox) 30 ml PO Q4HR PRN PRN Reason: GI DISTRESS Stop: 10/28/19 02:35 Albuterol/Ipratropium (Duoneb Neb) 3 ml HHN Q6HRT [facility] Stop: 10/28/19 05:59 Last Admin: 08/31/19 12:42 Dose: Not Given Aspirin (Aspirin Chewable) 81 mg PO DAILY [facility] Stop: 10/28/19 08:59 Last Admin: 08/31/19 08:48 Dose: 81 mg Dextrose (Glutose 40%) 18.75 gm PO PRN PRN PRN Reason: Blood Glucose less than 70 Stop: 10/28/19 03:51 Docusate Sodium (Colace) 100 mg PO BID [facility] Stop: 10/28/19 08:59 Last Admin: 08/31/19 16:53 Dose: 100 mg Duloxetine HCl (Cymbalta) 60 mg PO DAILY [facility] Stop: 10/28/19 08:59 Last Admin: 08/31/19 08:48 Dose: 60 mg Furosemide (Lasix) 20 mg PO DAILY [facility] Stop: 10/28/19 08:59 Last Admin: 08/31/19 08:48 Dose: 20 mg Gabapentin (Neurontin) 300 mg PO DAILY [facility] Stop: 10/28/19 08:59 Last Admin: 08/31/19 08:48 Dose: 300 mg Glucagon (Glucagen) 1 mg IM PRN PRN PRN Reason: Blood Glucose less than 70 Stop: 10/28/19 03:51 Insulin Glargine (Lantus Insulin) 26 units SUBQ HS [facility] Stop: 10/28/19 20:59 Last Admin: 08/31/19 21:01 Dose: 26 unit Insulin Human Lispro (Humalog Insulin Sliding Scale) 0 units SUBQ [facility]; Protocol Stop: 10/28/19 07:29 Last Admin: 08/31/19 21:11 Dose: Not Given Levothyroxine Sodium (Synthroid) 0.025 mg PO QDAC [facility] Stop: 10/28/19 07:29 Last Admin: 08/31/19 06:52 Dose: 0.025 mg Lorazepam (Ativan) 0.5 mg PO Q4HR PRN; Protocol PRN Reason: Anxiety Stop: 09/28/19 02:35 Magnesium Hydroxide (Milk Of Magnesia) 30 ml PO HS PRN PRN Reason: Constipation Metoprolol Succinate (Toprol Xl) 50 mg PO DAILY [facility] Stop: 10/28/19 08:59 Last Admin: 08/31/19 08:48 Dose: 50 mg Potassium Chloride (Klor-Con) 20 meq PO DAILY [facility] Stop: 10/28/19 08:59 Last Admin: 08/31/19 08:49 Dose: 20 meq Quetiapine Fumarate (Seroquel) 100 mg PO BID [facility]; Protocol Stop: 10/28/19 08:59 Last Admin: 08/31/19 16:53 Dose: 100 mg Quetiapine Fumarate (Seroquel) 300 mg PO HS [facility]; Protocol Stop: 10/28/19 20:59 Last Admin: 08/31/19 21:00 Dose: 300 mg Temazepam (Restoril) 15 mg PO HS [facility] Stop: 10/28/19 20:59 Last Admin: 08/31/19 21:00 Dose: 15 mg Tolterodine Tartrate (Detrol) 4 mg PO DAILY [facility] Stop: 10/28/19 08:59 Last Admin: 08/31/19 08:49 Dose: 4 mg Valproate Sodium (Depakene) 250 mg PO BID [facility]; Protocol Stop: 10/28/19 08:59 Last Admin: 08/31/19 16:53 Dose: 250 mg
[2019-09-01] MEDS: Levothyroxine 0.025 Mg Tab PO SCH (06:52)
[2019-09-01] MEDS: INSULIN LISPRO SLIDING SCALE 100 UNITS/ML UNIT SUBQ SCH ×4 (06:52→21:53)
[2019-09-01] MEDS: Potassium Chloride 20 mEq ER Tab PO SCH (09:01)
[2019-09-01] MEDS: Aspirin 81mg Chewable Tab PO SCH (09:01)
--- NOTE | 2019-09-01 14:15 | General Progress Note ---
Subjective - Review of Systems Service Date: 09/01/19 Subjective: resting comfortably no distress Objective - Results Recent Labs: Laboratory Last Values POC Glucose 135 MG/DL (70 - 105) H 09/01/19 11:26 - Physical Exam Vitals and I&O: Vital Signs Temp 98.1 F 09/01/19 06:16 Pulse 107 09/01/19 09:02 Resp 20 09/01/19 06:16 BP 127/73 09/01/19 09:02 Pulse Ox 96 09/01/19 06:16 Intake & Output 08/31/19 09/01/19 09/01/19 18:59 06:59 18:59 Intake Total 720 240 Balance 720 240 Intake: Oral 720 240 Other: # Voids 3 2 # Bowel Movements 1 Active Medications: Current Medications Acetaminophen (Tylenol) 650 mg PO Q4H PRN PRN Reason: Pain (Mild 1-3) Stop: 10/28/19 02:35 Last Admin: 08/30/19 07:00 Dose: 650 mg Acetaminophen/Hydrocodone Bitart ([place] 10 Mg/325 Mg) 1 tab PO Q4H PRN PRN Reason: Pain (Severe 7-10) Stop: 10/28/19 04:54 Last Admin: 08/31/19 06:52 Dose: 1 tab Al Hydrox/Mg Hydrox/Simethicone (Maalox) 30 ml PO Q4HR PRN PRN Reason: GI DISTRESS Stop: 10/28/19 02:35 Albuterol/Ipratropium (Duoneb Neb) 3 ml HHN Q6HRT [facility] Stop: 10/28/19 05:59 Last Admin: 09/01/19 07:02 Dose: Not Given Aspirin (Aspirin Chewable) 81 mg PO DAILY [facility] Stop: 10/28/19 08:59 Last Admin: 09/01/19 09:01 Dose: 81 mg Dextrose (Glutose 40%) 18.75 gm PO PRN PRN PRN Reason: Blood Glucose less than 70 Stop: 10/28/19 03:51 Docusate Sodium (Colace) 100 mg PO BID [facility] Stop: 10/28/19 08:59 Last Admin: 09/01/19 09:01 Dose: 100 mg Duloxetine HCl (Cymbalta) 60 mg PO DAILY [facility] Stop: 10/28/19 08:59 Last Admin: 09/01/19 09:02 Dose: 60 mg Furosemide (Lasix) 20 mg PO DAILY [facility] Stop: 10/28/19 08:59 Last Admin: 09/01/19 09:02 Dose: 20 mg Gabapentin (Neurontin) 300 mg PO DAILY [facility] Stop: 10/28/19 08:59 Last Admin: 09/01/19 09:02 Dose: 300 mg Glucagon (Glucagen) 1 mg IM PRN PRN PRN Reason: Blood Glucose less than 70 Stop: 10/28/19 03:51 Insulin Glargine (Lantus Insulin) 26 units SUBQ HS [facility] Stop: 10/28/19 20:59 Last Admin: 08/31/19 21:01 Dose: 26 unit Insulin Human Lispro (Humalog Insulin Sliding Scale) 0 units SUBQ [facility]; Protocol Stop: 10/28/19 07:29 Last Admin: 09/01/19 11:32 Dose: Not Given Levothyroxine Sodium (Synthroid) 0.025 mg PO QDAC [facility] Stop: 10/28/19 07:29 Last Admin: 09/01/19 06:52 Dose: 0.025 mg Lorazepam (Ativan) 0.5 mg PO Q4HR PRN; Protocol PRN Reason: Anxiety Stop: 09/28/19 02:35 Magnesium Hydroxide (Milk Of Magnesia) 30 ml PO HS PRN PRN Reason: Constipation Metoprolol Succinate (Toprol Xl) 50 mg PO DAILY [facility] Stop: 10/28/19 08:59 Last Admin: 09/01/19 09:02 Dose: 50 mg Potassium Chloride (Klor-Con) 20 meq PO DAILY [facility] Stop: 10/28/19 08:59 Last Admin: 09/01/19 09:01 Dose: 20 meq Quetiapine Fumarate (Seroquel) 100 mg PO BID [facility]; Protocol Stop: 10/28/19 08:59 Last Admin: 09/01/19 09:01 Dose: 100 mg Quetiapine Fumarate (Seroquel) 300 mg PO HS [facility]; Protocol Stop: 10/28/19 20:59 Last Admin: 08/31/19 21:00 Dose: 300 mg Temazepam (Restoril) 15 mg PO [facility] Stop: 10/28/19 20:59 Last Admin: 08/31/19 21:00 Dose: 15 mg Tolterodine Tartrate (Detrol) 4 mg PO DAILY [facility] Stop: 10/28/19 08:59 Last Admin: 09/01/19 09:01 Dose: 4 mg Valproate Sodium (Depakene) 250 mg PO BID [facility]; Protocol Stop: 10/28/19 08:59 Last Admin: 09/01/19 09:01 Dose: 250 mg General: No acute distress HEENT: Atraumatic, PERRLA Neck: Supple, JVD, Thyromegaly Cardiovascular: Regular rate, Normal S1, Normal S2 Lungs: Clear to auscultation Abdomen: Bowel sounds, Soft Assessment/Plan - Assessment Assessment: 1.HTN. 2.DM. 3.HYPOTHYROIDISM 4.PSYCHOSIS - Plan Plan: continue current treatment
[2019-09-01] MEDS: Insulin Glargine 100 units/ml 10ml Vial SUBQ SCH (21:52)
[2019-09-02] MEDS: Albuterol/Ipratropium Neb 3 ML AERS HHN SCH ×4 (01:00→20:00)
--- NOTE | 2019-09-02 06:49 | Psych Progress Note ---
Psych Progress Note - Intro Date of Progress Note: 09/01/19 - Assessment Assessment: Irvin interviewed, case discussed with staff, chart and records were reviewed. Patient is anxious irritable and uncooperative overall. This morning she is more pleasant and greets provider. She does get impulsively angered towards another patient "get out of here!" She is not willing to engage much with the interview. No side effects noted. No plan for self care. - Vitals, I&O Vitals: Vital Signs - 24 hr 09/01/19 09/01/19 09/01/19 09:02 15:17 19:47 Temp 98.0 F 97.6 F HR 107 93 88 RR 20 19 BP 127/73 111/72 101/66 O2 Sat % 96 96 09/02/19 05:52 Temp 98.6 F HR 85 RR 19 BP 117/65 O2 Sat % 94 - Objective Psych General Appearance: Report: Clean Psych Behavior: Report: Calm, Uncooperative Psych Speech: Report: Mumbled Psych Mood: Report: Euthymic Psych Affect: Report: Labile Psych Thought Process: Report: Loose Associations Psych Cognition: Report: Confused Psych Insight: Report: Impaired Psych Judgement: Report: Impaired - Plan Plan: continue current treatment plan. observe for side effects and behaviors. - Review of Relevant Data Review of Relevant Data: I have reviewed the following items and time gretta (where applicable) has been applied. - Medications Current Medications: Current Medications Acetaminophen (Tylenol) 650 mg PO Q4H PRN PRN Reason: Pain (Mild 1-3) Stop: 10/28/19 02:35 Last Admin: 08/30/19 07:00 Dose: 650 mg Acetaminophen/Hydrocodone Bitart ([place] 10 Mg/325 Mg) 1 tab PO Q4H PRN PRN Reason: Pain (Severe 7-10) Stop: 10/28/19 04:54 Last Admin: 08/31/19 06:52 Dose: 1 tab Al Hydrox/Mg Hydrox/Simethicone (Maalox) 30 ml PO Q4HR PRN PRN Reason: GI DISTRESS Stop: 10/28/19 02:35 Albuterol/Ipratropium (Duoneb Neb) 3 ml HHN Q6HRT [facility] Stop: 10/28/19 05:59 Last Admin: 09/01/19 20:00 Dose: Not Given Aspirin (Aspirin Chewable) 81 mg PO DAILY [facility] Stop: 10/28/19 08:59 Last Admin: 09/01/19 09:01 Dose: 81 mg Dextrose (Glutose 40%) 18.75 gm PO PRN PRN PRN Reason: Blood Glucose less than 70 Stop: 10/28/19 03:51 Docusate Sodium (Colace) 100 mg PO BID [facility] Stop: 10/28/19 08:59 Last Admin: 09/01/19 17:16 Dose: 100 mg Duloxetine HCl (Cymbalta) 60 mg PO DAILY [facility] Stop: 10/28/19 08:59 Last Admin: 09/01/19 09:02 Dose: 60 mg Furosemide (Lasix) 20 mg PO DAILY [facility] Stop: 10/28/19 08:59 Last Admin: 09/01/19 09:02 Dose: 20 mg Gabapentin (Neurontin) 300 mg PO DAILY [facility] Stop: 10/28/19 08:59 Last Admin: 09/01/19 09:02 Dose: 300 mg Glucagon (Glucagen) 1 mg IM PRN PRN PRN Reason: Blood Glucose less than 70 Stop: 10/28/19 03:51 Insulin Glargine (Lantus Insulin) 26 units SUBQ HS [facility] Stop: 10/28/19 20:59 Last Admin: 09/01/19 21:52 Dose: 26 unit Insulin Human Lispro (Humalog Insulin Sliding Scale) 0 units SUBQ ACHS [facility]; Protocol Stop: 10/28/19 07:29 Last Admin: 09/01/19 21:53 Dose: 2 units Levothyroxine Sodium (Synthroid) 0.025 mg PO QDAC [facility] Stop: 10/28/19 07:29 Last Admin: 09/01/19 06:52 Dose: 0.025 mg Lorazepam (Ativan) 0.5 mg PO Q4HR PRN; Protocol PRN Reason: Anxiety Stop: 09/28/19 02:35 Magnesium Hydroxide (Milk Of Magnesia) 30 ml PO HS PRN PRN Reason: Constipation Metoprolol Succinate (Toprol Xl) 50 mg PO DAILY [facility] Stop: 10/28/19 08:59 Last Admin: 09/01/19 09:02 Dose: 50 mg Potassium Chloride (Klor-Con) 20 meq PO DAILY [facility] Stop: 10/28/19 08:59 Last Admin: 09/01/19 09:01 Dose: 20 meq Quetiapine Fumarate (Seroquel) 100 mg PO BID [facility]; Protocol Stop: 10/28/19 08:59 Last Admin: 09/01/19 17:16 Dose: 100 mg Quetiapine Fumarate (Seroquel) 300 mg PO HS [facility]; Protocol Stop: 10/28/19 20:59 Last Admin: 09/01/19 21:55 Dose: 300 mg Temazepam (Restoril) 15 mg PO HS [facility] Stop: 10/28/19 20:59 Last Admin: 09/01/19 21:55 Dose: 15 mg Tolterodine Tartrate (Detrol) 4 mg PO DAILY [facility] Stop: 10/28/19 08:59 Last Admin: 09/01/19 09:01 Dose: 4 mg Valproate Sodium (Depakene) 250 mg PO BID [facility]; Protocol Stop: 10/28/19 08:59 Last Admin: 09/01/19 17:16 Dose: 250 mg
[2019-09-02] MEDS: INSULIN LISPRO SLIDING SCALE 100 UNITS/ML UNIT SUBQ SCH ×4 (07:12→21:01)
[2019-09-02] MEDS: Levothyroxine 0.025 Mg Tab PO SCH (07:13)
[2019-09-02] MEDS: Aspirin 81mg Chewable Tab PO SCH (08:55)
[2019-09-02] MEDS: Potassium Chloride 20 mEq ER Tab PO SCH (08:55)
--- NOTE | 2019-09-02 10:32 | Progress Notes ---
DATE: 09/02/2019 SUBJECTIVE: Chart was reviewed and the patient interviewed. Also discussed the patient's condition with the staff and reviewed records and labs. The patient continued to be anxious and she still had episodes of irritability, but at the same time today, she seems to be calmer and trying to interact more. She also still seems to be depressed and she isolates herself. She has been cooperative and she has been compliant with her treatment. The patient continues to take Depakote as well as Seroquel and Neurontin with no side effects. During interview, the patient seems to be depressed with poor eye contact and low tone and rate of speech. ASSESSMENT: The patient is still psychotic and at the same time depressed. TREATMENT PLAN: We will continue monitoring her behavior and her condition closely. Also, we will try to reduce the amount of the Seroquel that she is taking and we will decrease Seroquel to 50 mg twice a day and 200 mg at bedtime. Also, we will increase Neurontin to 300 mg twice a day and continue to follow up closely. [facility]# [id number]
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
[2019-09-02] MEDS: Insulin Glargine 100 units/ml 10ml Vial SUBQ SCH (21:00)
[2019-09-03] MEDS: Albuterol/Ipratropium Neb 3 ML AERS HHN SCH ×3 (02:00→12:31)
[2019-09-03] MEDS: INSULIN LISPRO SLIDING SCALE 100 UNITS/ML UNIT SUBQ SCH ×4 (07:25→21:00)
[2019-09-03] MEDS: Levothyroxine 0.025 Mg Tab PO SCH (07:25)
[2019-09-03] MEDS: Potassium Chloride 20 mEq ER Tab PO SCH (09:07)
[2019-09-03] MEDS: Aspirin 81mg Chewable Tab PO SCH (09:08)
--- NOTE | 2019-09-03 10:47 | Progress Notes ---
DATE: SUBJECTIVE: Chart reviewed and the patient interviewed. Also discussed the patient's condition with the staff and reviewed records and labs. The patient is still anxious and is still suspicious and paranoid and withdrawn, but at the same time, she is cooperative and compliant with taking her medications. The patient also is isolative with minimal interaction with others and seems to be depressed about. She denies any intention to harm herself or others. She also seems to be less agitated and less irritable. She still has mood swings and tends to stay by herself in her room most of the time. Otherwise, the patient continued to comply with taking her medications including duloxetine, Depakote and Seroquel. ASSESSMENT: The patient is still depressed and slightly psychotic. TREATMENT PLAN: I decreased her Seroquel yesterday. We will continue current dose. We will continue monitoring her behavior and her condition and we will continue to follow up. [facility]# [id number]
[2019-09-03] MEDS: Insulin Glargine 100 units/ml 10ml Vial SUBQ SCH (20:56)
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
[2019-09-04] MEDS: Albuterol/Ipratropium Neb 3 ML AERS HHN SCH ×4 (01:15→19:30)
[2019-09-04] MEDS: INSULIN LISPRO SLIDING SCALE 100 UNITS/ML UNIT SUBQ SCH ×4 (06:40→21:26)
[2019-09-04] MEDS: Aspirin 81mg Chewable Tab PO SCH (09:05)
[2019-09-04] MEDS: Levothyroxine 0.025 Mg Tab PO SCH (09:05)
[2019-09-04] MEDS: Potassium Chloride 20 mEq ER Tab PO SCH (09:06)
--- NOTE | 2019-09-04 16:37 | Progress Notes ---
DATE: 09/04/2019 SUBJECTIVE: Chart was reviewed and the patient interviewed. Also discussed the patient's condition with the staff and reviewed records and labs. The patient continued to be in a depressed mood. The patient also is still feeling hopeless and helpless, but she denies any intention to harm herself. She also is withdrawn and guarded and does not get much out of her room. MENTAL STATUS EXAMINATION: During the interview, the patient kept her eyes closed and she was not communicating much except that saying that she is still depressed and answers questions minimally. She is also still saying that she is feeling hopeless, but not suicidal. The patient also denies any hallucinations or delusions. ASSESSMENT: The patient is still severely depressed. TREATMENT PLAN: Continue to monitor the patient's behavior and condition closely. Also, continue adjusting psychotropic medications and work on supportive therapy and her ineffective coping. [facility]# [id number]
[2019-09-04] MEDS: Insulin Glargine 100 units/ml 10ml Vial SUBQ SCH (21:25)
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
[2019-09-05] MEDS: Albuterol/Ipratropium Neb 3 ML AERS HHN SCH ×4 (01:30→18:12)
[2019-09-05] MEDS: INSULIN LISPRO SLIDING SCALE 100 UNITS/ML UNIT SUBQ SCH ×4 (06:38→21:59)
[2019-09-05] MEDS: Levothyroxine 0.025 Mg Tab PO SCH (06:39)
--- NOTE | 2019-09-05 07:37 | Progress Notes ---
DATE: SUBJECTIVE: Chart was reviewed and the patient interviewed. Also discussed the patient's condition with the staff and reviewed records and labs. The patient's affect is brighter. The patient is less depressed and less irritable. She also was smiling appropriately during my interview. The patient also denies any intention to harm herself or others. The patient denies any suicidal or homicidal ideations. MENTAL STATUS EXAMINATION: Unkempt. Anxious. Cooperative. Mood not depressed nor elated, but at times the patient smiled appropriately. She denied suicidal or homicidal ideations and she denies any hallucinations or delusions. ASSESSMENT: The patient showing improvement and she is not as depressed or suicidal or homicidal. This is the first patient that shows improvement. TREATMENT PLAN: We will monitor her condition and planning to discharge the patient tomorrow if she continues to improve. JOB# [id number]
[2019-09-05] MEDS: Potassium Chloride 20 mEq ER Tab PO SCH (09:21)
[2019-09-05] MEDS: Aspirin 81mg Chewable Tab PO SCH (09:22)
--- NOTE | 2019-09-05 18:18 | Internal Medicine Prog Note ---
Internal Medicine Subjective - Subjective Service Date: 09/05/19 Patient seen and examined:: without staff (she feels well) Patient is:: awake, verbal, ambulating, talking, confused Per staff patient has:: no adverse event, confused Internal Medicine Objective - Results Recent Labs: Laboratory Last Values POC Glucose 112 MG/DL (70 - 105) H 09/04/19 06:27 - Physical Exam Vitals and I&O: Vital Signs Temp 98.0 F 09/05/19 14:00 Pulse 79 09/05/19 14:00 Resp 18 09/05/19 14:00 BP 125/55 09/05/19 14:00 Pulse Ox 96 09/05/19 14:00 Intake & Output 09/04/19 09/05/19 09/05/19 18:59 06:59 18:59 Intake Total 857 831 5883 Balance 735 830 0059 Intake: Oral 139 094 6636 Other: # Voids 2 4 # Bowel Movements 0 1 Active Medications: Current Medications Acetaminophen (Tylenol) 650 mg PO Q4H PRN PRN Reason: Pain (Mild 1-3) Stop: 10/28/19 02:35 Last Admin: 09/04/19 21:02 Dose: 650 mg Acetaminophen/Hydrocodone Bitart ([place] 10 Mg/325 Mg) 1 tab PO Q4H PRN PRN Reason: Pain (Severe 7-10) Stop: 10/28/19 04:54 Last Admin: 08/31/19 06:52 Dose: 1 tab Al Hydrox/Mg Hydrox/Simethicone (Maalox) 30 ml PO Q4HR PRN PRN Reason: GI DISTRESS Stop: 10/28/19 02:35 Albuterol/Ipratropium (Duoneb Neb) 3 ml HHN Q6HRT [facility] Stop: 10/28/19 05:59 Last Admin: 09/05/19 18:12 Dose: Not Given Aspirin (Aspirin Chewable) 81 mg PO DAILY [facility] Stop: 10/28/19 08:59 Last Admin: 09/05/19 09:22 Dose: 81 mg Dextrose (Glutose 40%) 18.75 gm PO PRN PRN PRN Reason: Blood Glucose less than 70 Stop: 10/28/19 03:51 Docusate Sodium (Colace) 100 mg PO BID [facility] Stop: 10/28/19 08:59 Last Admin: 09/05/19 16:58 Dose: 100 mg Duloxetine HCl (Cymbalta) 60 mg PO DAILY [facility] Stop: 10/28/19 08:59 Last Admin: 09/05/19 09:21 Dose: 60 mg Furosemide (Lasix) 20 mg PO DAILY [facility] Stop: 10/28/19 08:59 Last Admin: 09/05/19 09:24 Dose: 20 mg Gabapentin (Neurontin) 300 mg PO BID [facility] Stop: 11/01/19 08:59 Last Admin: 09/05/19 16:58 Dose: 300 mg Glucagon (Glucagen) 1 mg IM PRN PRN PRN Reason: Blood Glucose less than 70 Stop: 10/28/19 03:51 Insulin Glargine (Lantus Insulin) 26 units SUBQ HS [facility] Stop: 10/28/19 20:59 Last Admin: 09/04/19 21:25 Dose: 26 units Insulin Human Lispro (Humalog Insulin Sliding Scale) 0 [facility]; Protocol Stop: 10/28/19 07:29 Last Admin: 09/05/19 17:18 Dose: 2 units Levothyroxine Sodium (Synthroid) 0.025 mg PO QDAC [facility] Stop: 10/28/19 07:29 Last Admin: 09/05/19 06:39 Dose: 0.025 mg Lorazepam (Ativan) 0.5 mg PO Q4HR PRN; Protocol PRN Reason: Anxiety Stop: 09/28/19 02:35 Magnesium Hydroxide (Milk Of Magnesia) 30 ml PO HS PRN PRN Reason: Constipation Metoprolol Succinate (Toprol Xl) 50 mg PO DAILY [facility] Stop: 10/28/19 08:59 Last Admin: 09/05/19 09:23 Dose: 50 mg Potassium Chloride (Klor-Con) 20 meq PO DAILY [facility] Stop: 10/28/19 08:59 Last Admin: 09/05/19 09:21 Dose: 20 meq Quetiapine Fumarate (Seroquel) 200 mg PO HS [facility]; Protocol Stop: 11/01/19 20:59 Last Admin: 09/04/19 20:55 Dose: 200 mg Quetiapine Fumarate (Seroquel) 50 mg PO BID [facility]; Protocol Stop: 11/01/19 16:59 Last Admin: 09/05/19 16:58 Dose: 50 mg Temazepam (Restoril) 15 mg PO HS [facility] Stop: 10/28/19 20:59 Last Admin: 09/04/19 20:55 Dose: 15 mg Tolterodine Tartrate (Detrol) 4 mg PO DAILY [facility] Stop: 10/28/19 08:59 Last Admin: 09/05/19 09:20 Dose: 4 mg Valproate Sodium (Depakene) 250 mg PO BID [facility]; Protocol Stop: 10/28/19 08:59 Last Admin: 09/05/19 16:58 Dose: 250 mg General: demented HEENT: NC/AT, PERRLA, EOMI, anicteric sclerae, throat clear Neck: Supple, No JVD, No thyromegaly, +2 carotid pulse wo bruit, No LAD Lungs: CTAB Cardiovascular: RRR, Normal S1, Normal S2, without murmur Abdomen: soft, non-tender, non-distended Extremities: clear Neurological: no change Internal Medicine Assmt/Plan - Assessment Assessment: 1.HTN. 2.DM. 3.HYPOTHYROIDISM 4.PSYCHOSIS - Plan Plan: CONTINUE ON CURRENT MEDICATION AND DIET Nutritional Asmnt/Malnutr-PDOC - Dietary Evaluation Malnutrition Findings (Please click <Entered> for more info): Nutritional Asmnt/Malnutrition Start: 09/02/19 14: 18 Text: Status: Complete Freq: Protocol: Document 09/02/19 14:18 QUIQUE (Rec: 09/02/19 14:27 [email or web address] [id number]) Nutritional Asmnt/Malnutrition Patient General Information Nutritional Screening Moderate Risk Diagnosis Psychosis Pertinent Medical Hx/Surgical Hx DM, HTN, Hypothyroidism, Bladder dysfunction, Dementia, Psychosis Subjective Information Pt is a 74-year-old female admitted on 08/29 d/t agitation and verbal abuse of nursing staff. Pt is eating an estimated 52% of meals since admit date (x4 days) Per Meal/ Nutrition Activity Record. Dietary is currently providing an estimated 1500 kcals and 100 gm Pro, per Pt PO intake this is providing an estimated 780 kcals and 52gm Pro to meet 71% kcal and 100% Pro needs. PO intake fair, will continue to monitor. F/U in 3- 5 days, will reassess PO intake and add nutritional supplement if appropriate. Pt POC glucose levels are high, visited pt in room today after lunch. Pt had an apple juice on her bedside tray, educated pt on her [facility] diet and offered a milk instead. Pt understood and was fine with a milk. Spoke with pt nurse and SUPERVISOR SPEECH regarding juice and diet Rx, provided quick diet education, both understood. Spoke with pt nurse Chanda concerning A1c pending order, nurse to F/U. Per SUPERVISOR SPEECH, pt ate 25% breakfast and 75% lunch today. Anthropometrics HT: 52 WT: 169 LB (76.82 kg) ABW: 125 LB (56.70 kg) BMI: 30.91 (Obese) GI/ Skin Integrity GI: WNL, Soft, Non-tender, Round BM: 3/2 x1 I/O: 1210/Not Noted Skin: Buttocks dry scab, Dryness Castro: 18 Diet Order: Mechanical Soft, CCHO 60gm, NCS Estimated Energy Needs: (Obese , ABW) 0163-5755 kcals (20-25 kcals/ kg) 45-60g Pro (0.8-1.0 g/kg) 9605-2050 ml (25-30 ml/kg) Current Diet Order/ Nutrition Support Mechanical Soft, CCHO 60gm, NCS Pertinent Medications Maalox (PRN), Glutose 40% (PRN ), Colace, Albuterol (PRN), Lasix, Glucagen (PRN), INS-SS, Synthroid, MOM (PRN), Klor- con Pertinent Labs Current A1c Pending POC Glucose (last 24 hours): 135, 149, 189, 189,186 07/17: A1c 8.8% 07/09: Glucose 179, Alk Phos 123 , Tags 205, HDL 30 Nutritional Hx/Data Height 1.57 m Height (Calculated Centimeters) 157.5 Current Weight (lbs) 76.657 kg Weight (Calculated Kilograms) 76.7 Weight (Calculated Grams) 61492.1 [place] Body Weight 110 LB (50 kg) % [place] Body Weight 154 Body Mass Index (BMI) 30.9 Weight Status Obese GI Symptoms GI Symptoms None Last BM 3/2 x1 Skin Integrity/Comment: Skin: Buttocks dry scab, Dryness Castro: 18 Current %PO Fair (50-74%) Estimated Nutritional Goals BEE in Kcals: Adj wt of IBW Calories/Kcals/Kg 20-25 Kcals Calculated 2989-4389 Protein: Adj wt of IBW Protein g/k.8-1.0 Protein Calculated 45-60 Fluid: ml 0966-8631 ml (25-30 ml/kg) Nutritional Problem 1. Problem Problem Obesity Etiology r/t consistent energy overconsumption Signs/Symptoms: aeb BMI >30 (30.91). Malnutrition Related to Morbid Obesity Malnutrition related to morbid obesity No Intervention/Recommendation Comments 1.Continue Mechanical Soft, CCHO 60gm, NCS diet as tolerated. 2.Continue antihyperglycemic medications for glucose control per MD order. Expected Outcomes/Goals Expected Outcomes/Goals 1.PO intake to meet 75% of estimated nutritional needs. 2.Gradual weight loss (0.5-1.0 LB/week) trending toward IBW preferred. 3.Monitor PO intake, wt, nutrition related labs to trend WNL, and skin integrity to trend WNL. 4.F/U as moderate risk in 3-5 days, 09/04-09/06
[2019-09-05] MEDS: Insulin Glargine 100 units/ml 10ml Vial SUBQ SCH (21:59)
[2019-09-06] MEDS: Albuterol/Ipratropium Neb 3 ML AERS HHN SCH ×2 (01:00→06:42)
[2019-09-06] MEDS: Levothyroxine 0.025 Mg Tab PO SCH (06:40)
[2019-09-06] MEDS: INSULIN LISPRO SLIDING SCALE 100 UNITS/ML UNIT SUBQ SCH ×4 (06:40→20:42)
[2019-09-06] MEDS: Potassium Chloride 20 mEq ER Tab PO SCH (09:04)
[2019-09-06] MEDS: Aspirin 81mg Chewable Tab PO SCH (09:06)
--- NOTE | 2019-09-06 17:15 | Internal Medicine Prog Note ---
Internal Medicine Subjective - Subjective Service Date: 09/06/19 Patient seen and examined:: with staff (SHE HAS COUGH,NO SOB) Patient is:: awake, verbal, ambulating, talking, confused Per staff patient has:: no adverse event, confused Internal Medicine Objective - Results Recent Labs: Laboratory Last Values POC Glucose 128 MG/DL (70 - 105) H 09/06/19 16:19 - Physical Exam Vitals and I&O: Vital Signs Temp 97.1 F 09/06/19 15:20 Pulse 76 09/06/19 15:20 Resp 20 09/06/19 15:20 BP 130/76 09/06/19 15:20 Pulse Ox 96 09/06/19 15:20 Intake & Output 09/05/19 09/06/19 09/06/19 18:59 06:59 18:59 Intake Total 1120 240 Balance 1120 240 Intake: Oral 1120 240 Other: # Voids 4 2 # Bowel Movements 1 2 Active Medications: Current Medications Acetaminophen (Tylenol) 650 mg PO Q4H PRN PRN Reason: Pain (Mild 1-3) Stop: 10/28/19 02:35 Last Admin: 09/05/19 21:56 Dose: 650 mg Acetaminophen/Hydrocodone Bitart ([place] 10 Mg/325 Mg) 1 tab PO Q4H PRN PRN Reason: Pain (Severe 7-10) Stop: 10/28/19 04:54 Last Admin: 08/31/19 06:52 Dose: 1 tab Al Hydrox/Mg Hydrox/Simethicone (Maalox) 30 ml PO Q4HR PRN PRN Reason: GI DISTRESS Stop: 10/28/19 02:35 Aspirin (Aspirin Chewable) 81 mg PO DAILY [facility] Stop: 10/28/19 08:59 Last Admin: 09/06/19 09:06 Dose: 81 mg Dextrose (Glutose 40%) 18.75 gm PO PRN PRN PRN Reason: Blood Glucose less than 70 Stop: 10/28/19 03:51 Docusate Sodium (Colace) 100 mg PO BID [facility] Stop: 10/28/19 08:59 Last Admin: 09/06/19 16:17 Dose: 100 mg Duloxetine HCl (Cymbalta) 60 mg PO DAILY [facility] Stop: 10/28/19 08:59 Last Admin: 03/06/20 09:05 Dose: 60 mg Furosemide (Lasix) 20 mg PO DAILY [facility] Stop: 10/28/19 08:59 Last Admin: 09/06/19 09:06 Dose: Not Given Gabapentin (Neurontin) 300 mg PO BID [facility] Stop: 11/01/19 08:59 Last Admin: 09/06/19 16:17 Dose: 300 mg Glucagon (Glucagen) 1 mg IM PRN PRN PRN Reason: Blood Glucose less than 70 Stop: 10/28/19 03:51 Insulin Glargine (Lantus Insulin) 26 units SUBQ HS [facility] Stop: 10/28/19 20:59 Last Admin: 09/05/19 21:59 Dose: 26 units Insulin Human Lispro (Humalog Insulin Sliding Scale) 0 units SUBQ [facility]; Protocol Stop: 10/28/19 07:29 Last Admin: 09/06/19 16:20 Dose: Not Given Levothyroxine Sodium (Synthroid) 0.025 mg PO QDAC [facility] Stop: 10/28/19 07:29 Last Admin: 09/06/19 06:40 Dose: 0.025 mg Lorazepam (Ativan) 0.5 mg PO Q4HR PRN; Protocol PRN Reason: Anxiety Stop: 09/28/19 02:35 Magnesium Hydroxide (Milk Of Magnesia) 30 ml PO HS PRN PRN Reason: Constipation Metoprolol Succinate (Toprol Xl) 50 mg PO DAILY [facility] Stop: 10/28/19 08:59 Last Admin: 09/06/19 09:07 Dose: Not Given Potassium Chloride (Klor-Con) 20 meq PO DAILY [facility] Stop: 10/28/19 08:59 Last Admin: 09/06/19 09:04 Dose: 20 meq Quetiapine Fumarate (Seroquel) 200 mg PO HS [facility]; Protocol Stop: 11/01/19 20:59 Last Admin: 09/05/19 21:23 Dose: 200 mg Quetiapine Fumarate (Seroquel) 50 mg PO BID [facility]; Protocol Stop: 11/01/19 16:59 Last Admin: 09/06/19 16:17 Dose: 50 mg Temazepam (Restoril) 15 mg PO [facility] Stop: 10/28/19 20:59 Last Admin: 09/05/19 21:23 Dose: 15 mg Tolterodine Tartrate (Detrol) 4 mg PO DAILY [facility] Stop: 10/28/19 08:59 Last Admin: 09/06/19 09:05 Dose: 4 mg Valproate Sodium (Depakene) 250 mg PO BID [facility]; Protocol Stop: 10/28/19 08:59 Last Admin: 09/06/19 16:17 Dose: 250 mg General: demented HEENT: NC/AT, PERRLA, EOMI, anicteric sclerae, throat clear Neck: Supple, No JVD, No thyromegaly, +2 carotid pulse wo bruit, No LAD Lungs: CTAB, congested Cardiovascular: RRR, Normal S1, Normal S2, without murmur Abdomen: soft, non-tender, non-distended Extremities: clear Neurological: no change Internal Medicine Assmt/Plan - Assessment Assessment: 1.HTN. 2.DM. 3.HYPOTHYROIDISM 4.PSYCHOSIS 5.ACUTE BRONCHITIS - Plan Plan: CONTINUE ON CURRENT MEDICATION AND DIET.LEVAQUIN 750 MG PO DAILY FOR 5 DAYS AND ROBITUSSIN 10 CC PO TID. Nutritional Asmnt/Malnutr-PDOC - Dietary Evaluation Malnutrition Findings (Please click <Entered> for more info): Nutritional Asmnt/Malnutrition Start: 09/02/19 14: 18 Text: Status: Complete Freq: Protocol: Document 09/02/19 14:18 QUIQUE (Rec: 09/02/19 14:27 [email or web address] [id number]) Nutritional Asmnt/Malnutrition Patient General Information Nutritional Screening Moderate Risk Diagnosis Psychosis Pertinent Medical Hx/Surgical Hx DM, HTN, Hypothyroidism, Bladder dysfunction, Dementia, Psychosis Subjective Information Pt is a 74-year-old female admitted on 08/29 d/t agitation and verbal abuse of nursing staff. Pt is eating an estimated 52% of meals since admit date (x4 days) Per Meal/ Nutrition Activity Record. Dietary is currently providing an estimated 1500 kcals and 100 gm Pro, per Pt PO intake this is providing an estimated 780 kcals and 52gm Pro to meet 71% kcal and 100% Pro needs. PO intake fair, will continue to monitor. F/U in 3- 5 days, will reassess PO intake and add nutritional supplement if appropriate. Pt POC glucose levels are high, visited pt in room today after lunch. Pt had an apple juice on her bedside tray, educated pt on her [facility] diet and offered a milk instead. Pt understood and was fine with a milk. Spoke with pt nurse and RV REPAIRER regarding juice and diet Rx, provided quick diet education, both understood. Spoke with pt nurse Chanda concerning A1c pending order, nurse to F/U. Per RV REPAIRER, pt ate 25% breakfast and 75% lunch today. Anthropometrics HT: 52 WT: 169 LB (76.82 kg) ABW: 125 LB (56.70 kg) BMI: 30.91 (Obese) GI/ Skin Integrity GI: WNL, Soft, Non-tender, Round BM: 3/2 x1 I/O: 1210/Not Noted Skin: Buttocks dry scab, Dryness Castro: 18 Diet Order: Mechanical Soft, CCHO 60gm, NCS Estimated Energy Needs: (Obese , ABW) 9192-8345 kcals (20-25 kcals/ kg) 45-60g Pro (0.8-1.0 g/kg) 4463-3814 ml (25-30 ml/kg) Current Diet Order/ Nutrition Support Mechanical Soft, CCHO 60gm, NCS Pertinent Medications Maalox (PRN), Glutose 40% (PRN ), Colace, Albuterol (PRN), Lasix, Glucagen (PRN), INS-SS, Synthroid, MOM (PRN), Klor- con Pertinent Labs Current A1c Pending POC Glucose (last 24 hours): 135, 149, 189, 189,186 07/17: A1c 8.8% 07/09: Glucose 179, Alk Phos 123 , Tags 205, HDL 30 Nutritional Hx/Data Height 1.57 m Height (Calculated Centimeters) 157.5 Current Weight (lbs) 76.657 kg Weight (Calculated Kilograms) 76.7 Weight (Calculated Grams) 91891.1 [place] Body Weight 110 LB (50 kg) % [place] Body Weight 154 Body Mass Index (BMI) 30.9 Weight Status Obese GI Symptoms GI Symptoms None Last BM 3/2 x1 Skin Integrity/Comment: Skin: Buttocks dry scab, Dryness Castro: 18 Current %PO Fair (50-74%) Estimated Nutritional Goals BEE in Kcals: Adj wt of IBW Calories/Kcals/Kg 20-25 Kcals Calculated 6136-4361 Protein: Adj wt of IBW Protein g/k.8-1.0 Protein Calculated 45-60 Fluid: ml 9801-7692 ml (25-30 ml/kg) Nutritional Problem 1. Problem Problem Obesity Etiology r/t consistent energy overconsumption Signs/Symptoms: aeb BMI >30 (30.91). Malnutrition Related to Morbid Obesity Malnutrition related to morbid obesity No Intervention/Recommendation Comments 1.Continue Mechanical Soft, CCHO 60gm, NCS diet as tolerated. 2.Continue antihyperglycemic medications for glucose control per MD order. Expected Outcomes/Goals Expected Outcomes/Goals 1.PO intake to meet 75% of estimated nutritional needs. 2.Gradual weight loss (0.5-1.0 LB/week) trending toward IBW preferred. 3.Monitor PO intake, wt, nutrition related labs to trend WNL, and skin integrity to trend WNL. 4.F/U as moderate risk in 3-5 days, 09/04-09/06
[2019-09-06] MEDS: Codeine /Guaifenesin 200mg-20mg/10 mL UDC PO SCH (17:46)
[2019-09-06] MEDS: Insulin Glargine 100 units/ml 10ml Vial SUBQ SCH (20:41)
--- NOTE | 2019-09-06 21:09 | Progress Notes ---
DATE: 09/06/2019 SUBJECTIVE: Chart was reviewed and the patient interviewed. Also discussed the patient's condition with the staff and reviewed records and labs. The patient remains in a depressed mood. The patient also is isolative and stays by herself in the room most of the time. The patient also still has difficulty expressing her needs and difficulty to make her needs known. She also is still preoccupied and seems to be responding. ASSESSMENT: The patient is still depressed and still needs close monitoring. TREATMENT PLAN: Continue to monitor behavior and condition closely. Also, continue to work on her impulse control and paranoia. Also, working on her discharge plans. JOB# [id number]
[2019-09-07] MEDS: Codeine /Guaifenesin 200mg-20mg/10 mL UDC PO SCH ×4 (00:15→17:28)
[2019-09-07] MEDS: Levothyroxine 0.025 Mg Tab PO SCH (06:34)
[2019-09-07] MEDS: INSULIN LISPRO SLIDING SCALE 100 UNITS/ML UNIT SUBQ SCH ×4 (06:35→20:42)
[2019-09-07] MEDS: Potassium Chloride 20 mEq ER Tab PO SCH (08:12)
[2019-09-07] MEDS: Aspirin 81mg Chewable Tab PO SCH (08:14)
[2019-09-07] MEDS: Insulin Glargine 100 units/ml 10ml Vial SUBQ SCH (20:41)
--- NOTE | 2019-09-07 20:57 | Internal Medicine Prog Note ---
Internal Medicine Subjective - Subjective Service Date: 09/07/19 Patient seen and examined:: without staff (SHE IS DOING BETTER) Patient is:: awake, verbal, ambulating, talking, confused Per staff patient has:: no adverse event, confused Internal Medicine Objective - Results Recent Labs: Laboratory Last Values POC Glucose 170 MG/DL (70 - 105) H 09/07/19 20:31 - Physical Exam Vitals and I&O: Vital Signs Temp 98.1 F 09/07/19 20:40 Pulse 91 09/07/19 20:40 Resp 20 09/07/19 20:40 BP 124/72 09/07/19 20:40 Pulse Ox 95 09/07/19 20:40 Intake & Output 09/07/19 09/07/19 09/08/19 06:59 18:59 07:59 Intake Total 160 900 120 Balance 160 900 120 Intake: Oral 160 900 120 Other: # Voids 3 3 2 # Bowel Movements 0 1 0 Active Medications: Current Medications Acetaminophen (Tylenol) 650 mg PO Q4H PRN PRN Reason: Pain (Mild 1-3) Stop: 10/28/19 02:35 Last Admin: 09/07/19 17:31 Dose: 650 mg Acetaminophen/Hydrocodone Bitart ([place] 10 Mg/325 Mg) 1 tab PO Q4H PRN PRN Reason: Pain (Severe 7-10) Stop: 10/28/19 04:54 Last Admin: 08/31/19 06:52 Dose: 1 tab Al Hydrox/Mg Hydrox/Simethicone (Maalox) 30 ml PO Q4HR PRN PRN Reason: GI DISTRESS Stop: 10/28/19 02:35 Aspirin (Aspirin Chewable) 81 mg PO DAILY [facility] Stop: 10/28/19 08:59 Last Admin: 09/07/19 08:14 Dose: 81 mg Dextrose (Glutose 40%) 18.75 gm PO PRN PRN PRN Reason: Blood Glucose less than 70 Stop: 10/28/19 03:51 Docusate Sodium (Colace) 100 mg PO BID [facility] Stop: 10/28/19 08:59 Last Admin: 09/07/19 16:37 Dose: 100 mg Duloxetine HCl (Cymbalta) 60 mg PO DAILY [facility] Stop: 10/28/19 08:59 Last Admin: 03/07/20 08:14 Dose: 60 mg Furosemide (Lasix) 20 mg PO DAILY [facility] Stop: 10/28/19 08:59 Last Admin: 09/07/19 08:14 Dose: 20 mg Gabapentin (Neurontin) 300 mg PO BID [facility] Stop: 11/01/19 08:59 Last Admin: 09/07/19 16:37 Dose: 300 mg Glucagon (Glucagen) 1 mg IM PRN PRN PRN Reason: Blood Glucose less than 70 Stop: 10/28/19 03:51 Guaifenesin/Codeine Phosphate (Robitussin Ac) 10 ml PO Q6HR [facility] Stop: 09/13/19 17:59 Last Admin: 09/07/19 17:28 Dose: 10 ml Insulin Glargine (Lantus Insulin) 26 units SUBQ HS [facility] Stop: 10/28/19 20:59 Last Admin: 09/07/19 20:41 Dose: 26 units Insulin Human Lispro (Humalog Insulin Sliding Scale) [address] [facility]; Protocol Stop: 10/28/19 07:29 Last Admin: 09/07/19 20:42 Dose: 2 units Levofloxacin (Levaquin) 750 mg PO DAILY [facility] Stop: 09/12/19 09:01 Last Admin: 09/07/19 08:13 Dose: 750 mg Levothyroxine Sodium (Synthroid) 0.025 mg PO QDAC [facility] Stop: 10/28/19 07:29 Last Admin: 09/07/19 06:34 Dose: 0.025 mg Lorazepam (Ativan) 0.5 mg PO Q4HR PRN; Protocol PRN Reason: Anxiety Stop: 09/28/19 02:35 Magnesium Hydroxide (Milk Of Magnesia) 30 ml PO HS PRN PRN Reason: Constipation Metoprolol Succinate (Toprol Xl) 50 mg PO DAILY [facility] Stop: 10/28/19 08:59 Last Admin: 09/07/19 10:00 Dose: Not Given Potassium Chloride (Klor-Con) 20 meq PO DAILY [facility] Stop: 10/28/19 08:59 Last Admin: 09/07/19 08:12 Dose: 20 meq Quetiapine Fumarate (Seroquel) 200 mg PO HS [facility]; Protocol Stop: 11/01/19 20:59 Last Admin: 09/07/19 20:42 Dose: 200 mg Quetiapine Fumarate (Seroquel) 50 mg PO BID [facility]; Protocol Stop: 11/01/19 16:59 Last Admin: 09/07/19 16:37 Dose: 50 mg Temazepam (Restoril) 15 mg PO HS [facility] Stop: 10/28/19 20:59 Last Admin: 09/07/19 20:43 Dose: 15 mg Tolterodine Tartrate (Detrol) 4 mg PO DAILY [facility] Stop: 10/28/19 08:59 Last Admin: 09/07/19 08:15 Dose: 4 mg Valproate Sodium (Depakene) 250 mg PO BID [facility]; Protocol Stop: 10/28/19 08:59 Last Admin: 09/07/19 16:37 Dose: 250 mg General: demented HEENT: NC/AT, PERRLA, EOMI, anicteric sclerae, throat clear Neck: Supple, No JVD, No thyromegaly, +2 carotid pulse wo bruit, No LAD Lungs: CTAB, congested Cardiovascular: RRR, Normal S1, Normal S2, without murmur Abdomen: soft, non-tender, non-distended Extremities: clear Neurological: no change Internal Medicine Assmt/Plan - Assessment Assessment: 1.HTN. 2.DM. 3.HYPOTHYROIDISM 4.PSYCHOSIS 5.ACUTE BRONCHITIS - Plan Plan: CONTINUE ON CURRENT MEDICATION AND DIET. Nutritional Asmnt/Malnutr-PDOC - Dietary Evaluation Malnutrition Findings (Please click <Entered> for more info): Nutritional Asmnt/Malnutrition Start: 09/02/19 14: 18 Text: Status: Complete Freq: Protocol: Document 09/02/19 14:18 QUIQUE (Rec: 09/02/19 14:27 [email or web address] [id number]) Nutritional Asmnt/Malnutrition Patient General Information Nutritional Screening Moderate Risk Diagnosis Psychosis Pertinent Medical Hx/Surgical Hx DM, HTN, Hypothyroidism, Bladder dysfunction, Dementia, Psychosis Subjective Information Pt is a 74-year-old female admitted on 08/29 d/t agitation and verbal abuse of nursing staff. Pt is eating an estimated 52% of meals since admit date (x4 days) Per Meal/ Nutrition Activity Record. Dietary is currently providing an estimated 1500 kcals and 100 gm Pro, per Pt PO intake this is providing an estimated 780 kcals and 52gm Pro to meet 71% kcal and 100% Pro needs. PO intake fair, will continue to monitor. F/U in 3- 5 days, will reassess PO intake and add nutritional supplement if appropriate. Pt POC glucose levels are high, visited pt in room today after lunch. Pt had an apple juice on her bedside tray, educated pt on her CCHO diet and offered a milk instead. Pt understood and was fine with a milk. Spoke with pt nurse and PULL WORKER regarding juice and diet Rx, provided quick diet education, both understood. Spoke with pt nurse Chanda concerning A1c pending order, nurse to F/U. Per PULL WORKER, pt ate 25% breakfast and 75% lunch today. Anthropometrics HT: 52 WT: 169 LB (76.82 kg) ABW: 125 LB (56.70 kg) BMI: 30.91 (Obese) GI/ Skin Integrity GI: WNL, Soft, Non-tender, Round BM: 3/2 x1 I/O: 1210/Not Noted Skin: Buttocks dry scab, Dryness Castro: 18 Diet Order: Mechanical Soft, CCHO 60gm, NCS Estimated Energy Needs: (Obese , ABW) 7881-1807 kcals (20-25 kcals/ kg) 45-60g Pro (0.8-1.0 g/kg) 6377-5395 ml (25-30 ml/kg) Current Diet Order/ Nutrition Support Mechanical Soft, CCHO 60gm, NCS Pertinent Medications Maalox (PRN), Glutose 40% (PRN ), Colace, Albuterol (PRN), Lasix, Glucagen (PRN), INS-SS, Synthroid, MOM (PRN), Klor- con Pertinent Labs Current A1c Pending POC Glucose (last 24 hours): 135, 149, 189, 189,186 07/17: A1c 8.8% 07/09: Glucose 179, Alk Phos 123 , Tags 205, HDL 30 Nutritional Hx/Data Height 1.57 m Height (Calculated Centimeters) 157.5 Current Weight (lbs) 76.657 kg Weight (Calculated Kilograms) 76.7 Weight (Calculated Grams) 04162.1 [place] Body Weight 110 LB (50 kg) % [place] Body Weight 154 Body Mass Index (BMI) 30.9 Weight Status Obese GI Symptoms GI Symptoms None Last BM 3/2 x1 Skin Integrity/Comment: Skin: Buttocks dry scab, Dryness Castro: 18 Current %PO Fair (50-74%) Estimated Nutritional Goals BEE in Kcals: Adj wt of IBW Calories/Kcals/Kg 20-25 Kcals Calculated 3741-6986 Protein: Adj wt of IBW Protein g/k.8-1.0 Protein Calculated 45-60 Fluid: ml 3938-8285 ml (25-30 ml/kg) Nutritional Problem 1. Problem Problem Obesity Etiology r/t consistent energy overconsumption Signs/Symptoms: aeb BMI >30 (30.91). Malnutrition Related to Morbid Obesity Malnutrition related to morbid obesity No Intervention/Recommendation Comments 1.Continue Mechanical Soft, CCHO 60gm, NCS diet as tolerated. 2.Continue antihyperglycemic medications for glucose control per MD order. Expected Outcomes/Goals Expected Outcomes/Goals 1.PO intake to meet 75% of estimated nutritional needs. 2.Gradual weight loss (0.5-1.0 LB/week) trending toward IBW preferred. 3.Monitor PO intake, wt, nutrition related labs to trend WNL, and skin integrity to trend WNL. 4.F/U as moderate risk in 3-5 days, 09/04-09/06
[2019-09-08] MEDS: Codeine /Guaifenesin 200mg-20mg/10 mL UDC PO SCH ×4 (00:30→17:00)
--- NOTE | 2019-09-08 01:12 | Progress Notes ---
DATE: 09/07/[address] Velásquez. IDENTIFYING DATA: A 74-year-old female from [facility] with a history of agitated, verbally aggression towards staff and trying to leave the facility without knowing where she is going to go. CURRENT MEDICATION: Reconciliation reviewed. Cymbalta 60 mg daily, Lasix, gabapentin, Seroquel 200 mg at nighttime, 50 p.o. b.i.d. and Depakote 250 b.i.d. Depakote levels pending. Today on [id number] evaluation, the patient engaged avoiding to room. The patient just reports that her cough is improving. ASSESSMENT AND PLAN: The patient has ongoing depressive symptoms. Continue to need strict monitoring and continue monitoring paranoid symptoms and continue with primary psychiatrist treatment plan and goals. JOB# [id number]
[2019-09-08] MEDS: Levothyroxine 0.025 Mg Tab PO SCH (06:52)
[2019-09-08] MEDS: INSULIN LISPRO SLIDING SCALE 100 UNITS/ML UNIT SUBQ SCH ×4 (07:02→20:18)
[2019-09-08] MEDS: Potassium Chloride 20 mEq ER Tab PO SCH (08:27)
[2019-09-08] MEDS: Aspirin 81mg Chewable Tab PO SCH (08:28)
--- NOTE | 2019-09-08 09:56 | Progress Notes ---
DATE: SUBJECTIVE: I appreciate the second evaluation by Dr. Munoz, recommended to continue the current medication regimen. Diagnosed with hypertension, diabetes, hypothyroidism and acute bronchitis. Medication reconciliation reviewed. Today on [id number] evaluation, the patient reports her cough is improving. She is also reporting that her mood is improving. MENTAL STATUS EXAMINATION: Less anxious, less redirectable. ASSESSMENT AND PLAN: Major depressive disorder who continues to demonstrate seizure symptoms, although improving with the recent adjustments in medications. We will continue with primary psychiatrist's treatment plan and goals as she continues to further stabilize. JOB# [id number]
--- NOTE | 2019-09-08 19:48 | Internal Medicine Prog Note ---
Internal Medicine Subjective - Subjective Service Date: 09/08/19 Patient seen and examined:: without staff (SHE FEELS BETTER,LESS COUGH) Patient is:: awake, verbal, ambulating, talking, confused Per staff patient has:: no adverse event, confused Internal Medicine Objective - Results Recent Labs: Laboratory Last Values POC Glucose 175 MG/DL (70 - 105) H 09/08/19 06:58 - Physical Exam Vitals and I&O: Vital Signs Temp 98.0 F 09/08/19 14:00 Pulse 79 09/08/19 14:00 Resp 18 09/08/19 14:00 BP 114/69 09/08/19 14:00 Pulse Ox 96 09/08/19 14:00 Intake & Output 09/08/19 09/08/19 09/09/19 06:59 18:59 06:59 Intake Total 1000 Balance 1000 Intake: Oral 1000 Other: # Voids # Bowel Movements Active Medications: Current Medications Acetaminophen (Tylenol) 650 mg PO Q4H PRN PRN Reason: Pain (Mild 1-3) Stop: 10/28/19 02:35 Last Admin: 09/07/19 17:31 Dose: 650 mg Acetaminophen/Hydrocodone Bitart ([place] 10 Mg/325 Mg) 1 tab PO Q4H PRN PRN Reason: Pain (Severe 7-10) Stop: 10/28/19 04:54 Last Admin: 08/31/19 06:52 Dose: 1 tab Al Hydrox/Mg Hydrox/Simethicone (Maalox) 30 ml PO Q4HR PRN PRN Reason: GI DISTRESS Stop: 10/28/19 02:35 Aspirin (Aspirin Chewable) 81 mg PO DAILY [facility] Stop: 10/28/19 08:59 Last Admin: 09/08/19 08:28 Dose: 81 mg Dextrose (Glutose 40%) 18.75 gm PO PRN PRN PRN Reason: Blood Glucose less than 70 Stop: 10/28/19 03:51 Docusate Sodium (Colace) 100 mg PO BID [facility] Stop: 10/28/19 08:59 Last Admin: 09/08/19 16:06 Dose: 100 mg Duloxetine HCl (Cymbalta) 60 mg PO DAILY [facility] Stop: 10/28/19 08:59 Last Admin: 09/08/19 08:26 Dose: 60 mg Furosemide (Lasix) 20 mg PO DAILY [facility] Stop: 10/28/19 08:59 Last Admin: 09/08/19 08:26 Dose: 20 mg Gabapentin (Neurontin) 300 mg PO BID [facility] Stop: 11/01/19 08:59 Last Admin: 09/08/19 16:06 Dose: 300 mg Glucagon (Glucagen) 1 mg IM PRN PRN PRN Reason: Blood Glucose less than 70 Stop: 10/28/19 03:51 Guaifenesin/Codeine Phosphate (Robitussin Ac) 10 ml PO Q6HR [facility] Stop: 09/13/19 17:59 Last Admin: 09/08/19 17:00 Dose: 10 ml Insulin Glargine (Lantus Insulin) 26 units SUBQ HS [facility] Stop: 10/28/19 20:59 Last Admin: 09/07/19 20:41 Dose: 26 units Insulin Human Lispro (Humalog Insulin Sliding Scale) 0 units SUBQ [facility]; Protocol Stop: 10/28/19 07:29 Last Admin: 09/08/19 16:17 Dose: Not Given Levofloxacin (Levaquin) 750 mg PO DAILY [facility] Stop: 09/12/19 09:01 Last Admin: 09/08/19 08:27 Dose: 750 mg Levothyroxine Sodium (Synthroid) 0.025 mg PO QDAC [facility] Stop: 10/28/19 07:29 Last Admin: 09/08/19 06:52 Dose: 0.025 mg Lorazepam (Ativan) 0.5 mg PO Q4HR PRN; Protocol PRN Reason: Anxiety Stop: 09/28/19 02:35 Magnesium Hydroxide (Milk Of Magnesia) 30 ml PO HS PRN PRN Reason: Constipation Metoprolol Succinate (Toprol Xl) 50 mg PO DAILY [facility] Stop: 10/28/19 08:59 Last Admin: 09/08/19 08:28 Dose: 50 mg Potassium Chloride (Klor-Con) 20 meq PO DAILY [facility] Stop: 10/28/19 08:59 Last Admin: 09/08/19 08:27 Dose: 20 meq Quetiapine Fumarate (Seroquel) 200 mg PO HS [facility]; Protocol Stop: 11/01/19 20:59 Last Admin: 09/07/19 20:42 Dose: 200 mg Quetiapine Fumarate (Seroquel) 50 mg PO BID [facility]; Protocol Stop: 11/01/19 16:59 Last Admin: 09/08/19 16:09 Dose: 50 mg Temazepam (Restoril) 15 mg PO HS [facility] Stop: 10/28/19 20:59 Last Admin: 09/07/19 20:43 Dose: 15 mg Tolterodine Tartrate (Detrol) 4 mg PO DAILY [facility] Stop: 10/28/19 08:59 Last Admin: 09/08/19 08:25 Dose: 4 mg Valproate Sodium (Depakene) 250 mg PO BID [facility]; Protocol Stop: 10/28/19 08:59 Last Admin: 09/08/19 16:07 Dose: 250 mg General: demented HEENT: NC/AT, PERRLA, EOMI, anicteric sclerae, throat clear Neck: Supple, No JVD, No thyromegaly, +2 carotid pulse wo bruit, No LAD Lungs: CTAB, congested Cardiovascular: RRR, Normal S1, Normal S2, without murmur Abdomen: soft, non-tender, non-distended Extremities: clear Neurological: no change Internal Medicine Assmt/Plan - Assessment Assessment: 1.HTN. 2.DM. 3.HYPOTHYROIDISM 4.PSYCHOSIS 5.ACUTE BRONCHITIS - Plan Plan: CONTINUE ON CURRENT MEDICATION AND DIET. Nutritional Asmnt/Malnutr-PDOC - Dietary Evaluation Malnutrition Findings (Please click <Entered> for more info): Nutritional Asmnt/Malnutrition Start: 09/02/19 14: 18 Text: Status: Complete Freq: Protocol: Document 09/02/19 14:18 QUIQUE (Rec: 09/02/19 14:27 [email or web address] [id number]) Nutritional Asmnt/Malnutrition Patient General Information Nutritional Screening Moderate Risk Diagnosis Psychosis Pertinent Medical Hx/Surgical Hx DM, HTN, Hypothyroidism, Bladder dysfunction, Dementia, Psychosis Subjective Information Pt is a 74-year-old female admitted on 08/29 d/t agitation and verbal abuse of nursing staff. Pt is eating an estimated 52% of meals since admit date (x4 days) Per Meal/ Nutrition Activity Record. Dietary is currently providing an estimated 1500 kcals and 100 gm Pro, per Pt PO intake this is providing an estimated 780 kcals and 52gm Pro to meet 71% kcal and 100% Pro needs. PO intake fair, will continue to monitor. F/U in 3- 5 days, will reassess PO intake and add nutritional supplement if appropriate. Pt POC glucose levels are high, visited pt in room today after lunch. Pt had an apple juice on her bedside tray, educated pt on her CCHO diet and offered a milk instead. Pt understood and was fine with a milk. Spoke with pt nurse and JAVA PROGRAMMING PROFESSOR regarding juice and diet Rx, provided quick diet education, both understood. Spoke with pt nurse Chanda concerning A1c pending order, nurse to F/U. Per JAVA PROGRAMMING PROFESSOR, pt ate 25% breakfast and 75% lunch today. Anthropometrics HT: 52 WT: 169 LB (76.82 kg) ABW: 125 LB (56.70 kg) BMI: 30.91 (Obese) GI/ Skin Integrity GI: WNL, Soft, Non-tender, Round BM: 3/2 x1 I/O: 1210/Not Noted Skin: Buttocks dry scab, Dryness Castro: 18 Diet Order: Mechanical Soft, CCHO 60gm, NCS Estimated Energy Needs: (Obese , ABW) 5481-1196 kcals (20-25 kcals/ kg) 45-60g Pro (0.8-1.0 g/kg) 1701-0114 ml (25-30 ml/kg) Current Diet Order/ Nutrition Support Mechanical Soft, CCHO 60gm, NCS Pertinent Medications Maalox (PRN), Glutose 40% (PRN ), Colace, Albuterol (PRN), Lasix, Glucagen (PRN), INS-SS, Synthroid, MOM (PRN), Klor- con Pertinent Labs Current A1c Pending POC Glucose (last 24 hours): 135, 149, 189, 189,186 07/17: A1c 8.8% 07/09: Glucose 179, Alk Phos 123 , Tags 205, HDL 30 Nutritional Hx/Data Height 1.57 m Height (Calculated Centimeters) 157.5 Current Weight (lbs) 76.657 kg Weight (Calculated Kilograms) 76.7 Weight (Calculated Grams) 10898.1 [place] Body Weight 110 LB (50 kg) % [place] Body Weight 154 Body Mass Index (BMI) 30.9 Weight Status Obese GI Symptoms GI Symptoms None Last BM 3/2 x1 Skin Integrity/Comment: Skin: Buttocks dry scab, Dryness Castro: 18 Current %PO Fair (50-74%) Estimated Nutritional Goals BEE in Kcals: Adj wt of IBW Calories/Kcals/Kg 20-25 Kcals Calculated 7488-5179 Protein: Adj wt of IBW Protein g/k.8-1.0 Protein Calculated 45-60 Fluid: ml 2789-1710 ml (25-30 ml/kg) Nutritional Problem 1. Problem Problem Obesity Etiology r/t consistent energy overconsumption Signs/Symptoms: aeb BMI >30 (30.91). Malnutrition Related to Morbid Obesity Malnutrition related to morbid obesity No Intervention/Recommendation Comments 1.Continue Mechanical Soft, CCHO 60gm, NCS diet as tolerated. 2.Continue antihyperglycemic medications for glucose control per MD order. Expected Outcomes/Goals Expected Outcomes/Goals 1.PO intake to meet 75% of estimated nutritional needs. 2.Gradual weight loss (0.5-1.0 LB/week) trending toward IBW preferred. 3.Monitor PO intake, wt, nutrition related labs to trend WNL, and skin integrity to trend WNL. 4.F/U as moderate risk in 3-5 days, 09/04-09/06
[2019-09-08] MEDS: Insulin Glargine 100 units/ml 10ml Vial SUBQ SCH (20:19)
[2019-09-09] MEDS: Codeine /Guaifenesin 200mg-20mg/10 mL UDC PO SCH ×4 (00:19→17:27)
[2019-09-09] MEDS: Levothyroxine 0.025 Mg Tab PO SCH (06:44)
[2019-09-09] MEDS: INSULIN LISPRO SLIDING SCALE 100 UNITS/ML UNIT SUBQ SCH ×4 (06:44→21:01)
[2019-09-09] MEDS: Aspirin 81mg Chewable Tab PO SCH (08:42)
[2019-09-09] MEDS: Potassium Chloride 20 mEq ER Tab PO SCH (08:43)
--- NOTE | 2019-09-09 19:50 | Progress Notes ---
DATE: SUBJECTIVE: Chart was reviewed and the patient interviewed. Also discussed the patient's condition with the staff and reviewed records and labs. The patient is still anxious and is still in a depressed mood, but her affect is slightly brighter. The patient also is interacting more. Also, during interview, the patient smiled appropriately. Otherwise, the patient denies any side effects of medications. ASSESSMENT: The patient seems to be less depressed and less psychotic. TREATMENT PLAN: Continue current treatment and medications and planning to discharge the patient tomorrow if she continues to improve. [facility]# [id number]
[2019-09-09] MEDS: Insulin Glargine 100 units/ml 10ml Vial SUBQ SCH (21:00)
--- NOTE | 2019-09-09 22:22 | Internal Medicine Prog Note ---
Internal Medicine Subjective - Subjective Service Date: 09/09/19 Patient seen and examined:: without staff (SHE IS DOING WELL) Patient is:: awake, verbal, ambulating, talking, confused Per staff patient has:: no adverse event, confused Internal Medicine Objective - Results Recent Labs: Laboratory Last Values POC Glucose 194 MG/DL (70 - 105) H 09/09/19 19:48 - Physical Exam Vitals and I&O: Vital Signs Temp 97.9 F 09/09/19 20:47 Pulse 80 09/09/19 20:47 Resp 20 09/09/19 20:47 BP 104/61 09/09/19 20:47 Pulse Ox 96 09/09/19 20:47 Intake & Output 09/09/19 09/09/19 09/10/19 06:59 18:59 06:59 Intake Total 120 1100 240 Balance 120 1100 240 Intake: Oral 120 1100 240 Other: # Voids 3 3 2 # Bowel Movements 0 0 Active Medications: Current Medications Acetaminophen (Tylenol) 650 mg PO Q4H PRN PRN Reason: Pain (Mild 1-3) Stop: 10/28/19 02:35 Last Admin: 09/07/19 17:31 Dose: 650 mg Acetaminophen/Hydrocodone Bitart ([place] 10 Mg/325 Mg) 1 tab PO Q4H PRN PRN Reason: Pain (Severe 7-10) Stop: 10/28/19 04:54 Last Admin: 08/31/19 06:52 Dose: 1 tab Al Hydrox/Mg Hydrox/Simethicone (Maalox) 30 ml PO Q4HR PRN PRN Reason: GI DISTRESS Stop: 10/28/19 02:35 Aspirin (Aspirin Chewable) 81 mg PO DAILY [facility] Stop: 10/28/19 08:59 Last Admin: 09/09/19 08:42 Dose: 81 mg Dextrose (Glutose 40%) 18.75 gm PO PRN PRN PRN Reason: BS Below 70 if tolerate po Stop: 10/28/19 03:51 Docusate Sodium (Colace) 100 mg PO BID [facility] Stop: 10/28/19 08:59 Last Admin: 09/09/19 17:28 Dose: 100 mg Duloxetine HCl (Cymbalta) 60 mg PO DAILY [facility] Stop: 10/28/19 08:59 Last Admin: 03/09/20 08:42 Dose: 60 mg Furosemide (Lasix) 20 mg PO DAILY [facility] Stop: 10/28/19 08:59 Last Admin: 09/09/19 08:43 Dose: 20 mg Gabapentin (Neurontin) 300 mg PO BID [facility] Stop: 11/01/19 08:59 Last Admin: 09/09/19 17:28 Dose: 300 mg Glucagon (Glucagen) 1 mg IM PRN PRN PRN Reason: BS Below 70 if not tolerate po Stop: 10/28/19 03:51 Guaifenesin/Codeine Phosphate (Robitussin Ac) 10 ml PO Q6HR [facility] Stop: 09/13/19 17:59 Last Admin: 09/09/19 17:27 Dose: 10 ml Insulin Glargine (Lantus Insulin) 26 units SUBQ HS [facility] Stop: 10/28/19 20:59 Last Admin: 09/09/19 21:00 Dose: 26 units Insulin Human Lispro (Humalog Insulin Sliding Scale) 0 units SUBQ [facility]; Protocol Stop: 10/28/19 07:29 Last Admin: 09/09/19 21:01 Dose: 2 units Levofloxacin (Levaquin) 750 mg PO DAILY [facility] Stop: 09/12/19 09:01 Last Admin: 09/09/19 08:44 Dose: 750 mg Levothyroxine Sodium (Synthroid) 0.025 mg PO QDAC [facility] Stop: 10/28/19 07:29 Last Admin: 09/09/19 06:44 Dose: 0.025 mg Lorazepam (Ativan) 0.5 mg PO Q4HR PRN; Protocol PRN Reason: Anxiety Stop: 09/28/19 02:35 Magnesium Hydroxide (Milk Of Magnesia) 30 ml PO HS PRN PRN Reason: Constipation Metoprolol Succinate (Toprol Xl) 50 mg PO DAILY [facility] Stop: 10/28/19 08:59 Last Admin: 09/09/19 08:44 Dose: 50 mg Potassium Chloride (Klor-Con) 20 meq PO DAILY [facility] Stop: 10/28/19 08:59 Last Admin: 09/09/19 08:43 Dose: 20 meq Quetiapine Fumarate (Seroquel) 200 mg PO HS [facility]; Protocol Stop: 11/01/19 20:59 Last Admin: 09/09/19 21:01 Dose: 200 mg Quetiapine Fumarate (Seroquel) 50 mg PO BID [facility]; Protocol Stop: 11/01/19 16:59 Last Admin: 09/09/19 17:28 Dose: 50 mg Temazepam (Restoril) 15 mg PO HS [facility] Stop: 10/28/19 20:59 Last Admin: 09/09/19 21:02 Dose: 15 mg Tolterodine Tartrate (Detrol) 4 mg PO DAILY [facility] Stop: 10/28/19 08:59 Last Admin: 09/09/19 08:43 Dose: 4 mg Valproate Sodium (Depakene) 250 mg PO BID [facility]; Protocol Stop: 10/28/19 08:59 Last Admin: 09/09/19 17:27 Dose: 250 mg General: demented HEENT: NC/AT, PERRLA, EOMI, anicteric sclerae, throat clear Neck: Supple, No JVD, No thyromegaly, +2 carotid pulse wo bruit, No LAD Lungs: CTAB, congested Cardiovascular: RRR, Normal S1, Normal S2, without murmur Abdomen: soft, non-tender, non-distended Extremities: clear Neurological: no change Internal Medicine Assmt/Plan - Assessment Assessment: 1.HTN. 2.DM. 3.HYPOTHYROIDISM 4.PSYCHOSIS 5.ACUTE BRONCHITIS - Plan Plan: CONTINUE ON CURRENT MEDICATION AND DIET. Nutritional Asmnt/Malnutr-PDOC - Dietary Evaluation Malnutrition Findings (Please click <Entered> for more info): Nutritional Asmnt/Malnutrition Start: 09/02/19 14: 18 Text: Status: Complete Freq: Protocol: Document 09/02/19 14:18 QUIQUE (Rec: 09/02/19 14:27 [email or web address] [id number]) Nutritional Asmnt/Malnutrition Patient General Information Nutritional Screening Moderate Risk Diagnosis Psychosis Pertinent Medical Hx/Surgical Hx DM, HTN, Hypothyroidism, Bladder dysfunction, Dementia, Psychosis Subjective Information Pt is a 74-year-old female admitted on 08/29 d/t agitation and verbal abuse of nursing staff. Pt is eating an estimated 52% of meals since admit date (x4 days) Per Meal/ Nutrition Activity Record. Dietary is currently providing an estimated 1500 kcals and 100 gm Pro, per Pt PO intake this is providing an estimated 780 kcals and 52gm Pro to meet 71% kcal and 100% Pro needs. PO intake fair, will continue to monitor. F/U in 3- 5 days, will reassess PO intake and add nutritional supplement if appropriate. Pt POC glucose levels are high, visited pt in room today after lunch. Pt had an apple juice on her bedside tray, educated pt on her CCHO diet and offered a milk instead. Pt understood and was fine with a milk. Spoke with pt nurse and EXERCISE SCIENCE INTERNSHIP regarding juice and diet Rx, provided quick diet education, both understood. Spoke with pt nurse Chanda concerning A1c pending order, nurse to F/U. Per [employer], pt ate 25% breakfast and 75% lunch today. Anthropometrics HT: 52 WT: 169 LB (76.82 kg) ABW: 125 LB (56.70 kg) BMI: 30.91 (Obese) GI/ Skin Integrity GI: WNL, Soft, Non-tender, Round BM: 3/2 x1 I/O: 1210/Not Noted Skin: Buttocks dry scab, Dryness Castro: 18 Diet Order: Mechanical Soft, CCHO 60gm, NCS Estimated Energy Needs: (Obese , ABW) 1444-6741 kcals (20-25 kcals/ kg) 45-60g Pro (0.8-1.0 g/kg) 4707-1524 ml (25-30 ml/kg) Current Diet Order/ Nutrition Support Mechanical Soft, CCHO 60gm, NCS Pertinent Medications Maalox (PRN), Glutose 40% (PRN ), Colace, Albuterol (PRN), Lasix, Glucagen (PRN), INS-SS, Synthroid, MOM (PRN), Klor- con Pertinent Labs Current A1c Pending POC Glucose (last 24 hours): 135, 149, 189, 189,186 07/17: A1c 8.8% 07/09: Glucose 179, Alk Phos 123 , Tags 205, HDL 30 Nutritional Hx/Data Height 1.57 m Height (Calculated Centimeters) 157.5 Current Weight (lbs) 76.657 kg Weight (Calculated Kilograms) 76.7 Weight (Calculated Grams) 24765.1 [place] Body Weight 110 LB (50 kg) % [place] Body Weight 154 Body Mass Index (BMI) 30.9 Weight Status Obese GI Symptoms GI Symptoms None Last BM 3/2 x1 Skin Integrity/Comment: Skin: Buttocks dry scab, Dryness Castro: 18 Current %PO Fair (50-74%) Estimated Nutritional Goals BEE in Kcals: Adj wt of IBW Calories/Kcals/Kg 20-25 Kcals Calculated 5909-4094 Protein: Adj wt of IBW Protein g/k.8-1.0 Protein Calculated 45-60 Fluid: ml 2759-4548 ml (25-30 ml/kg) Nutritional Problem 1. Problem Problem Obesity Etiology r/t consistent energy overconsumption Signs/Symptoms: aeb BMI >30 (30.91). Malnutrition Related to Morbid Obesity Malnutrition related to morbid obesity No Intervention/Recommendation Comments 1.Continue Mechanical Soft, CCHO 60gm, NCS diet as tolerated. 2.Continue antihyperglycemic medications for glucose control per MD order. Expected Outcomes/Goals Expected Outcomes/Goals 1.PO intake to meet 75% of estimated nutritional needs. 2.Gradual weight loss (0.5-1.0 LB/week) trending toward IBW preferred. 3.Monitor PO intake, wt, nutrition related labs to trend WNL, and skin integrity to trend WNL. 4.F/U as moderate risk in 3-5 days, 09/04-09/06
[2019-09-10] MEDS: Codeine /Guaifenesin 200mg-20mg/10 mL UDC PO SCH ×4 (00:06→17:18)
[2019-09-10] MEDS: Levothyroxine 0.025 Mg Tab PO SCH (06:40)
[2019-09-10] MEDS: INSULIN LISPRO SLIDING SCALE 100 UNITS/ML UNIT SUBQ SCH ×3 (06:40→17:13)
[2019-09-10] MEDS: Aspirin 81mg Chewable Tab PO SCH (08:36)
[2019-09-10] MEDS: Potassium Chloride 20 mEq ER Tab PO SCH (08:37)
--- NOTE | 2019-09-10 12:44 | Discharge Summary ---
DATE OF DISCHARGE: 09/10/2019 PSYCHIATRIC DISCHARGE SUMMARY AGE: 74. SEX: Female. PHYSICIAN: Dr. Velásquez. FINAL DIAGNOSIS/PRIMARY DIAGNOSIS: Schizoaffective disorder, bipolar type, severe, with psychotic features. MEDICAL DIAGNOSES: 1. Hypertension. 2. Hypothyroidism. 3. Peripheral neuropathy. REASON FOR HOSPITALIZATION: The patient was [facility] the [facility] because of agitation and the patient was verbally abusive to staff and staff not able to handle her in [facility] and the patient was transferred to the hospital. HOSPITAL COURSE: The patient continued to be agitated in the beginning of her hospitalization. Later on, the patient was more depressed and wanted to stay by herself in the room most of the time. The patient was given Cymbalta and the dose adjusted to 60 mg every day and also was given gabapentin 300 mg twice a day. The patient also was started on Seroquel and the dose adjusted to 50 mg twice a day and 200 mg at bedtime. Gradually, the patient was not suicidal or depressed or agitated. The patient was returned back to [facility]. Physical examination of the patient showed as mentioned under final diagnosis. The patient had no major medical issues while in the hospital. AFTER DISCHARGE PLANS: The patient discharged from the hospital and returned to [facility] with plan for outpatient treatment and followup there. EXPECTED OUTCOME AFTER DISCHARGE: Fair if the patient continues her outpatient treatment and if she followed up with discharge plans. [facility]# [id number]
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
== END 2019-09-10 18:25 | DRG 885 ==
LOC: GERO 08-29 00:40
PROVIDERS: ADMIT Psychiatry & Neurology Psychiatry; ATTEND Psychiatry & Neurology Psychiatry
DX: F25.0 Schizoaffective disorder, bipolar type (principal); E11.42 Type 2 diabetes mellitus with diabetic polyneuropathy; E03.9 Hypothyroidism, unspecified; Z79.899 Other long term (current) drug therapy; Z79.84 Long term (current) use of oral hypoglycemic drugs; I10 Essential (primary) hypertension; J44.9 Chronic obstructive pulmonary disease, unspecified; F32.9 Major depressive disorder, single episode, unspecified
CPT/HCPCS: 82948-90; 83036-90; J1815; Z7610